=== PATIENT | male | born 1980 | race American Indian/Alaskan Native ===

== ENCOUNTER 2019-11-19 03:54 | Inpatient (IN) | payer OTHER ==
[2019-11-19 04:41] LABS: Basophils # (Auto) 0.1 K/mm3 (0.0-0.1); Basophils % (Auto) 0.9 % (0.0-1.8); Eosinophils # (Auto) 0.1 K/mm3 (0.0-0.4); Eosinophils % (Auto) 0.5 % (0.0-4.3); Hematocrit 42.3 % (35.5-45.6); Hemoglobin 13.6 gm/dl (11.8-15.2); Mean Corpuscular HGB Conc 32 % (32-34); Mean Corpuscular Volume 81 fl (84-94); Monocytes # (Auto) 0.2 K/mm3 (0.0-0.8); Monocytes % (Auto) 1.6 % (0.0-7.3); Platelet Count 399 K/mm3 (140-440); Red Cell Distribution Width 14.5 % (13.2-15.2)
[2019-11-19 04:41] LABS: ABG Base Excess -10.2 mmol/L (-2.0-3.0); ABG HCO3 18.5 mmol/L (20.0-26.0); ABG Methemoglobin 0.6 % (0.0-1.5); ABG Oxygen Saturation 76.7 % (95.0-99.0); ABG PCO2 52.1 mm Hg; ABG PO2 51.2 mm Hg (80.0-90.0)
[2019-11-19] MEDS ORDERED: MINERAL OIL/PETROLATUM, WHITE OPHTH OINT 3.5 GM OU PRN (04:42)
[2019-11-19] MEDS ORDERED: LIP THERAPY VASELINE TP PRN (04:42)
--- NOTE | 2019-11-19 04:51 | Emergency Department Report ---
HPI - General Chief Complaint: Overdose Time Seen by Provider: 11/19/19 04:39 - HPI HPI: Room 25 --> 1 The patient is a 39-year-old male presenting with chief complaint of overdose. Per EMS the patient was found inside [employer] slumped over on the floor leaning up against the refrigerated beverage containers unresponsive. The patient was administered Narcan 2 mg by EMS and they report the patient began breathing quicker. The patient was administered a second round of Narcan 2 mg and he began to awaken. Patient appears confused and states he does not know what happened. Patient admits to taking "pills" but does not know what they are. Patient denies any other coingestants. Patient complains of chest pain which he states he just noticed since reawakening. In the ED the patient was persistently hypoxic in the 70s even when placed on BiPAP with an FiO2 100%. Subsequently the decision to intubate using RSI was made Location: [See above] Duration: [See above] Quality: [See above] Severity: [See above] Timing: [See above] Context: [See above] Modifying factors: [See above] Associated signs and symptoms: [see above] ED Past Medical Hx - Past Medical History Previous Medical History?: Yes Additional medical history: drug abuse - Surgical History Past Surgical History?: Yes - Family History Family history: no significant - Social History Smoking Status: Current Every Day Smoker Substance Use Type: Alcohol, Cocaine ED Review of Systems ROS: Stated complaint: POSS OD Other details as noted in HPI Respiratory: shortness of breath Cardiovascular: chest pain Neurological: confusion Physical Exam - Physical Exam Vital Signs: Vital Signs 11/19/19 03:55 Pulse Rate 100 H Respiratory 41 H Rate Blood Pressure 128/82 O2 Sat by Pulse 75 L Oximetry Physical Exam: GENERAL: The patient is well-developed well-nourished male appearing lethargic lying on stretcher with 100% O2 nonrebreather in place. [] HEENT: Normocephalic. Atraumatic. Extraocular motions are intact. Patient has moist mucous membranes. NECK: Supple. Trachea midline CHEST/LUNGS: Tachypnea. No wheezing auscultated HEART/CARDIOVASCULAR: Regular. There is no tachycardia. There is no gallop rub or murmur. ABDOMEN: Abdomen is soft, nontender. Patient has normal bowel sounds. There is no abdominal distention. SKIN: There is no rash. There is no edema. There is no diaphoresis. NEURO: The patient is awake and oriented but appears lethargic. The patient is cooperative. The patient has no focal neurologic deficits. The patient has normal speech MUSCULOSKELETAL: There is no evidence of acute injury. ED Course Vital Signs 11/19/19 03:55 Pulse Rate 100 H Respiratory 41 H Rate Blood Pressure 128/82 O2 Sat by Pulse 75 L Oximetry - Consultations Consultation #1: 11/19/19 05:46 South Asian History Professor paged 11/19/19 05:[address] Navarro - Intubation Time Out Performed: Yes Sedative: Etomidate Mg Given: 12 Paralytic: Succinylcholine Mg Given: 100 Laryngoscope: David Size: 3 ET Tube Size: 8 Tube Secured Depth (cm): 24 Tube Secured Location: lips Tube Placement Confirmation: equal breath sounds bilat, no breath sounds over epi, confirmation by capnometr Patient Tolerated Procedure: well Intubation Complications: other (transient bradycardia ) ED Medical Decision Making - Lab Data Result diagrams: 11/19/19 04:21 11/19/19 04:21 Laboratory Tests 11/19/19 11/19/19 11/19/19 04:20 04:21 04:21 WBC 11.2 H RBC 5.20 H Hgb 13.6 Hct 42.3 MCV 81 L MCH 26 L MCHC 32 RDW 14.5 Plt Count 399 Lymph % (Auto) 18.0 [place] % (Auto) 1.6 Eos % (Auto) 0.5 Baso % (Auto) 0.9 Lymph # 2.0 [place] # 0.2 Eos # 0.1 Baso # 0.1 Seg Neutrophils % 79.0 H Seg Neutrophils # 8.9 H PT 15.7 H INR 1.23 H ABG pH 7.168 L* ABG pCO2 52.1 ABG pO2 51.2 L ABG HCO3 18.5 L ABG O2 Saturation 76.7 L ABG O2 Content 14.3 ABG Base Excess -10.2 L ABG Hemoglobin 13.5 L ABG Carboxyhemoglobin 1.6 ABG Methemoglobin 0.6 Oxyhemoglobin 75.0 L FiO2 100 Sodium Potassium Chloride Carbon Dioxide Anion Gap BUN Creatinine Estimated GFR BUN/Creatinine Ratio Glucose Calcium Total Bilirubin AST ALT Alkaline Phosphatase Total Creatine Kinase CK-MB (CK-2) CK-MB (CK-2) Rel Index Troponin T NT-Pro-B Natriuret Pep Total Protein Albumin Albumin/Globulin Ratio Salicylates Acetaminophen Plasma/Serum Alcohol 11/19/19 11/19/19 11/19/19 04:21 04:21 04:56 WBC RBC Hgb Hct MCV MCH MCHC RDW Plt Count Lymph % (Auto) [place] % (Auto) Eos % (Auto) Baso % (Auto) Lymph # [place] # Eos # Baso # Seg Neutrophils % Seg Neutrophils # PT INR ABG pH ABG pCO2 ABG pO2 ABG HCO3 ABG O2 Saturation ABG O2 Content ABG Base Excess ABG Hemoglobin ABG Carboxyhemoglobin ABG Methemoglobin Oxyhemoglobin FiO2 Sodium 136 L Potassium 5.5 H Chloride 96.6 L Carbon Dioxide 18 L Anion Gap 27 BUN 21 H Creatinine 2.2 H Estimated GFR 33 BUN/Creatinine Ratio 10 Glucose 393 H Calcium 9.3 Total Bilirubin < 0.20 AST 27 ALT 32 Alkaline Phosphatase 61 Total Creatine Kinase 392 H CK-MB (CK-2) 4.0 CK-MB (CK-2) Rel Index 1.0 Troponin T < 0.010 NT-Pro-B Natriuret Pep 55.89 Total Protein 7.2 Albumin 4.6 Albumin/Globulin Ratio 1.8 Salicylates < 0.3 L Acetaminophen Plasma/Serum Alcohol < 0.01 11/19/19 04:56 WBC RBC Hgb Hct MCV MCH MCHC RDW Plt Count Lymph % (Auto) [place] % (Auto) Eos % (Auto) Baso % (Auto) Lymph # [place] # Eos # Baso # Seg Neutrophils % Seg Neutrophils # PT INR ABG pH ABG pCO2 ABG pO2 ABG HCO3 ABG O2 Saturation ABG O2 Content ABG Base Excess ABG Hemoglobin ABG Carboxyhemoglobin ABG Methemoglobin Oxyhemoglobin FiO2 Sodium Potassium Chloride Carbon Dioxide Anion Gap BUN Creatinine Estimated GFR BUN/Creatinine Ratio Glucose Calcium Total Bilirubin AST ALT Alkaline Phosphatase Total Creatine Kinase CK-MB (CK-2) CK-MB (CK-2) Rel Index Troponin T NT-Pro-B Natriuret Pep Total Protein Albumin Albumin/Globulin Ratio Salicylates Acetaminophen < 5.0 L Plasma/Serum Alcohol - EKG Data -: EKG Interpreted by Me EKG shows normal: sinus rhythm Rate: normal - EKG Data When compared to previous EKG there are: previous EKG unavailable Interpretation: nonspecific ST-T wave janice (T-wave inversion in lead 3) - Radiology Data Radiology results: report reviewed (chest x-ray #1), image reviewed (chest x-ray #1, chest x-ray #2) interpreted by me: Chest x-ray #1- left lung haziness Chest x-ray #2-ET tube in appropriate position. Left long haziness [facility] [address] [place] [address] XRay Report Signed Patient: ALYSE HELTON MR#: [id number] : 1980 Acct:[id number] Age/Sex: 39 / M ADM Date: 11/19/19 Loc: ED Attending Dr: Ordering Physician: NIEVES DAWN MD Date of Service: 11/19/19 Procedure(s): XR chest 1V ap Accession Number(s): [id number] cc: NIEVES DAWN MD Fluoro Time In Minutes: CHEST 1 VIEW, 11/19/2019 4:14 AM CLINICAL INFORMATION/INDICATION: Shortness of breath COMPARISON: None FINDINGS: SUPPORT DEVICES: None. HEART: Cardiac silhouette is normal in size. LUNGS/PLEURA: There is faint airspace disease throughout the left lung. The right lung appears grossly clear. No large pleural effusion is visualized. ADDITIONAL FINDINGS: No additional acute findings. IMPRESSION: 1. Left lung airspace disease concerning for pneumonia. Signer Name: Edie Davis MD Signed: 11/19/2019 4:47 AM Workstation Name: [id number] Transcribed By: EB Dictated By: Edie Davis MD Electronically Authenticated By: Edie Davis MD Signed Date/Time: 11/19/19446 DD/ 5 TD/TT: [address] [address] XRay Report Signed Patient: ALYSE HELTON MR#: [id number] : 1980 Acct:[id number] Age/Sex: 39 / M ADM Date: 11/19/19 Loc: ED Attending Dr: Ordering Physician: NIEVES DAWN MD Date of Service: 11/19/19 Procedure(s): XR chest 1V ap Accession Number(s): [id number] cc: NIEVES DAWN MD Fluoro Time In Minutes: CHEST 1 VIEW, 11/19/2019 4:45 AM CLINICAL INFORMATION/INDICATION: Respiratory failure COMPARISON: Chest radiograph, 11/19/2019 at 4:14 AM FINDINGS: SUPPORT DEVICES: There has been interval placement of endotracheal tube with tip approximately 3 cm above the level of the kaity. An esophagogastric tube is also been placed with distal end below the level of the diaphragm. HEART: The heart is normal in size. LUNGS/PLEURA: Parenchymal disease is again noted throughout the left lung. Right perihilar interstitial disease is now noted. ADDITIONAL FINDINGS: No additional acute findings. IMPRESSION: 1. Placement of endotracheal tube and esophagogastric tube as above. 2. Asymmetric parenchymal disease. Considerations would include pneumonia or pulmonary edema. Signer Name: Edie Davis MD Signed: 11/19/2019 5:27 AM Workstation Name: [id number] Transcribed By: EB Dictated By: Edie Davis MD Electronically Authenticated By: Edie Davis MD Signed Date/Time: 11/19/19526 DD/ 4 TD/TT: - Differential Diagnosis overdose, aspiration pneumonia, pulmonary edema, respiratory failure Critical Care Time: Yes Critical care time in (mins) excluding proc time.: 45 Critical care attestation.: If time is entered above; I have spent that time in minutes in the direct care of this critically ill patient, excluding procedure time. ED Disposition Clinical Impression: Respiratory failure, Overdose, Pneumonia, Renal insufficiency, Hyperkalemia, Hyperglycemia Disposition: OP ADMIT IP TO THIS HOSP Is pt being admited?: Yes Condition: Serious Instructions: Bacterial Pneumonia (ED) Referrals: PRIMARY CARE, [Primary Care Provider] - 3-5 Days Time of Disposition: 05:30 (hospitalist paged (Dr Fermin))
[2019-11-19 04:52] LABS: ABG PH 7.168 pH Units (7.350-7.450)
[2019-11-19] MEDS ORDERED: LORazepam 2 MG/ML VIAL ONE (04:56)
[2019-11-19 04:59] LABS: INR 1.23 (0.87-1.13)
[2019-11-19 05:00] LABS: Alanine Aminotransferase 32 units/L (7-56); Albumin 4.6 g/dL (3.9-5); BUN/Creatinine Ratio 10; Blood Urea Nitrogen 21 mg/dL (9-20); Calcium 9.3 mg/dL (8.4-10.2); Hemolysis Index 39
[2019-11-19] MEDS ORDERED: MIDAZOLAM 5 MG/5 ML INJ MDV IV NR (05:00)
[2019-11-19] MEDS ORDERED: cefTRIAXone/NS 1 GM/50 ML 1 GM/50 ML BAG IV ONE (05:20)
[2019-11-19] MEDS ORDERED: AZITHROMYCIN 500 MG in SODIUM CHLORIDE 0.9% 250ML 250 ML IV ONE (05:20)
[2019-11-19] MEDS ORDERED: INSULIN REGULAR, HUMAN 100 UNITS/1 ML IV ONE ×2 (05:28→22:52)
--- NOTE | 2019-11-19 05:31 | XRay Report ---
CHEST 1 VIEW, 11/19/2019 4:45 AM CLINICAL INFORMATION/INDICATION: Respiratory failure COMPARISON: Chest radiograph, 11/19/2019 at 4:14 AM FINDINGS: SUPPORT DEVICES: There has been interval placement of endotracheal tube with tip approximately 3 cm a sally the level of the kaity. An esophagogastric tube is also been placed with distal end below the l evel of the diaphragm. HEART: The heart is normal in size. LUNGS/PLEURA: Parenchymal disease is again noted throughout the left lung. Right perihilar interstiti al disease is now noted. ADDITIONAL FINDINGS: No additional acute findings. IMPRESSION: 1. Placement of endotracheal tube and esophagogastric tube as above. 2. Asymmetric parenchymal disease. Considerations would include pneumonia or pulmonary edema. Signer Name: Edie Davis MD Signed: 11/19/2019 5:27 AM Workstation Name: [id number]
[2019-11-19] MEDS: MIDAZOLAM 2 MG/2 ML INJ IV PRN ×2 (05:45→06:00)
[2019-11-19 06:01] LABS: Amphetamine Screen,Urine PRESUMPTIVE NEGATIVE; Benzodiazepines Screen,Urine PRESUMPTIVE NEGATIVE; Cannabinoid Screen,Urine PRESUMPTIVE NEGATIVE; Cocaine Screen,Urine PRESUMPTIVE NEGATIVE; Methadone Screen,Urine PRESUMPTIVE NEGATIVE
[2019-11-19] MEDS ORDERED: LORazepam 2 MG/ML VIAL IV ONE (06:15)
[2019-11-19] MEDS ORDERED: ETOMIDATE 20 MG/10 ML INJ IV ONE (06:15)
[2019-11-19] MEDS ORDERED: SUCCINYLCHOLINE CHLORIDE 200 MG/10 ML INJ MDV IV ONE (06:15)
[2019-11-19 06:20] LABS: Opiate Screen,Urine PRESUMPTIVE POSITIVE
--- NOTE | 2019-11-19 06:55 | Event Note ---
Date: 11/19/19 Called by ED re patient who was unresponsive and is on MVS-unable to oxygenate with high ventilator settings. ABG ordered, follow up ABG reviewed. Discussed with RT, changed ventilator mode and settings- follow up ABG ordered. Full consult to follow.
[2019-11-19] MEDS: MIDAZOLAM 100 MG in SODIUM CHLORIDE 0.9% 80 ML IV SCH ×2 (07:15→21:39)
[2019-11-19] MEDS ORDERED: fentaNYL 100 MCG/2 ML INJ IV ONE (11:13)
[2019-11-19] MEDS ORDERED: fentaNYL 100 MCG/2 ML INJ ONE (11:22)
[2019-11-19] MEDS ORDERED: fentaNYL 100 MCG/2 ML INJ IV PRN (11:27)
[2019-11-19] MEDS ORDERED: D5W/0.9% NACL 1,000 ML IV ONE (11:32)
[2019-11-19] MEDS ORDERED: D5W/0.9% NACL 1,000 ML IV SCH (12:00)
--- NOTE | 2019-11-19 12:38 | History and Physical Report ---
History of Present Illness Date of examination: 11/19/19 Date of admission: 11/19/19 06:33 Chief complaint: OD History of present illness: The patient is a 39-year-old male presenting with chief complaint of overdose. Per EMS/ER record, the patient was found inside [employer] station slumped over on the floor leaning up against the refrigerated beverage containers unresponsive. The patient was administered Narcan 2 mg by EMS and they report the patient began breathing quicker. The patient was administered a second round of Narcan 2 mg and he began to awaken. On admission, patient appeared confused and stated to the ER physician he does not know what happened. Patient admitted to the ER physician of taking "pills" but does not know what they were. Patient denied any other coingestants. Patient complained of chest pain which he states he just noticed after arrival to the emergency department. In the ED, the patient was persistently hypoxic in the 70s even when placed on BiPAP with an FiO2 100%. Subsequently the decision to intubate using RSI was made by the ER physician. Upon my evaluation, patient was noted to be intubated and somnolent. Family was at the bedside confirming that patient has had a long history of substance abuse for 20 years. Past History Past Medical History: No medical history Past Surgical History: No surgical history Social history: other (Significant substance/drug abuse.) Family history: no significant family history Medications and Allergies Allergies Allergy/AdvReac Type Severity Reaction Status Date / Time No Known Allergies Allergy Verified 11/19/19 05:44 Active Meds: Active Medications Fentanyl (Sublimaze) 50 mcg IV Q10MIN PRN PRN Reason: ANALGESIA Hydrophilic Ointment (Vaseline Lip Therapy) 1 applic TP Q2HR PRN PRN Reason: Dry Lips Midazolam HCl 100 mg/ Sodium (Chloride) 100 mls @ 2 mls/hr IV TITR JAVED; Pro tocol Last Titration: 11/19/19 12:13 Dose: 5 mg/hr, 5 mls/hr Documented by: Dextrose/Sodium Chloride (D5ns) 1,000 mls @ 100 mls/hr IV DIRECT JAVED Last Admin: 11/19/19 11:43 Dose: 100 mls/hr Documented by: Fentanyl Citrate (Fentanyl Drip Premix) 2,000 mcg in 100 mls @ 5.625 mls/hr IV TITR JAVED; Protocol Midazolam HCl (Versed) 2 mg IV Q10MIN PRN PRN Reason: Sedation Last Admin: 11/19/19 06:00 Dose: 2 mg Documented by: Multi-Ingred Cream/Lotion/Oil/Oint (Artificial Tears Ophth Oint) 1 applic OU Q4HR PRN PRN Reason: Dry Eye(s) Review of Systems ROS unobtainable: due to endotracheal tube, due to mental status Exam - Constitutional Vitals: Temp Pulse Resp BP Pulse Ox 97.4 F L 102 H 19 119/77 100 11/19/19 04:00 11/19/19 12:00 11/19/19 12:00 11/19/19 12:00 11/19/19 12:00 General appearance: Present: mild distress (Patient is somnolent and lethargic), well-nourished, other (Patient is orally intubated on mechanical ventilation.) - EENT Eyes: Present: PERRL ENT: hearing intact, clear oral mucosa - Neck Neck: Present: supple, normal ROM - Respiratory Respiratory effort: normal Respiratory: bilateral: CTA - Cardiovascular Heart Sounds: Present: S1 & S2. Absent: rub, click - Extremities Extremities: pulses symmetrical, No edema Peripheral Pulses: within normal limits - Abdominal General gastrointestinal: Present: soft, non-tender, non-distended, normal bowel sounds Male genitourinary: Present: normal - Integumentary Integumentary: Present: clear, warm, dry - Musculoskeletal Musculoskeletal: gait normal, strength equal bilaterally - Psychiatric Psychiatric: appropriate mood/affect, intact judgment & insight - Neurologic Neurologic: CNII-XII intact, moves all extremities Results - Labs CBC & Chem 7: 11/19/19 04:21 11/19/19 04:21 Labs: Laboratory Last Values WBC 11.2 K/mm3 (4.5-11.0) H 11/19/19 04:21 RBC 5.20 M/mm3 (3.65-5.03) H 11/19/19 04:21 Hgb 13.6 gm/dl (11.8-15.2) 11/19/19 04:21 Hct 42.3 % (35.5-45.6) 11/19/19 04:21 MCV 81 fl (84-94) L 11/19/19 04:21 MCH 26 pg (28-32) L 11/19/19 04:21 MCHC 32 % (32-34) 11/19/19 04:21 RDW 14.5 % (13.2-15.2) 11/19/19 04:21 Plt Count 399 K/mm3 (140-440) 11/19/19 04:21 Lymph % (Auto) 18.0 % (13.4-35.0) 11/19/19 04:21 [place] % (Auto) 1.6 % (0.0-7.3) 11/19/19 04:21 Eos % (Auto) 0.5 % (0.0-4.3) 11/19/19 04:21 Baso % (Auto) 0.9 % (0.0-1.8) 11/19/19 04:21 Lymph # 2.0 K/mm3 (1.2-5.4) 11/19/19 04:21 [place] # 0.2 K/mm3 (0.0-0.8) 11/19/19 04:21 Eos # 0.1 K/mm3 (0.0-0.4) 11/19/19 04:21 Baso # 0.1 K/mm3 (0.0-0.1) 11/19/19 04:21 Seg Neutrophils % 79.0 % (40.0-70.0) H 11/19/19 04:21 Seg Neutrophils # 8.9 K/mm3 (1.8-7.7) H 11/19/19 04:21 PT 15.7 Sec. (12.2-14.9) H 11/19/19 04:21 INR 1.23 (0.87-1.13) H 11/19/19 04:21 POC ABG pH 7.186 (7.35-7.45) L 11/19/19 09:04 ABG pH 7.168 pH Units (7.350-7.450) L* 11/19/19 04:20 POC ABG pCO2 66.6 (35-45) H 11/19/19 09:04 ABG pCO2 52.1 mm Hg 11/19/19 04:20 POC ABG pO2 80 (80-105) 11/19/19 09:04 ABG pO2 51.2 mm Hg (80.0-90.0) L 11/19/19 04:20 POC ABG HCO3 25.2 (22-26 mml/L) 11/19/19 09:04 ABG HCO3 18.5 mmol/L (20.0-26.0) L 11/19/19 04:20 POC ABG Total CO2 27 (23-27mmol/L) 11/19/19 09:04 POC ABG O2 Sat 92 11/19/19 09:04 ABG O2 Saturation 76.7 % (95.0-99.0) L 11/19/19 04:20 ABG O2 Content 14.3 (0.0-44) 11/19/19 04:20 POC ABG Base Excess -3 ((-2) - (+3)mmol/L) 11/19/19 09:04 ABG Base Excess -10.2 mmol/L (-2.0-3.0) L 11/19/19 04:20 ABG Hemoglobin 13.5 gm/dl (14.0-18.0) L 11/19/19 04:20 ABG Carboxyhemoglobin 1.6 % (0.0-5.0) 11/19/19 04:20 ABG Methemoglobin 0.6 % (0.0-1.5) 11/19/19 04:20 Oxyhemoglobin 75.0 % (95.0-99.0) L 11/19/19 04:20 FiO2 100 % 11/19/19 09:04 Sodium 136 mmol/L (137-145) L 11/19/19 04:21 Potassium 5.5 mmol/L (3.6-5.0) H 11/19/19 04:21 Chloride 96.6 mmol/L (98-107) L 11/19/19 04:21 Carbon Dioxide 18 mmol/L (22-30) L 11/19/19 04:21 Anion Gap 27 mmol/L 11/19/19 04:21 BUN 21 mg/dL (9-20) H 11/19/19 04:21 Creatinine 2.2 mg/dL (0.8-1.5) H 11/19/19 04:21 Estimated GFR 33 ml/min 11/19/19 04:21 BUN/Creatinine Ratio 10 % 11/19/19 04:21 Glucose 393 mg/dL (75-100) H 11/19/19 04:21 Calcium 9.3 mg/dL (8.4-10.2) 11/19/19 04:21 Total Bilirubin < 0.20 mg/dL (0.1-1.2) 11/19/19 04:21 AST 27 units/L (5-40) 11/19/19 04:21 ALT 32 units/L (7-56) 11/19/19 04:21 Alkaline Phosphatase 61 units/L (35-129) 11/19/19 04:21 Total Creatine Kinase 392 units/L (55-170) H 11/19/19 04:21 CK-MB (CK-2) 4.0 ng/mL (0.0-4.0) 11/19/19 04:21 CK-MB (CK-2) Rel Index 1.0 (0-4) 11/19/19 04:21 Troponin T < 0.010 ng/mL (0.00-0.029) 11/19/19 04:21 NT-Pro-B Natriuret Pep 55.89 pg/mL (0-450) 11/19/19 04:21 Total Protein 7.2 g/dL (6.3-8.2) 11/19/19 04:21 Albumin 4.6 g/dL (3.9-5) 11/19/19 04:21 Albumin/Globulin Ratio 1.8 % 11/19/19 04:21 Salicylates < 0.3 mg/dL (2.8-20.0) L 11/19/19 04:56 Urine Opiates Screen Presumptive positive 11/19/19 Unknown Urine Methadone Screen Presumptive negative 11/19/19 Unknown Acetaminophen < 5.0 ug/mL (10.0-30.0) L 11/19/19 04:56 Ur Barbiturates Screen Presumptive negative 11/19/19 Unknown Ur Phencyclidine Scrn Presumptive negative 11/19/19 Unknown Ur Amphetamines Screen Presumptive negative 11/19/19 Unknown U Benzodiazepines Scrn Presumptive negative 11/19/19 Unknown Urine Cocaine Screen Presumptive negative 11/19/19 Unknown U Marijuana (THC) Screen Presumptive negative 11/19/19 Unknown Drugs of Abuse Note Disclamer 11/19/19 Unknown Plasma/Serum Alcohol < 0.01 % (0-0.07) 11/19/19 04:21 Assessment and Plan Assessment and plan: Acute hypoxemic hypercapnic respiratory failure. Continue on mechanical ventilation per pulmonary. Pulmonary consulted. Follow-up serial ABG. Opioid overdose. Patient urine drug screen positive for opiates. Patient has a long history of polysubstance abuse of various different types of illegal street drugs per family. We will continue to monitor. Psychiatric consultation when patient medically stable. Acute kidney injury. Etiology likely secondary to ATN from hypotension from drug overdose. We do not have a baseline creatinine to compare. Continue IV fluid hydration. Check renal ultrasound. Nephrology consultation. Aspiration pneumonia. Chest x-ray reveals opacities. Start Levaquin. Hyperkalemia. Etiology secondary to renal insufficiency. Hyperglycemia. Family reports no history of diabetes mellitus type 2. Check hemoglobin A1c.
--- NOTE | 2019-11-19 15:01 | Consultation ---
History of Present Illness - History of Present Illness Thank you for the consultation ! My assessment and plan are as follows: CHRIS, likely due to acute tubular necrosis given the clinical scenario of hypoxemia respiratory failure patient also appears to be somewhat intravascularly volume depleted, we'll do a follow-up labs in the evening and see how he does Respiratory failure, having issues with oxygenation patient has been noted to have lung infiltrate we'll give cautious fluid Acidosis: Continue to monitor noted to have severe respiratory failure Admitted with opiate toxicity, currently intubated he is arousable There is no prior history of this patient no family member available at the bedside there is no telephone number listed His renal prognosis appears to be very guarded is quite likely that if his renal function continues to worsen or if it of left severe electrolyte disturbances he may need to start renal replacement therapy Patient also needs to be seen by pulmonary critical care for respiratory failure intubation and having issues with oxygenation Care plan was discussed with patient's nurse in the ER, we will follow up on the labs in the evening We'll review the results of ultrasonogram when available We'll continue to follow and make recommendation from renal standpoint If you have any questions please feel free to contact me at [phone] Jeremie Nagy M.D. [facility] [address] [place] [address] History of presenting illness 39-year-old male who has been admitted here with respiratory failure, opiate overdose, is currently intubated and unable to provide me with any history there is no family member by the bedside, no telephone number to contact anyone, patient is easily arousable, he appears to be hemodynamically relatively stable has been noted to have respiratory failure with issues with oxygenation hypoxem ia acidosis, Also has mild hyperkalemia creatinine is currently in the 2 range, No further history could be obtained about his current health status, chart was reviewed Past medical history: Unable to obtain Family history, social history: Noted from the chart Current medication: Reviewed from the chart Review of system: Unable to obtain patient intubated with opiate overdose Physical examination: General: No acute distress, he is arousable intubated HEENT: Oral mucosa moist no icterus, no facial swelling Neck: Supple no thyromegaly no lymphadenopathy no JVD Chest: Diminished breath sounds at lung bases crackles and wheezes on the left side Heart: Regular rate and rhythm S1-S2 heard no S3-S4 Abdomen: Soft nontender no organomegaly no masses palpable no renal bruit no suprapubic masses no CVA tenderness Dermatology: No petechial skin rashes noted Extremity: Patient does not have edema in fact skin appears to be dry, dry skin Musculoskeletal: No joint effusion noted in knee and ankle area Psych: No evidence of agitation and aggression noted Neurological: Patient is arousable he does follow some commands is no evidence of any myoclonus or tremors Back: No CVA tenderness Past History Past Medical History: No medical history Past Surgical History: No surgical history Social history: other (Significant substance/drug abuse.) Family history: no significant family history Medications and Allergies Allergies Allergy/AdvReac Type Severity Reaction Status Date / Time No Known Allergies Allergy Verified 11/19/19 05:44 Home Medications Medication Instructions Recorded Confirmed Last Taken Type No Known Home Medications [No 11/19/19 11/19/19 Unknown History Reported Home Medications] Active Meds: Active Medications Enoxaparin Sodium (Enoxaparin) 30 mg SUB-Q QDAY JAVDE Fentanyl (Sublimaze) 50 mcg IV Q10MIN PRN PRN Reason: ANALGESIA Hydrophilic Ointment (Vaseline Lip Therapy) 1 applic TP Q2HR PRN PRN Reason: Dry Lips Midazolam HCl 100 mg/ Sodium (Chloride) 100 mls @ 2 mls/hr IV TITR JAVED; Protocol Last Titration: 11/19/19 12:13 Dose: 5 mg/hr, 5 mls/hr Documented by: Dextrose/Sodium Chloride (D5ns) 1,000 mls @ 100 mls/hr IV DIRECT JAVED Last Admin: 11/19/19 11:43 Dose: 100 mls/hr Documented by: Fentanyl Citrate (Fentanyl Drip Premix) 2,000 mcg in 100 mls @ 5.625 mls/hr IV TITR JAVED; Protocol Levofloxacin/Dextrose (Levaquin 750mg/150ml) 750 mg in 150 mls @ 100 mls/hr IV Q24HR JAVED; Protocol Midazolam HCl (Versed) 2 mg IV Q10MIN PRN PRN Reason: Sedation Last Admin: 11/19/19 06:00 Dose: 2 mg Documented by: Multi-Ingred Cream/Lotion/Oil/Oint (Artificial Tears Ophth Oint) 1 applic OU Q4HR PRN PRN Reason: Dry Eye(s) Sodium Chloride (Sodium Chloride Flush Syringe 10 Ml) 10 ml IV BID JAVED Sodium Chloride (Sodium Chloride Flush Syringe 10 Ml) 10 ml IV PRN PRN PRN Reason: LINE FLUSH Exam - Vital Signs Vital signs: Vital Signs Pulse Resp BP Pulse Ox 100 H 41 H 128/82 75 L 11/19/19 03:55 11/19/19 03:55 11/19/19 03:55 11/19/19 03:55 Results - Lab Results 11/20/19 05:57 11/20/19 05:57 Most recent lab results ABG pH 7.168 pH Units (7.350-7.450) L* 11/19/19 04:20 ABG pCO2 52.1 mm Hg 11/19/19 04:20 ABG pO2 51.2 mm Hg (80.0-90.0) L 11/19/19 04:20 ABG HCO3 18.5 mmol/L (20.0-26.0) L 11/19/19 04:20 ABG O2 Saturation 76.7 % (95.0-99.0) L 11/19/19 04:20 Calcium 9.3 mg/dL (8.4-10.2) 11/19/19 04:21
[2019-11-19] MEDS: fentaNYL DRIP Premix 2,000 MCG/100 ML BAG IV SCH ×2 (15:29→21:12)
--- NOTE | 2019-11-19 18:13 | XRay Report ---
ABDOMEN 1 VIEW(S) INDICATION / CLINICAL INFORMATION: OG PLACEMENT. COMPARISON: None available. FINDINGS: TUBES / LINES: The tip of the esophagogastric tube projects over the body of the stomach. BOWEL GAS PATTERN/EXTRALUMINAL GAS: No significant abnormality. No pneumatosis or secondary signs of free air. ADDITIONAL FINDINGS: No significant additional findings. IMPRESSION: 1. Esophagogastric tube tip projects over the body the stomach. Signer Name: Erickson Christine MD Signed: 11/19/2019 6:09 PM Workstation Name: [id number]
--- NOTE | 2019-11-19 20:41 | Ultrasound Report ---
ULTRASOUND RENAL INDICATION: ARF. COMPARISON: No relevant prior imaging study available. FINDINGS: RIGHT KIDNEY: Size: 11.7 cm. Echogenicity: Normal. Cortical thickness: Normal. Stones: None. Hydronephrosis: None. Cyst or mass: None. LEFT KIDNEY: Size: 12.7 cm. Echogenicity: Normal. Cortical thickness: Normal. Stones: None. Hydronephrosis: None. Cyst or mass: None. Urinary Bladder: Collapsed around a Smith catheter, not visualized. Free Fluid: None. Additional Findings: None. IMPRESSION 1. No acute sonographic abnormality of the kidneys. Signer Name: George Wade MD Signed: 11/19/2019 8:37 PM Workstation Name: [id number]
[2019-11-19] MEDS ORDERED: fentaNYL DRIP Premix 2,000 MCG/100 ML BAG IV ONE (21:08)
[2019-11-19] MEDS: D5W IV SCH (21:41)
[2019-11-19] MEDS: NACL IV SCH (21:41)
[2019-11-19] MEDS: SODIUM BICARBONATE IV SCH (21:41)
[2019-11-19 22:32] LABS: Uric Acid 10.2 mg/dL (3.5-7.6)
[2019-11-19] MEDS ORDERED: CALCIUM GLUCONATE 1,000 MG in SODIUM CHLORIDE 0.9% 100 ML IV ONE (22:52)
[2019-11-19] MEDS ORDERED: DEXTROSE 50% IN WATER (25GM) 50 ML SYRINGE IV ONE ×2 (22:53→23:07)
--- NOTE | 2019-11-19 22:55 | Event Note ---
Discussed with patients nurse Repeat potassium is being drawn stat < EKG is being done to see fo changes of hyperkalemia Advised to give one hour of calcium gluconate, one catie D 50 5 unit insulin for now stat If k is still high he will need stat HD I have advised her to call my covering MD supervisor electronics processing to get HD orders, he will need a vas cath placement as well stat
[2019-11-19] MEDS ORDERED: INSULIN REGULAR, HUMAN 100 UNITS/1 ML ONE (23:07)
[2019-11-20] MEDS ORDERED: SODIUM CHLORIDE 0.9% 100 ML IV PRN ×3 (00:02→03:48)
--- NOTE | 2019-11-20 00:07 | Event Note ---
Date: 11/20/19 Repeat K still 8.6 despite medical therapy . Discussed with hospitalist and Dr. Estevez . Patient needs vascath TOMAS . STAT dialysis ordered after vascath. Spoke with patient's nurse as well
[2019-11-20] MEDS ORDERED: SUCCINYLCHOLINE CHLORIDE 200 MG/10 ML INJ MDV ONE (00:24)
[2019-11-20] MEDS ORDERED: MIDAZOLAM 5 MG/5 ML INJ MDV IV ONE (00:24)
[2019-11-20] MEDS ORDERED: ETOMIDATE 20 MG/10 ML INJ IV ONE (00:24)
--- NOTE | 2019-11-20 01:04 | Consultation ---
History of Present Illness - Reason for Consult Consult date: 11/20/19 - History of Present Illness HPI: 39yo male found down and unresponsive who since hospitalization has developed worsening renal failure and elevated K+ despite medication. Patient intubated and unable to provide history. No family available. We have been consulted for vascath insertion for emergent dialysis. ROS: unable to obtain PE: intubated RRR groins soft, palopable femoral pulses Plan: emergent vascath insertion for dialysis Past History Past Medical History: No medical history Past Surgical History: No surgical history Social history: other (Significant substance/drug abuse.) Family history: no significant family history Medications and Allergies Allergies Allergy/AdvReac Type Severity Reaction Status Date / Time No Known Allergies Allergy Verified 11/19/19 05:44 Home Medications Medication Instructions Recorded Confirmed Last Taken Type No Known Home Medications [No 11/19/19 11/19/19 Unknown History Reported Home Medications] Active Meds: Active Medications Enoxaparin Sodium (Enoxaparin) 30 mg SUB-Q QDAY JAVED Fentanyl (Sublimaze) 50 mcg IV Q10MIN PRN PRN Reason: ANALGESIA Hydrophilic Ointment (Vaseline Lip Therapy) 1 applic TP Q2HR PRN PRN Reason: Dry Lips Midazolam HCl 100 mg/ Sodium (Chloride) 100 mls @ 2 mls/hr IV TITR JAVED; Protocol Last Admin: 11/19/19 21:39 Dose: 5 mg/hr, 5 mls/hr Documented by: Fentanyl Citrate (Fentanyl Drip Premix) 2,000 mcg in 100 mls @ 5.625 mls/hr IV TITR JAVED; Protocol Last Admin: 11/19/19 21:12 Dose: 2 mcg/kg/hr, 11.249 mls/hr Documented by: Levofloxacin/Dextrose (Levaquin 750mg/150ml) 750 mg in 150 mls @ 100 mls/hr IV Q24HR JAVED; Protocol Sodium Bicarbonate 75 meq/ (Dextrose/Sodium Chloride) 1,075 mls @ 100 mls/hr IV DIRECT JAVED Last Admin: 11/19/19 21:41 Dose: 100 mls/hr Documented by: Sodium Chloride (Nacl 0.9%) 100 mls @ 999 mls/hr IV EDGAR PRN PRN Reason: Hypotension Midazolam HCl (Versed) 2 mg IV Q10MIN PRN PRN Reason: Sedation Last Admin: 11/19/19 06:00 Dose: 2 mg Documented by: Multi-Ingred Cream/Lotion/Oil/Oint (Artificial Tears Ophth Oint) 1 applic OU Q4HR PRN PRN Reason: Dry Eye(s) Sodium Chloride (Sodium Chloride Flush Syringe 10 Ml) 10 ml IV BID JAVED Last Admin: 11/19/19 22:01 Dose: 10 ml Documented by: Sodium Chloride (Sodium Chloride Flush Syringe 10 Ml) 10 ml IV PRN PRN PRN Reason: LINE FLUSH Exam - Constitutional Vitals: Temp Pulse Resp BP Pulse Ox 97.4 F L 106 H 14 106/60 100 11/19/19 04:00 11/20/19 00:15 11/20/19 00:15 11/20/19 00:15 11/20/19 00:15 Results - Labs CBC & Chem 7: 11/19/19 04:21 11/19/19 22:49 Labs: Abnormal lab results 11/19/19 11/19/19 11/19/19 Range/Units 04:20 04:21 04:21 WBC 11.2 H (4.5-11.0) K/mm3 RBC 5.20 H (3.65-5.03) M/mm3 MCV 81 L (84-94) fl MCH 26 L (28-32) pg Seg Neutrophils % 79.0 H (40.0-70.0) % Seg Neutrophils # 8.9 H (1.8-7.7) K/mm3 PT 15.7 H (12.2-14.9) Sec. INR 1.23 H (0.87-1.13) POC ABG pH (7.35-7.45) ABG pH 7.168 L* (7.350-7.450) pH Units POC ABG pCO2 (35-45) POC ABG pO2 (80-105) ABG pO2 51.2 L (80.0-90.0) mm Hg ABG HCO3 18.5 L (20.0-26.0) mmol/L ABG O2 Saturation 76.7 L (95.0-99.0) % ABG Base Excess -10.2 L (-2.0-3.0) mmol/L ABG Hemoglobin 13.5 L (14.0-18.0) gm/dl Oxyhemoglobin 75.0 L (95.0-99.0) % Sodium (137-145) mmol/L Potassium (3.6-5.0) mmol/L Chloride (98-107) mmol/L Carbon Dioxide (22-30) mmol/L BUN (9-20) mg/dL Creatinine (0.8-1.5) mg/dL Glucose (75-100) mg/dL Uric Acid (3.5-7.6) mg/dL Calcium (8.4-10.2) mg/dL Total Creatine Kinase (55-170) units/L Salicylates (2.8-20.0) mg/dL Acetaminophen (10.0-30.0) ug/mL 11/19/19 11/19/19 11/19/19 Range/Units 04:21 04:56 04:56 WBC (4.5-11.0) K/mm3 RBC (3.65-5.03) M/mm3 MCV (84-94) fl MCH (28-32) pg Seg Neutrophils % (40.0-70.0) % Seg Neutrophils # (1.8-7.7) K/mm3 PT (12.2-14.9) Sec. INR (0.87-1.13) POC ABG pH (7.35-7.45) ABG pH (7.350-7.450) pH Units POC ABG pCO2 (35-45) POC ABG pO2 (80-105) ABG pO2 (80.0-90.0) mm Hg ABG HCO3 (20.0-26.0) mmol/L ABG O2 Saturation (95.0-99.0) % ABG Base Excess (-2.0-3.0) mmol/L ABG Hemoglobin (14.0-18.0) gm/dl Oxyhemoglobin (95.0-99.0) % Sodium 136 L (137-145) mmol/L Potassium 5.5 H (3.6-5.0) mmol/L Chloride 96.6 L (98-107) mmol/L Carbon Dioxide 18 L (22-30) mmol/L BUN 21 H (9-20) mg/dL Creatinine 2.2 H (0.8-1.5) mg/dL Glucose 393 H (75-100) mg/dL Uric Acid (3.5-7.6) mg/dL Calcium (8.4-10.2) mg/dL Total Creatine Kinase 392 H (55-170) units/L Salicylates < 0.3 L (2.8-20.0) mg/dL Acetaminophen < 5.0 L (10.0-30.0) ug/mL 11/19/19 11/19/19 11/19/19 Range/Units 06:29 09:04 12:42 WBC (4.5-11.0) K/mm3 RBC (3.65-5.03) M/mm3 MCV (84-94) fl MCH (28-32) pg Seg Neutrophils % (40.0-70.0) % Seg Neutrophils # (1.8-7.7) K/mm3 PT (12.2-14.9) Sec. INR (0.87-1.13) POC ABG pH 7.208 L 7.186 L 7.205 L (7.35-7.45) ABG pH (7.350-7.450) pH Units POC ABG pCO2 57.1 H 66.6 H 62.8 H (35-45) POC ABG pO2 59 L 58 L (80-105) ABG pO2 (80.0-90.0) mm Hg ABG HCO3 (20.0-26.0) mmol/L ABG O2 Saturation (95.0-99.0) % ABG Base Excess (-2.0-3.0) mmol/L ABG Hemoglobin (14.0-18.0) gm/dl Oxyhemoglobin (95.0-99.0) % Sodium (137-145) mmol/L Potassium (3.6-5.0) mmol/L Chloride (98-107) mmol/L Carbon Dioxide (22-30) mmol/L BUN (9-20) mg/dL Creatinine (0.8-1.5) mg/dL Glucose (75-100) mg/dL Uric Acid (3.5-7.6) mg/dL Calcium (8.4-10.2) mg/dL Total Creatine Kinase (55-170) units/L Salicylates (2.8-20.0) mg/dL Acetaminophen (10.0-30.0) ug/mL 11/19/19 11/19/19 11/19/19 Range/Units 12:57 17:59 22:00 WBC (4.5-11.0) K/mm3 RBC (3.65-5.03) M/mm3 MCV (84-94) fl MCH (28-32) pg Seg Neutrophils % (40.0-70.0) % Seg Neutrophils # (1.8-7.7) K/mm3 PT (12.2-14.9) Sec. INR (0.87-1.13) POC ABG pH 7.204 L 7.180 L (7.35-7.45) ABG pH (7.350-7.450) pH Units POC ABG pCO2 66.2 H 68.5 H (35-45) POC ABG pO2 68 L (80-105) ABG pO2 (80.0-90.0) mm Hg ABG HCO3 (20.0-26.0) mmol/L ABG O2 Saturation (95.0-99.0) % ABG Base Excess (-2.0-3.0) mmol/L ABG Hemoglobin (14.0-18.0) gm/dl Oxyhemoglobin (95.0-99.0) % Sodium 135 L (137-145) mmol/L Potassium 8.5 H* D (3.6-5.0) mmol/L Chloride (98-107) mmol/L Carbon Dioxide 18 L (22-30) mmol/L BUN 40 H (9-20) mg/dL Creatinine 3.5 H D (0.8-1.5) mg/dL Glucose 127 H (75-100) mg/dL Uric Acid 10.2 H (3.5-7.6) mg/dL Calcium 8.0 L (8.4-10.2) mg/dL Total Creatine Kinase (55-170) units/L Salicylates (2.8-20.0) mg/dL Acetaminophen (10.0-30.0) ug/mL 11/19/19 11/19/19 Range/Units 22:49 Unknown WBC (4.5-11.0) K/mm3 RBC (3.65-5.03) M/mm3 MCV (84-94) fl MCH (28-32) pg Seg Neutrophils % (40.0-70.0) % Seg Neutrophils # (1.8-7.7) K/mm3 PT (12.2-14.9) Sec. INR (0.87-1.13) POC ABG pH (7.35-7.45) ABG pH (7.350-7.450) pH Units POC ABG pCO2 (35-45) POC ABG pO2 (80-105) ABG pO2 (80.0-90.0) mm Hg ABG HCO3 (20.0-26.0) mmol/L ABG O2 Saturation (95.0-99.0) % ABG Base Excess (-2.0-3.0) mmol/L ABG Hemoglobin (14.0-18.0) gm/dl Oxyhemoglobin (95.0-99.0) % Sodium (137-145) mmol/L Potassium 8.6 H* (3.6-5.0) mmol/L Chloride (98-107) mmol/L Carbon Dioxide (22-30) mmol/L BUN (9-20) mg/dL Creatinine (0.8-1.5) mg/dL Glucose (75-100) mg/dL Uric Acid (3.5-7.6) mg/dL Calcium (8.4-10.2) mg/dL Total Creatine Kinase 396 H (55-170) units/L Salicylates (2.8-20.0) mg/dL Acetaminophen (10.0-30.0) ug/mL
--- NOTE | 2019-11-20 01:05 | Post Operative Note ---
Pre-op diagnosis: Acute Renal Failure Post-op diagnosis: same Procedure: Right Femoral Vascath Insertion Surgeon: BARBARA RUIZ Estimated blood loss: none Pathology: none Condition: critical Disposition: no change
[2019-11-20] MEDS ORDERED: ALBUMIN HUMAN 25% (25 GM/100 ML) INJ IV PRN (03:48)
--- NOTE | 2019-11-20 04:07 | XRay Report ---
CHEST 1 VIEW, 11/20/2019 2:27 AM CLINICAL INFORMATION/INDICATION: Respiratory failure COMPARISON: Chest radiograph, 11/19/2019 at 4:45 AM FINDINGS: SUPPORT DEVICES: Endotracheal tube and esophagogastric tube again noted. HEART: The cardiac silhouette is normal in size. LUNGS/PLEURA: There is diffuse airspace disease throughout the left lung. The right lung appears eve sly clear. No significant pleural effusion or pneumothorax is demonstrated. ADDITIONAL FINDINGS: No additional acute findings. IMPRESSION: 1. Diffuse left lung airspace disease most compatible with pneumonia. Signer Name: Edie Davis MD Signed: 11/20/2019 4:03 AM Workstation Name: [email or web address]
[2019-11-20 04:21] LABS: Hepatitis B Surface Antigen Non-Reactive (Negative); Hepatitis C Virus Antibody Non-Reactive (NonReactive)
[2019-11-20 06:06] LABS: Basophils % (Auto) 0.3 % (0.0-1.8); Hematocrit 35.1 % (35.5-45.6); Hemoglobin 11.5 gm/dl (11.8-15.2); Lymphocytes # (Auto) 0.8 K/mm3 (1.2-5.4); Mean Corpuscular HGB Conc 33 % (32-34); Mean Corpuscular Volume 80 fl (84-94); Monocytes # (Auto) 1.4 K/mm3 (0.0-0.8); Platelet Count 293 K/mm3 (140-440); Red Blood Count 4.41 M/mm3 (3.65-5.03); Red Cell Distribution Width 14.9 % (13.2-15.2)
[2019-11-20] MEDS ORDERED: fentaNYL DRIP Premix 2,000 MCG/100 ML BAG IV ONE (07:54)
[2019-11-20] MEDS: fentaNYL DRIP Premix 2,000 MCG/100 ML BAG IV SCH ×2 (08:30→14:34)
--- NOTE | 2019-11-20 08:33 | Progress Note ---
Subjective Interval history: Patient was seen today for follow-up on multiple renal related issues Events of this hospitalization were noted required hemodialysis yesterday for severe hyperkalemia and worsening renal failure Interdisciplinary notes were also reviewed Vitals intake output medications were reviewed Past medical history: Reviewed Family, social history: Reviewed Allergies: Reviewed Physical examination General: No acute distress Vitals: Reviewed HEENT: Oral mucosa moist no icterus Neck: Supple no thyromegaly nodular mass or JVD Chest: Clear to auscultation anteriorly Heart: Regular rate and rhythm S1-S2 heard no S3-S4 Abdomen: Soft nontender no suprapubic masses no organomegaly Extremity: Dry skin less than 1+ edema Psych: No evidence of any agitation and aggression noted Derm: No petechial rash Assessment and plan: Acute kidney injury requiring replacement therapy in the ICU setting now Severe hyperkalemia follow potassium was still elevated patient required hemodialysis will need to observe for now His osmolar gap normal Monitor for any meaningful recovery of renal function at this time patient will continue with hemodialysis likely 3-4 times per week depending on his metabolic control Opiate overdose, currently intubated respiratory failure, having issues with oxygenation, ? Lung disease? Interstitial edema ? Inflammatory, we'll need input from pulmonary medicine in the meantime he will need to continue with antibiotic therapy His renal prognosis appears to be very guarded at this time we'll continue to monitor Renal ultrasonogram obtained shows normal-appearing kidney Time spent in critical care setting 33 minutes of the bedside in a patient who is critically ill high mortality risk We'll continue to follow and make recommendation from renal standpoint Objective - Vital Signs Vital signs: Vital Signs - 12hr 11/19/19 11/19/19 11/19/19 20:45 21:00 21:15 Temperature Pulse Rate 99 H 99 H 98 H Respiratory 12 9 L 12 Rate Blood Pressure 107/65 104/60 105/62 O2 Sat by Pulse 100 100 100 Oximetry O2 Sat by Pulse Oximetry [ Anterior Bilateral Throughout] 11/19/19 11/19/19 11/19/19 21:30 21:45 22:00 Temperature Pulse Rate 99 H 96 H 97 H Respiratory 12 12 8 L Rate Blood Pressure 94/68 102/64 103/61 O2 Sat by Pulse 100 100 100 Oximetry O2 Sat by Pulse Oximetry [ Anterior Bilateral Throughout] 11/19/19 11/19/19 11/19/19 22:15 22:30 22:45 Temperature Pulse Rate 100 H 98 H 97 H Respiratory 14 14 14 Rate Blood Pressure 107/61 106/60 96/66 O2 Sat by Pulse 100 100 100 Oximetry O2 Sat by Pulse Oximetry [ Anterior Bilateral Throughout] 11/19/19 11/19/19 11/19/19 23:00 23:15 23:30 Temperature Pulse Rate 98 H 98 H 101 H Respiratory 9 L 14 9 L Rate Blood Pressure 95/62 93/66 107/64 O2 Sat by Pulse 100 100 100 Oximetry O2 Sat by Pulse Oximetry [ Anterior Bilateral Throughout] 11/19/19 11/20/19 11/20/19 23:45 00:00 00:15 Temperature Pulse Rate 107 H 106 H 106 H Respiratory 10 L 14 14 Rate Blood Pressure 105/62 91/65 106/60 O2 Sat by Pulse 100 100 100 Oximetry O2 Sat by Pulse Oximetry [ Anterior Bilateral Throughout] 11/20/19 11/20/19 11/20/19 00:21 00:30 00:45 Temperature Pulse Rate 106 H 106 H 106 H Respiratory 14 14 10 L Rate Blood Pressure 102/47 103/53 99/66 O2 Sat by Pulse 100 100 100 Oximetry O2 Sat by Pulse Oximetry [ Anterior Bilateral Throughout] 11/20/19 11/20/19 11/20/19 01:00 01:15 01:30 Temperature Pulse Rate 108 H 107 H 106 H Respiratory 14 9 L 14 Rate Blood Pressure 115/60 91/64 102/60 O2 Sat by Pulse 100 100 100 Oximetry O2 Sat by Pulse Oximetry [ Anterior Bilateral Throughout] 11/20/19 11/20/19 11/20/19 01:45 02:00 02:10 Temperature 98.7 F Pulse Rate 106 H 105 H 109 H Respiratory 14 14 14 Rate Blood Pressure 106/58 97/64 92/64 O2 Sat by Pulse 100 100 Oximetry O2 Sat by Pulse 100 Oximetry [ Anterior Bilateral Throughout] 11/20/19 11/20/19 11/20/19 02:15 02:30 02:31 Temperature Pulse Rate 109 H 113 H 114 H Respiratory 14 14 Rate Blood Pressure 102/64 93/64 93/64 O2 Sat by Pulse 100 100 Oximetry O2 Sat by Pulse Oximetry [ Anterior Bilateral Throughout] 11/20/19 11/20/19 11/20/19 02:45 03:00 03:15 Temperature Pulse Rate 114 H 113 H 116 H Respiratory 14 14 14 Rate Blood Pressure 83/56 95/45 93/58 O2 Sat by Pulse 100 100 100 Oximetry O2 Sat by Pulse Oximetry [ Anterior Bilateral Throughout] 11/20/19 11/20/19 11/20/19 03:30 03:45 04:00 Temperature Pulse Rate 113 H 113 H 113 H Respiratory 14 14 14 Rate Blood Pressure 86/54 87/53 86/44 O2 Sat by Pulse 100 100 100 Oximetry O2 Sat by Pulse Oximetry [ Anterior Bilateral Throughout] 11/20/19 11/20/19 11/20/19 04:15 04:30 04:40 Temperature Pulse Rate 109 H 110 H 107 H Respiratory 14 14 Rate Blood Pressure 84/53 87/57 95/66 O2 Sat by Pulse 100 100 Oximetry O2 Sat by Pulse Oximetry [ Anterior Bilateral Throughout] 11/20/19 11/20/19 11/20/19 04:45 05:00 05:15 Temperature Pulse Rate 106 H 107 H 103 H Respiratory 14 13 14 Rate Blood Pressure 89/46 93/58 102/58 O2 Sat by Pulse 100 100 100 Oximetry O2 Sat by Pulse Oximetry [ Anterior Bilateral Throughout] 11/20/19 11/20/19 11/20/19 05:20 05:30 05:45 Temperature 98.2 F Pulse Rate 105 H 103 H 106 H Respiratory 14 14 12 Rate Blood Pressure 101/56 89/60 101/59 O2 Sat by Pulse 100 100 Oximetry O2 Sat by Pulse 100 Oximetry [ Anterior Bilateral Throughout] - Lab 11/20/19 05:57 11/20/19 05:57 Most recent lab results ABG pH 7.168 pH Units (7.350-7.450) L* 11/19/19 04:20 ABG pCO2 52.1 mm Hg 11/19/19 04:20 ABG pO2 51.2 mm Hg (80.0-90.0) L 11/19/19 04:20 ABG HCO3 18.5 mmol/L (20.0-26.0) L 11/19/19 04:20 ABG O2 Saturation 76.7 % (95.0-99.0) L 11/19/19 04:20 Calcium 8.0 mg/dL (8.4-10.2) L 11/20/19 05:57 Medications & Allergies - Medications Allergies/Adverse Reactions: Allergies No Known Allergies Allergy (Verified 11/19/19 05:44) Home Medications: Home Medications Medication Instructions Recorded Confirmed Last Taken Type No Known Home Medications [No 11/19/19 11/19/19 Unknown History Reported Home Medications] Active Medications: Generic Name Dose Route Start Last Admin Trade Name Freq PRN Reason Stop Dose Admin Albumin Human 25 gm 11/20/19 03:48 11/20/19 04:23 Alburx 25% (Albumin) IV 25 gm EDGAR PRN Administration Hypotension Enoxaparin Sodium 30 mg 11/20/19 10:00 Enoxaparin SUB-Q QDAY JAVED Fentanyl 50 mcg 11/19/19 11:27 Sublimaze IV Q10MIN PRN ANALGESIA Hydrophilic Ointment 1 applic 11/19/19 04:42 Vaseline Lip Therapy TP Q2HR PRN Dry Lips Midazolam HCl 100 mg/ Sodium 100 mls @ 2 mls/hr 11/19/19 05:00 11/20/19 08:25 Chloride IV 5 mg/hr TITR JAVED 5 mls/hr Titration Protocol 2 MG/HR Fentanyl Citrate 2,000 mcg in 100 mls @ 5.625 mls/hr 11/19/19 12:00 11/20/19 08:22 Fentanyl Drip Premix IV Infused TITR JAVED Titration Protocol 1 MCG/KG/HR Levofloxacin/Dextrose 750 mg in 150 mls @ 100 mls/hr 11/20/19 10:00 Levaquin 750mg/150ml IV Q24HR JAVED Protocol Sodium Bicarbonate 75 meq/ 1,075 mls @ 100 mls/hr 11/19/19 21:00 11/19/19 21:41 Dextrose/Sodium Chloride IV 100 mls/hr DIRECT JAVED Administration Sodium Chloride 100 mls @ 999 mls/hr 11/20/19 03:48 Nacl 0.9% IV EDGAR PRN Hypotension Midazolam HCl 2 mg 11/19/19 04:42 11/19/19 06:00 Versed IV 2 mg Q10MIN PRN Administration Sedation Multi-Ingred Cream/Lotion/Oil/Oint 1 applic 11/19/19 04:42 Artificial Tears Ophth Oint OU Q4HR PRN Dry Eye(s) Sodium Chloride 10 ml 11/19/19 22:00 11/19/19 22:01 Sodium Chloride Flush Syringe 10 Ml IV 10 ml BID JAVED Administration Sodium Chloride 10 ml 11/19/19 12:43 Sodium Chloride Flush Syringe 10 Ml IV PRN PRN LINE FLUSH
--- NOTE | 2019-11-20 08:36 | Procedure Note ---
STAFF SURGEON: Dr. Luis Estevez. PREOPERATIVE DIAGNOSIS: Acute renal failure. POSTOPERATIVE DIAGNOSIS: Acute renal failure. PROCEDURE PERFORMED: Right femoral Vas-Cath insertion. COMPLICATIONS: None. ESTIMATED BLOOD LOSS: None. INDICATIONS FOR PROCEDURE: This is a 39-year-old gentleman who is currently hospitalized after being found down and unresponsive, who has developed worsening acute renal failure associated with hyperkalemia over 8. Therefore, Vascular consultation was obtained for dialysis catheter insertion for emergent dialysis. DESCRIPTION OF PROCEDURE: The right groin was prepped and draped in the usual sterile fashion with ChloraPrep, then proceeded to obtain a percutaneous access of the right common femoral vein using a micropuncture technique under ultrasound guidance, was to obtain access, needle was exchanged for a micropuncture sheath using Seldinger technique. We then proceeded to place a stiff J wire into the inferior vena cava. The micropuncture sheath was removed. The access site was then thoroughly dilated appropriately and then a 30 cm Vas-Cath was then placed over the wire into the IVC. The wire was removed. All 3 lumens ashia blood appropriately, were then flushed with heparinized saline. Appropriate amount of heparin was placed in each port. We then proceeded to suture the catheter in place with a 3-0 nylon and appropriate dressing was placed. The patient tolerated the procedure well and remained in critical condition. JOB# [id number] EARLENE/MIGDALIA
[2019-11-20] MEDS ORDERED: ENOXAPARIN 30 MG/0.3 ML INJ SUB-Q SCH ×2 (10:00)
[2019-11-20] MEDS ORDERED: ENOXAPARIN 40 MG/0.4 ML INJ SUB-Q SCH (10:00)
[2019-11-20] MEDS: D5W IV SCH ×2 (11:03→22:15)
[2019-11-20] MEDS: NACL IV SCH ×2 (11:03→22:15)
[2019-11-20] MEDS: SODIUM BICARBONATE IV SCH ×2 (11:03→22:15)
--- NOTE | 2019-11-20 12:10 | Consultation ---
History of Present Illness Consult date: 11/20/19 Requesting physician: BERE WILLIAMSON History of present illness: The patient is a 39-year-old male presenting with chief complaint of overdose. Per EMS/ER record, the patient was found inside [place] station slumped over on the floor leaning up against the refrigerated beverage containers unresponsive. The patient was administered Narcan 2 mg by EMS and they report the patient began breathing quicker. The patient was administered a second round of Narcan 2 mg and he began to awaken. On admission, patient appeared confused and stated to the ER physician he does not know what happened. Patient admitted to the ER physician of taking "pills" but does not know what they were. Patient denied any other co-ingestants. Patient complained of chest pain which he states he just noticed after arrival to the emergency department. In the ED, the patient was persistently hypoxic in the 70s even when placed on BiPAP with an FiO2 100%. Subsequently the decision to intubate using RSI was made by the ER physician. Upon my evaluation, patient was noted to be intubated and somnolent. Brother and sister in law were at the bedside confirming that patient has had a long history of substance abuse for 20 years. I have been consulted fro critical management. Patient was seen and examined. Vitals, labs, medications, chart and imaging were reviewed. Past History Past Medical History: No medical history Past Surgical History: No surgical history Social history: other (Significant substance/drug abuse.) Family history: no significant family history Medications and Allergies Allergies Allergy/AdvReac Type Severity Reaction Status Date / Time No Known Allergies Allergy Verified 11/19/19 05:44 Home Medications Medication Instructions Recorded Confirmed Last Taken Type No Known Home Medications [No 11/19/19 11/19/19 Unknown History Reported Home Medications] Active Meds: Active Medications Albumin Human (Alburx 25% (Albumin)) 25 gm IV EDGAR PRN PRN Reason: Hypotension Last Admin: 11/20/19 04:23 Dose: 25 gm Documented by: Enoxaparin Sodium (Enoxaparin) 30 mg SUB-Q QDAY JAVED Fentanyl (Sublimaze) 50 mcg IV Q10MIN PRN PRN Reason: ANALGESIA Hydrophilic Ointment (Vaseline Lip Therapy) 1 applic TP Q2HR PRN PRN Reason: Dry Lips Midazolam HCl 100 mg/ Sodium (Chloride) 100 mls @ 2 mls/hr IV TITR JAVED; Protocol Last Titration: 11/20/19 10:15 Dose: 3 mg/hr, 3 mls/hr Documented by: Fentanyl Citrate (Fentanyl Drip Premix) 2,000 mcg in 100 mls @ 5.625 mls/hr IV TITR JAVED; Protocol Last Admin: 11/20/19 08:30 Dose: 3 mcg/kg/hr, 16.874 mls/hr Documented by: Sodium Bicarbonate 75 meq/ (Dextrose/Sodium Chloride) 1,075 mls @ 100 mls/hr IV DIRECT JAVED Last Admin: 11/20/19 11:03 Dose: 100 mls/hr Documented by: Sodium Chloride (Nacl 0.9%) 100 mls @ 999 mls/hr IV EDGAR PRN PRN Reason: Hypotension Levofloxacin/Dextrose (Levaquin 500mg/100ml) 500 mg in 100 mls @ 100 mls/hr IV Q48H JAVED Midazolam HCl (Versed) 2 mg IV Q10MIN PRN PRN Reason: Sedation Last Admin: 11/19/19 06:00 Dose: 2 mg Documented by: Multi-Ingred Cream/Lotion/Oil/Oint (Artificial Tears Ophth Oint) 1 applic OU Q4HR PRN PRN Reason: Dry Eye(s) Sodium Chloride (Sodium Chloride Flush Syringe 10 Ml) 10 ml IV BID JAVED Last Admin: 11/19/19 22:01 Dose: 10 ml Documented by: Sodium Chloride (Sodium Chloride Flush Syringe 10 Ml) 10 ml IV PRN PRN PRN Reason: LINE FLUSH Review of Systems ROS unobtainable: due to mental status Physical Examination Vital signs: Vital Signs Pulse Resp BP Pulse Ox 100 H 41 H 128/82 75 L 11/19/19 03:55 11/19/19 03:55 11/19/19 03:55 11/19/19 03:55 Reviewed General appearance: Present: mild distress (Patient is somnolent and lethargic), well-nourished, other (Patient is orally intubated on mechanical ventilation.) ETT at 24 cm, no patient ventilator-dyssynchrony - EENT Eyes: Present: PERRL ENT: hearing intact, clear oral mucosa - Neck Neck: Present: supple, normal ROM - Respiratory Respiratory effort: normal Respiratory: bilateral: CTA - Cardiovascular Heart Sounds: Present: S1 & S2. Absent: rub, click - Extremities Extremities: pulses symmetrical, No edema Peripheral Pulses: within normal limits - Abdominal General gastrointestinal: Present: soft, non-tender, non-distended, normal bowel sounds Male genitourinary: Present: normal - Integumentary Integumentary: Present: clear, warm, dry. right femoral vascath - Musculoskeletal Musculoskeletal: Unable to assess - Psychiatric Psychiatric: unable to assess, sedated - Neurologic Neurologic: Unable to assess- withdraws all extremities to pain, moves all extremities Results - Laboratory Findings CBC and BMP: 11/20/19 05:57 11/21/19 14:36 ABG POC ABG pH 7.312 (7.35-7.45) L 11/20/19 06:05 ABG pH 7.168 pH Units (7.350-7.450) L* 11/19/19 04:20 POC ABG pCO2 57.9 (35-45) H 11/20/19 06:05 ABG pCO2 52.1 mm Hg 11/19/19 04:20 POC ABG pO2 95 (80-105) 11/20/19 06:05 ABG pO2 51.2 mm Hg (80.0-90.0) L 11/19/19 04:20 POC ABG HCO3 29.3 (22-26 mml/L) 11/20/19 06:05 POC ABG Total CO2 31 (23-27mmol/L) 11/20/19 06:05 POC ABG O2 Sat 96 11/20/19 06:05 ABG O2 Saturation 76.7 % (95.0-99.0) L 11/19/19 04:20 PT/INR, D-dimer PT 15.7 Sec. (12.2-14.9) H 11/19/19 04:21 INR 1.23 (0.87-1.13) H 11/19/19 04:21 Abnormal lab findings: Abnormal Labs 11/19/19 11/19/19 11/19/19 04:20 04:21 04:21 WBC 11.2 H RBC 5.20 H Hgb Hct MCV 81 L MCH 26 L Lymph % (Auto) [place] % (Auto) Lymph # Randall # Seg Neutrophils % 79.0 H Seg Neutrophils # 8.9 H PT 15.7 H INR 1.23 H POC ABG pH ABG pH 7.168 L* POC ABG pCO2 POC ABG pO2 ABG pO2 51.2 L ABG HCO3 18.5 L ABG O2 Saturation 76.7 L ABG Base Excess -10.2 L ABG Hemoglobin 13.5 L Oxyhemoglobin 75.0 L Sodium Potassium Chloride Carbon Dioxide BUN Creatinine Glucose Uric Acid Calcium Total Creatine Kinase Salicylates Acetaminophen 11/19/19 11/19/19 11/19/19 04:21 04:56 04:56 WBC RBC Hgb Hct MCV MCH Lymph % (Auto) [place] % (Auto) Lymph # Randall # Seg Neutrophils % Seg Neutrophils # PT INR POC ABG pH ABG pH POC ABG pCO2 POC ABG pO2 ABG pO2 ABG HCO3 ABG O2 Saturation ABG Base Excess ABG Hemoglobin Oxyhemoglobin Sodium 136 L Potassium 5.5 H Chloride 96.6 L Carbon Dioxide 18 L BUN 21 H Creatinine 2.2 H Glucose 393 H Uric Acid Calcium Total Creatine Kinase 392 H Salicylates < 0.3 L Acetaminophen < 5.0 L 11/19/19 11/19/19 11/19/19 06:29 09:04 12:42 WBC RBC Hgb Hct MCV MCH Lymph % (Auto) [place] % (Auto) Lymph # Randall # Seg Neutrophils % Seg Neutrophils # PT INR POC ABG pH 7.208 L 7.186 L 7.205 L ABG pH POC ABG pCO2 57.1 H 66.6 H 62.8 H POC ABG pO2 59 L 58 L ABG pO2 ABG HCO3 ABG O2 Saturation ABG Base Excess ABG Hemoglobin Oxyhemoglobin Sodium Potassium Chloride Carbon Dioxide BUN Creatinine Glucose Uric Acid Calcium Total Creatine Kinase Salicylates Acetaminophen 11/19/19 11/19/19 11/19/19 12:57 17:59 22:00 WBC RBC Hgb Hct MCV MCH Lymph % (Auto) [place] % (Auto) Lymph # Randall # Seg Neutrophils % Seg Neutrophils # PT INR POC ABG pH 7.204 L 7.180 L ABG pH POC ABG pCO2 66.2 H 68.5 H POC ABG pO2 68 L ABG pO2 ABG HCO3 ABG O2 Saturation ABG Base Excess ABG Hemoglobin Oxyhemoglobin Sodium 135 L Potassium 8.5 H* D Chloride Carbon Dioxide 18 L BUN 40 H Creatinine 3.5 H D Glucose 127 H Uric Acid 10.2 H Calcium 8.0 L Total Creatine Kinase Salicylates Acetaminophen 11/19/19 11/19/19 11/20/19 22:49 Unknown 05:57 WBC 15.1 H RBC Hgb 11.5 L Hct 35.1 L D MCV 80 L MCH 26 L Lymph % (Auto) 5.0 L Randall % (Auto) 9.0 H Lymph # 0.8 L Randall # 1.4 H Seg Neutrophils % 85.7 H Seg Neutrophils # 13.0 H PT INR POC ABG pH ABG pH POC ABG pCO2 POC ABG pO2 ABG pO2 ABG HCO3 ABG O2 Saturation ABG Base Excess ABG Hemoglobin Oxyhemoglobin Sodium Potassium 8.6 H* Chloride Carbon Dioxide BUN Creatinine Glucose Uric Acid Calcium Total Creatine Kinase 396 H Salicylates Acetaminophen 11/20/19 11/20/19 05:57 06:05 WBC RBC Hgb Hct MCV MCH Lymph % (Auto) [place] % (Auto) Lymph # Randall # Seg Neutrophils % Seg Neutrophils # PT INR POC ABG pH 7.312 L ABG pH POC ABG pCO2 57.9 H POC ABG pO2 ABG pO2 ABG HCO3 ABG O2 Saturation ABG Base Excess ABG Hemoglobin Oxyhemoglobin Sodium Potassium Chloride Carbon Dioxide BUN 25 H Creatinine 2.6 H Glucose 120 H Uric Acid Calcium 8.0 L Total Creatine Kinase Salicylates Acetaminophen - Diagnostic Findings Chest x-ray: image reviewed (Bilatral alveolar infiltrates) Assessment and Plan Acute Hypoxemic-Hypercapnic Respiratory Failure on MVS Acute Toxic/Metabolic Encephalopathy-Opiod overdose Drug Overdose Obesity CHRIS-Hyperkalemia s/p HD Leukocytosis Anemia -Emergent HD fro CHRIS and hyperkalemia - continue to wean supplemental oxygen for target O2 sat's > 90% Once FIO2 is down to 50% start weaning PEEP -Adjust minute ventilation for better gas exchange - Daily SAT and SBT assessment for readiness for weaning per protocol - VAP bundle addressed - Lung protective strategies - Bronchodilators with pulmonary hygiene per RT - Accuchecks with glycemic control per SSI (While critically ill target blood glucose of 140-180 mg/dL; avoid hypoglycemia) - Sedation for target RASS 0 to -1 - Avoid benzodiazepines to reduce the possibility of delirium - Empiric antibiotics for CAP/aspiration pneumonia -ABG, CXR in the morning - prn analgesia per CPOT score - Maintenance of sleep-wake cycle, avoid delirium - Enteral nutritional support -Follow up tracheal cultures -Aspiration precautions, HOB >40 -RD consult - G.I. & VTE prophylaxis - PT/OT/ROM exercises - Mobility protocol and off loading for pressure ulcer prevention -Renally dose all medications, avoid nephrotoxins -Substance abuse counselling once he is extubated CONDITION: CRITICAL PROGNOSIS: GUARDED CODE STATUS: FULL CODE Patient is a full code, disease education conducted in the emergency department, patient's brother acknowledges understanding and agreement with care plan, poor prognosis discussed, will admit patient to ICU and treated with aggressive ther apy, The high probability of a clinically significant, sudden or life-threatening deterioration of the respiratory, renal system(s) required my full and direct attention, intervention and personal management. The aggregate critical care time was [45] minutes without overlap. Time includes spent on; [x] Data Review and interpretation [x] Patient assessment and monitoring of vital signs [x] Documentation [x] Medication orders and management
[2019-11-20 15:33] LABS: Bacteria,Urine 1+ /HPF (Negative); Bilirubin,Urine NEG (Negative); Blood,Urine LG (Negative); Color,Urine Yellow (Yellow); Hyaline Casts,Urine 4 /LPF; Mucus,Urine FEW /HPF; Urobilinogen,Urine < 2.0 mg/dL (<2.0)
[2019-11-20 16:00] LABS: Creatinine,Urine 170.7 mg/dL (0.1-20.0)
[2019-11-20 19:10] LABS: Calcium 8.4 mg/dL (8.4-10.2)
--- NOTE | 2019-11-20 21:36 | Progress Note ---
Assessment and Plan - Patient Problems (1) Hyperglycemia Current Visit: Yes Status: Acute Plan to address problem: Hyperglycemia has resolved no evidence of diabetes at this time. (2) Hyperkalemia Current Visit: Yes Status: Acute Plan to address problem: Hyperkalemia corrected after hemodialysis x1. (3) Overdose Current Visit: Yes Status: Acute Plan to address problem: Patient overdose remains intubated. (4) Pneumonia Current Visit: Yes Status: Acute Plan to address problem: Continue antibiotic coverage patient afebrile. Blood cultures no growth so far. (5) Renal insufficiency Current Visit: Yes Status: Acute Plan to address problem: Patient status post hemodialysis follow up in a.m. Renal recommendations. (6) Respiratory failure Current Visit: Yes Status: Acute Plan to address problem: Acute respiratory failure wean as tolerated. Remains intubated this time. Weaning potential affected by pneumonia. History Interval history: Patient 38 years old with long history of substance abuse. Presents with opiate overdose. Patient now intubated and sedated. Patient had episode of attempting to pull tube out and became agitated. Received benzodiazepine patient is comfortable now. Resting comfortably. Mother at bedside all questions and concerns answered to her satisfaction. Explained patient renal function i mproving. Hospitalist Physical - Constitutional Vitals: Temp Pulse Resp BP Pulse Ox 98.6 F 101 H 12 155/83 94 11/20/19 19:27 11/20/19 20:30 11/20/19 19:25 11/20/19 20:30 11/20/19 20:30 General appearance: Present: mild distress (Patient is somnolent and lethargic), well-nourished, other (Patient is orally intubated on mechanical ventilation.) - EENT Eyes: Present: PERRL - Neck Neck: Present: supple, normal ROM - Respiratory Respiratory effort: normal Respiratory: bilateral: CTA, rales (Few rails.) - Cardiovascular Rhythm: regular - Extremities Extremities: no ischemia, pulses intact, pulses symmetrical, No edema, normal temperature, normal color Peripheral Pulses: within normal limits - Abdominal General gastrointestinal: soft, non-tender, tender, normal bowel sounds - Integumentary Integumentary: Present: clear, warm, dry Results - Labs CBC & Chem 7: 11/20/19 05:57 11/21/19 14:36 Labs: Laboratory Last Values WBC 15.1 K/mm3 (4.5-11.0) H 11/20/19 05:57 RBC 4.41 M/mm3 (3.65-5.03) 11/20/19 05:57 Hgb 11.5 gm/dl (11.8-15.2) L 11/20/19 05:57 Hct 35.1 % (35.5-45.6) L D 11/20/19 05:57 MCV 80 fl (84-94) L 11/20/19 05:57 MCH 26 pg (28-32) L 11/20/19 05:57 MCHC 33 % (32-34) 11/20/19 05:57 RDW 14.9 % (13.2-15.2) 11/20/19 05:57 Plt Count 293 K/mm3 (140-440) 11/20/19 05:57 Lymph % (Auto) 5.0 % (13.4-35.0) L 11/20/19 05:57 [place] % (Auto) 9.0 % (0.0-7.3) H 11/20/19 05:57 Eos % (Auto) 0.0 % (0.0-4.3) 11/20/19 05:57 Baso % (Auto) 0.3 % (0.0-1.8) 11/20/19 05:57 Lymph # 0.8 K/mm3 (1.2-5.4) L 11/20/19 05:57 [place] # 1.4 K/mm3 (0.0-0.8) H 11/20/19 05:57 Eos # 0.0 K/mm3 (0.0-0.4) 11/20/19 05:57 Baso # 0.0 K/mm3 (0.0-0.1) 11/20/19 05:57 Seg Neutrophils % 85.7 % (40.0-70.0) H 11/20/19 05:57 Seg Neutrophils # 13.0 K/mm3 (1.8-7.7) H 11/20/19 05:57 PT 15.7 Sec. (12.2-14.9) H 11/19/19 04:21 INR 1.23 (0.87-1.13) H 11/19/19 04:21 POC ABG pH 7.312 (7.35-7.45) L 11/20/19 06:05 ABG pH 7.168 pH Units (7.350-7.450) L* 11/19/19 04:20 POC ABG pCO2 57.9 (35-45) H 11/20/19 06:05 ABG pCO2 52.1 mm Hg 11/19/19 04:20 POC ABG pO2 95 (80-105) 11/20/19 06:05 ABG pO2 51.2 mm Hg (80.0-90.0) L 11/19/19 04:20 POC ABG HCO3 29.3 (22-26 mml/L) 11/20/19 06:05 ABG HCO3 18.5 mmol/L (20.0-26.0) L 11/19/19 04:20 POC ABG Total CO2 31 (23-27mmol/L) 11/20/19 06:05 POC ABG O2 Sat 96 11/20/19 06:05 ABG O2 Saturation 76.7 % (95.0-99.0) L 11/19/19 04:20 ABG O2 Content 14.3 (0.0-44) 11/19/19 04:20 POC ABG Base Excess 3 ((-2) - (+3)mmol/L) 11/20/19 06:05 ABG Base Excess -10.2 mmol/L (-2.0-3.0) L 11/19/19 04:20 ABG Hemoglobin 13.5 gm/dl (14.0-18.0) L 11/19/19 04:20 ABG Carboxyhemoglobin 1.6 % (0.0-5.0) 11/19/19 04:20 ABG Methemoglobin 0.6 % (0.0-1.5) 11/19/19 04:20 Oxyhemoglobin 75.0 % (95.0-99.0) L 11/19/19 04:20 FiO2 60 % 11/20/19 06:05 Sodium 140 mmol/L (137-145) 11/20/19 18:38 Potassium 4.9 mmol/L (3.6-5.0) 11/20/19 18:38 Chloride 102.9 mmol/L (98-107) 01/09/20 18:38 Carbon Dioxide 24 mmol/L (22-30) 11/20/19 18:38 Anion Gap 18 mmol/L 11/20/19 18:38 BUN 24 mg/dL (9-20) H 11/20/19 18:38 Creatinine 1.7 mg/dL (0.8-1.5) H 11/20/19 18:38 Estimated GFR 55 ml/min 11/20/19 18:38 BUN/Creatinine Ratio 14 % 11/20/19 18:38 Glucose 95 mg/dL (75-100) 11/20/19 18:38 Osmolality 300 Mosm/kg 11/19/19 22:00 Uric Acid 10.2 mg/dL (3.5-7.6) H 11/19/19 22:00 Calcium 8.4 mg/dL (8.4-10.2) 11/20/19 18:38 Total Bilirubin < 0.20 mg/dL (0.1-1.2) 11/19/19 04:21 AST 27 units/L (5-40) 11/19/19 04:21 ALT 32 units/L (7-56) 11/19/19 04:21 Alkaline Phosphatase 61 units/L (35-129) 11/19/19 04:21 Total Creatine Kinase 396 units/L (55-170) H 11/19/19 Unknown CK-MB (CK-2) 4.0 ng/mL (0.0-4.0) 11/19/19 04:21 CK-MB (CK-2) Rel Index 1.0 (0-4) 11/19/19 04:21 Troponin T < 0.010 ng/mL (0.00-0.029) 11/19/19 04:21 NT-Pro-B Natriuret Pep 55.89 pg/mL (0-450) 11/19/19 04:21 Total Protein 7.2 g/dL (6.3-8.2) 11/19/19 04:21 Albumin 4.6 g/dL (3.9-5) 11/19/19 04:21 Albumin/Globulin Ratio 1.8 % 11/19/19 04:21 Urine Color Yellow (Yellow) 11/20/19 08:07 Urine Turbidity Slightly-cloudy (Clear) 11/20/19 08:07 Urine pH 5.0 (5.0-7.0) 11/20/19 08:07 Ur Specific [place] 1.013 (1.003-1.030) 11/20/19 08:07 Urine Protein 30 mg/dl mg/dL (Negative) 11/20/19 08:07 Urine Glucose (UA) Neg mg/dL (Negative) 11/20/19 08:07 Urine Ketones Neg mg/dL (Negative) 11/20/19 08:07 Urine Blood Lg (Negative) 11/20/19 08:07 Urine Nitrite Neg (Negative) 11/20/19 08:07 Urine Bilirubin Neg (Negative) 11/20/19 08:07 Urine Urobilinogen < 2.0 mg/dL (<2.0) 11/20/19 08:07 Ur Leukocyte Esterase Neg (Negative) 11/20/19 08:07 Urine WBC (Auto) 9.0 /HPF (0.0-6.0) H 11/20/19 08:07 Urine RBC (Auto) 24.0 /HPF (0.0-6.0) 11/20/19 08:07 U Epithel Cells (Auto) 1.0 /HPF (0-13.0) 11/20/19 08:07 Urine Bacteria (Auto) 1+ /HPF (Negative) 11/20/19 08:07 Hyaline Casts 4 /LPF 11/20/19 08:07 Urine Mucus Few /HPF 11/20/19 08:07 Urine Creatinine 170.7 mg/dL (0.1-20.0) H 11/20/19 08:07 Urine Sodium 17 mmol/L 11/20/19 08:07 Salicylates < 0.3 mg/dL (2.8-20.0) L 11/19/19 04:56 Urine Opiates Screen Presumptive positive 11/19/19 Unknown Urine Methadone Screen Presumptive negative 11/19/19 Unknown Acetaminophen < 5.0 ug/mL (10.0-30.0) L 11/19/19 04:56 Ur Barbiturates Screen Presumptive negative 11/19/19 Unknown Ur Phencyclidine Scrn Presumptive negative 11/19/19 Unknown Ur Amphetamines Screen Presumptive negative 11/19/19 Unknown U Benzodiazepines Scrn Presumptive negative 11/19/19 Unknown Urine Cocaine Screen Presumptive negative 11/19/19 Unknown U Marijuana (THC) Screen Presumptive negative 11/19/19 Unknown Drugs of Abuse Note Disclamer 11/19/19 Unknown Plasma/Serum Alcohol < 0.01 % (0-0.07) 11/19/19 04:21 Hepatitis A IgM Ab Non-reactive (NonReactive) 11/20/19 02:20 Hep Bs Antigen Non-reactive (Negative) 11/20/19 02:20 Hep B Core IgM Ab Non-reactive (NonReactive) 11/20/19 02:20 Hepatitis C Antibody Non-reactive (NonReactive) 11/20/19 02:20 - Imaging and Cardiology Chest x-ray: report reviewed, image reviewed US - abdomen: report reviewed, image reviewed Active Medications - Current Medications Current Medications: Generic Name Dose Route Start Last Admin Trade Name Freq PRN Reason Stop Dose Admin Albumin Human 25 gm 11/20/19 03:48 11/20/19 04:23 Alburx 25% (Albumin) IV 25 gm EDGAR PRN Administration Hypotension Enoxaparin Sodium 30 mg 11/20/19 10:00 11/20/19 12:43 Enoxaparin SUB-Q 30 mg QDAY JAVED Administration Fentanyl 50 mcg 11/19/19 11:27 Sublimaze IV Q10MIN PRN ANALGESIA Hydrophilic Ointment 1 applic 11/19/19 04:42 Vaseline Lip Therapy TP Q2HR PRN Dry Lips Midazolam HCl 100 mg/ Sodium 100 mls @ 2 mls/hr 11/19/19 05:00 11/20/19 17:30 Chloride IV 3 mg/hr TITR JAVED 3 mls/hr Titration Protocol 2 MG/HR Fentanyl Citrate 2,000 mcg in 100 mls @ 5.625 mls/hr 11/19/19 12:00 11/20/19 14:34 Fentanyl Drip Premix IV 2 mcg/kg/hr TITR JAVED 11.249 mls/hr Administration Protocol 1 MCG/KG/HR Sodium Bicarbonate 75 meq/ 1,075 mls @ 100 mls/hr 11/19/19 21:00 11/20/19 11:03 Dextrose/Sodium Chloride IV 100 mls/hr DIRECT JAVED Administration Sodium Chloride 100 mls @ 999 mls/hr 11/20/19 03:48 Nacl 0.9% IV EDGAR PRN Hypotension Levofloxacin/Dextrose 500 mg in 100 mls @ 100 mls/hr 11/22/19 10:00 Levaquin 500mg/100ml IV Q48H JAVED Midazolam HCl 2 mg 11/19/19 04:42 11/19/19 06:00 Versed IV 2 mg Q10MIN PRN Administration Sedation Multi-Ingred Cream/Lotion/Oil/Oint 1 applic 11/19/19 04:42 Artificial Tears Ophth Oint OU Q4HR PRN Dry Eye(s) Sodium Chloride 10 ml 11/19/19 22:00 11/20/19 12:43 Sodium Chloride Flush Syringe 10 Ml IV 10 ml BID JAVED Administration Sodium Chloride 10 ml 11/19/19 12:43 Sodium Chloride Flush Syringe 10 Ml IV PRN PRN LINE FLUSH Nutrition/Malnutrition Assess - Dietary Evaluation Nutrition/Malnutrition Findings: Nutrition Notes Start: 11/19/19 12:57 Freq: Status: Active Protocol: Document 11/20/19 11:53 KS (Rec: 11/20/19 12:14 KS [id number]) Co-Sign 11/20/19 11:53 LM Nutrition Notes Need for Assessment generated from: MD Order Initial or Follow up Assessment Other Pertinent Diagnosis Opiod overdose Current Diet NPO Labs/Tests BUN 25 CR 2.6 BG 120 Pertinent Medications Dextrose w/ NaCl at 100mL/hr Height 6 ft Weight 112.491 kg [place] Body Weight (kg) 80.90 BMI 33.6 Weight Status Obese Subjective/Other Information MD consult to evaluate nutritional intakes. Unable to obtain pt Hx. Pt on vent. Burn Absent Trauma Absent Current % PO Negligible Minimum of two criteria No physical signs of malnutrition #1 Nutrition Diagnosis Inadequate oral intake Etiology pt on vent As Evidenced by Signs and Symptoms NPO status Is patient on ventilator? Yes Is Patient Ambulatory and/or Out of Bed No REE-([facility]-confined to bed) 2495.892 Kcal/Kg value to use for calculation 18 Approximate Energy Requirements Using 2024 kcal/Kg Calculation Used for Recommendations Kcal/kg Additional Notes PRO: >162g (>2g IBW 80.9kg) Fluid: 1mL/kcal Nutrition Intervention Change Diet Order: Recommend TF Nutrition Support: Recommend Vital AF 1.2 at 70mL /hr Free water flush 100mL q4h Kcal 2,016 Protein (gm) 126 Fluid (mL) 1,362 Goal #1 TF start when medically feasible Anticipated Discharge Needs: Unable to determine at this time Follow-Up By: 11/24/19 Additional Comments Follow for possible TF
[2019-11-21] MEDS: fentaNYL DRIP Premix 2,000 MCG/100 ML BAG IV SCH ×2 (01:32→11:09)
[2019-11-21] MEDS: MIDAZOLAM 100 MG in SODIUM CHLORIDE 0.9% 80 ML IV SCH (01:32)
--- NOTE | 2019-11-21 03:53 | XRay Report ---
CHEST 1 VIEW, 11/21/2019 2:00 AM CLINICAL INFORMATION/INDICATION: Respiratory failure COMPARISON: Chest radiograph, 11/20/2019 at 2:29 AM FINDINGS: SUPPORT DEVICES: Endotracheal tube and esophagogastric tube project in similar position. HEART: The cardiac silhouette is normal in size. LUNGS/PLEURA: Parenchymal disease throughout the left lung has not significantly changed. The right l chary remains grossly clear. No pneumothorax is visualized. ADDITIONAL FINDINGS: No additional acute findings. IMPRESSION: 1. Stable appearance of left lung parenchymal disease. Signer Name: Edie Davis MD Signed: 11/21/2019 3:49 AM Workstation Name: [id number]
--- NOTE | 2019-11-21 08:51 | Progress Note ---
Assessment and Plan Acute Hypoxemic Respiratory Failure on MVS Acute Toxic/Metabolic Encephalopathy Hypercapnic Respiratory Failure Drug Overdose Obesity CHRIS Leucocytosis Anemia - discontinued Versed - begin low dose Seroquel for reported agitation during SAT's - reduced set rate to 20/min - continue Daily SAT and SBT assessment as tolerated - repeat ABG at 9pm tonight to assess ventilation / hypercapnia - continue to wean supplemental oxygen for target O2 sat's > 90% acutely - VAP bundle addressed - continue lung protective strategies - continue bronchodilators with pulmonary hygiene per RT - wean per pulmonary driven protocols otherwise - sedation prn for target RASS 0 to -1 - continue accuchecks resumed with glycemic control per SSI (While critically ill target blood glucose of 140-180 mg/dL; avoid hypoglycemia) - complete empiric AB's course (On Levaquin) - prn analgesia per CPOT score - Maintenance of sleep-wake cycle, avoid delirium - continue enteral nutritional support at goal rate as tolerated - G.I. & VTE prophylaxis - PT/OT/ROM exercises - continue mobility protocols for pressure ulcer prophylaxis - Monitor hemodynamics closely - continue other care per attending / other toy consultant's - discharge planning ongoing concurrently .... re-evaluate in am & prn CONDITION: CRITICAL PROGNOSIS: GUARDED CODE STATUS: FULL CODE The high probability of a clinically significant, sudden or life-threatening deterioration of the [respiratory, cardiovascular & neurologic] system(s) required my full and direct attention, intervention and personal management. The aggregate critical care time was [35] minutes without overlap. Time includes spent on; [x] Data Review and interpretation [x] Patient assessment and monitoring of vital signs [x] Documentation [x] Medication orders and management Subjective Date of service: 11/21/19 Principal diagnosis: Acute Respiratory Failure on MVS; Acute Toxic/Metabolic Encephalopathy Interval history: Patient is seen today for: Acute Respiratory Failure on MVS; Drug OD; Acute Toxic/Metabolic Encephalopathy; CHRIS Seen and examined at bedside; 24hour events reviewed; nursing and respiratory care staff consulted; no adverse overnight events reported to me; laying in bed; sedated; ABG with worsening hypercapnia; still delirious during SAT; no emesis or overt aspiration; No seizures Objective Vital Signs - 12hr 11/20/19 11/20/19 11/20/19 21:00 21:15 21:30 Temperature Pulse Rate 100 H 99 H 99 H Respiratory 11 L 13 17 Rate Blood Pressure 146/87 143/87 152/86 O2 Sat by Pulse 95 94 94 Oximetry 11/20/19 11/20/19 11/20/19 21:45 22:00 22:15 Temperature Pulse Rate 98 H 99 H 101 H Respiratory 28 H 13 12 Rate Blood Pressure 144/80 149/83 152/84 O2 Sat by Pulse 95 94 95 Oximetry 11/20/19 11/20/19 11/20/19 22:30 22:45 23:00 Temperature Pulse Rate 100 H 97 H 97 H Respiratory 12 11 L 12 Rate Blood Pressure 137/79 141/81 136/81 O2 Sat by Pulse 95 96 95 Oximetry 11/20/19 11/20/19 11/20/19 23:15 23:30 23:35 Temperature Pulse Rate 99 H 102 H 102 H Respiratory 12 12 12 Rate Blood Pressure 140/84 152/83 O2 Sat by Pulse 96 95 93 Oximetry 11/20/19 11/20/19 11/21/19 23:45 23:48 00:00 Temperature Pulse Rate 101 H 102 H 99 H Respiratory 13 12 11 L Rate Blood Pressure 137/78 152/83 139/82 O2 Sat by Pulse 95 95 94 Oximetry 11/21/19 11/21/19 11/21/19 00:05 00:15 00:27 Temperature 100.0 F H Pulse Rate 96 H 96 H Respiratory 12 Rate Blood Pressure 149/74 149/74 O2 Sat by Pulse 97 97 Oximetry 11/21/19 11/21/19 11/21/19 00:30 00:45 01:00 Temperature Pulse Rate 96 H 97 H 97 H Respiratory 29 H 17 16 Rate Blood Pressure 140/75 142/81 131/77 O2 Sat by Pulse 97 97 97 Oximetry 11/21/19 11/21/19 11/21/19 01:15 01:30 01:45 Temperature Pulse Rate 97 H 95 H 96 H Respiratory 17 10 L 12 Rate Blood Pressure 135/77 134/75 136/77 O2 Sat by Pulse 97 97 97 Oximetry 11/21/19 11/21/19 11/21/19 02:00 02:15 02:31 Temperature Pulse Rate 93 H 96 H Respiratory 15 13 Rate Blood Pressure 146/78 134/73 146/78 O2 Sat by Pulse 96 95 95 Oximetry 11/21/19 11/21/19 11/21/19 02:45 02:50 03:00 Temperature Pulse Rate 101 H 101 H 92 H Respiratory 14 12 12 Rate Blood Pressure 146/78 136/75 O2 Sat by Pulse 95 93 96 Oximetry 11/21/19 11/21/19 11/21/19 03:15 03:30 03:45 Temperature Pulse Rate 95 H 90 89 Respiratory 12 12 12 Rate Blood Pressure 137/77 136/73 143/77 O2 Sat by Pulse 97 97 96 Oximetry 11/21/19 11/21/19 11/21/19 03:47 04:00 04:10 Temperature 100.7 F H Pulse Rate 91 H 89 Respiratory 12 Rate Blood Pressure 134/78 136/73 O2 Sat by Pulse 96 89 Oximetry 11/21/19 11/21/19 11/21/19 04:15 04:30 04:45 Temperature Pulse Rate 90 90 89 Respiratory 12 12 12 Rate Blood Pressure 136/73 130/75 135/74 O2 Sat by Pulse 95 95 96 Oximetry 11/21/19 11/21/19 11/21/19 04:50 05:00 05:15 Temperature 99.4 F Pulse Rate 91 H 88 Respiratory 12 18 Rate Blood Pressure 135/74 124/73 O2 Sat by Pulse 96 97 Oximetry 11/21/19 11/21/19 11/21/19 05:30 05:40 05:45 Temperature Pulse Rate 81 81 79 Respiratory 18 18 Rate Blood Pressure 141/79 129/71 O2 Sat by Pulse 98 98 Oximetry 11/21/19 11/21/19 11/21/19 06:00 06:15 06:30 Temperature Pulse Rate 79 81 77 Respiratory 18 18 18 Rate Blood Pressure 133/74 136/79 143/80 O2 Sat by Pulse 99 99 100 Oximetry 11/21/19 11/21/19 11/21/19 06:45 07:00 07:15 Temperature Pulse Rate 76 76 75 Respiratory 18 18 18 Rate Blood Pressure 136/83 141/83 136/82 O2 Sat by Pulse 100 100 100 Oximetry 11/21/19 11/21/19 11/21/19 07:30 07:44 07:45 Temperature 103.0 F H Pulse Rate 74 74 Respiratory 18 18 Rate Blood Pressure 137/82 142/82 O2 Sat by Pulse 100 100 Oximetry 11/21/19 11/21/19 08:00 08:28 Temperature Pulse Rate 75 83 Respiratory 18 Rate Blood Pressure 141/83 141/81 O2 Sat by Pulse 100 95 Oximetry Constitutional: lethargic, other (young obese AAM, normocephalic riding the set rate on MVS at rest) Eyes: non-icteric ENT: oropharynx moist, other (ETT 24 cm Alejandra) Neck: supple, no lymphadenopathy, no JVD, other (large neck circumference) Effort: normal Ascultation: Bilateral: diminished breath sounds, rhonchi Percussion: Bilateral: not dull Cardiovascular: regular rate and rhythm Gastrointestinal: normoactive bowel sounds, soft, non-tender, non-distended Integumentary: normal Extremities: no cyanosis, no edema, pulses normal, no ischemia or petechiae Neurologic: non-focal exam (grossly), pupils equal and round, motor strength normal and Psychiatric: other (unable to assess re: AMS) CBC and BMP: 11/20/19 05:57 11/21/19 14:36 ABG, PT/INR, D-dimer: ABG POC ABG pH 7.312 (7.35-7.45) L 11/20/19 06:05 ABG pH 7.168 pH Units (7.350-7.450) L* 11/19/19 04:20 POC ABG pCO2 57.9 (35-45) H 11/20/19 06:05 ABG pCO2 52.1 mm Hg 11/19/19 04:20 POC ABG pO2 95 (80-105) 11/20/19 06:05 ABG pO2 51.2 mm Hg (80.0-90.0) L 11/19/19 04:20 POC ABG HCO3 29.3 (22-26 mml/L) 11/20/19 06:05 POC ABG Total CO2 31 (23-27mmol/L) 11/20/19 06:05 POC ABG O2 Sat 96 11/20/19 06:05 ABG O2 Saturation 76.7 % (95.0-99.0) L 11/19/19 04:20 PT/INR, D-dimer PT 15.7 Sec. (12.2-14.9) H 11/19/19 04:21 INR 1.23 (0.87-1.13) H 11/19/19 04:21 Abnormal lab findings: Abnormal Labs 11/19/19 11/19/19 11/19/19 04:20 04:21 04:21 WBC 11.2 H RBC 5.20 H Hgb Hct MCV 81 L MCH 26 L Lymph % (Auto) Barber % (Auto) Lymph # Barber # Seg Neutrophils % 79.0 H Seg Neutrophils # 8.9 H PT 15.7 H INR 1.23 H POC ABG pH ABG pH 7.168 L* POC ABG pCO2 POC ABG pO2 ABG pO2 51.2 L ABG HCO3 18.5 L ABG O2 Saturation 76.7 L ABG Base Excess -10.2 L ABG Hemoglobin 13.5 L Oxyhemoglobin 75.0 L Sodium Potassium Chloride Carbon Dioxide BUN Creatinine Glucose Uric Acid Calcium Total Creatine Kinase Urine WBC (Auto) Urine Creatinine Salicylates Acetaminophen 11/19/19 11/19/19 11/19/19 04:21 04:56 04:56 WBC RBC Hgb Hct MCV MCH Lymph % (Auto) Barber % (Auto) Lymph # Barber # Seg Neutrophils % Seg Neutrophils # PT INR POC ABG pH ABG pH POC ABG pCO2 POC ABG pO2 ABG pO2 ABG HCO3 ABG O2 Saturation ABG Base Excess ABG Hemoglobin Oxyhemoglobin Sodium 136 L Potassium 5.5 H Chloride 96.6 L Carbon Dioxide 18 L BUN 21 H Creatinine 2.2 H Glucose 393 H Uric Acid Calcium Total Creatine Kinase 392 H Urine WBC (Auto) Urine Creatinine Salicylates < 0.3 L Acetaminophen < 5.0 L 11/19/19 11/19/19 11/19/19 06:29 09:04 12:42 WBC RBC Hgb Hct MCV MCH Lymph % (Auto) Barber % (Auto) Lymph # Barber # Seg Neutrophils % Seg Neutrophils # PT INR POC ABG pH 7.208 L 7.186 L 7.205 L ABG pH POC ABG pCO2 57.1 H 66.6 H 62.8 H POC ABG pO2 59 L 58 L ABG pO2 ABG HCO3 ABG O2 Saturation ABG Base Excess ABG Hemoglobin Oxyhemoglobin Sodium Potassium Chloride Carbon Dioxide BUN Creatinine Glucose Uric Acid Calcium Total Creatine Kinase Urine WBC (Auto) Urine Creatinine Salicylates Acetaminophen 11/19/19 11/19/19 11/19/19 12:57 17:59 22:00 WBC RBC Hgb Hct MCV MCH Lymph % (Auto) Barber % (Auto) Lymph # Barber # Seg Neutrophils % Seg Neutrophils # PT INR POC ABG pH 7.204 L 7.180 L ABG pH POC ABG pCO2 66.2 H 68.5 H POC ABG pO2 68 L ABG pO2 ABG HCO3 ABG O2 Saturation ABG Base Excess ABG Hemoglobin Oxyhemoglobin Sodium 135 L Potassium 8.5 H* D Chloride Carbon Dioxide 18 L BUN 40 H Creatinine 3.5 H D Glucose 127 H Uric Acid 10.2 H Calcium 8.0 L Total Creatine Kinase Urine WBC (Auto) Urine Creatinine Salicylates Acetaminophen 11/19/19 11/19/19 11/20/19 22:49 Unknown 05:57 WBC 15.1 H RBC Hgb 11.5 L Hct 35.1 L D MCV 80 L MCH 26 L Lymph % (Auto) 5.0 L Barber % (Auto) 9.0 H Lymph # 0.8 L Barber # 1.4 H Seg Neutrophils % 85.7 H Seg Neutrophils # 13.0 H PT INR POC ABG pH ABG pH POC ABG pCO2 POC ABG pO2 ABG pO2 ABG HCO3 ABG O2 Saturation ABG Base Excess ABG Hemoglobin Oxyhemoglobin Sodium Potassium 8.6 H* Chloride Carbon Dioxide BUN Creatinine Glucose Uric Acid Calcium Total Creatine Kinase 396 H Urine WBC (Auto) Urine Creatinine Salicylates Acetaminophen 11/20/19 11/20/19 11/20/19 05:57 06:05 08:07 WBC RBC Hgb Hct MCV MCH Lymph % (Auto) Barber % (Auto) Lymph # Barber # Seg Neutrophils % Seg Neutrophils # PT INR POC ABG pH 7.312 L ABG pH POC ABG pCO2 57.9 H POC ABG pO2 ABG pO2 ABG HCO3 ABG O2 Saturation ABG Base Excess ABG Hemoglobin Oxyhemoglobin Sodium Potassium Chloride Carbon Dioxide BUN 25 H Creatinine 2.6 H Glucose 120 H Uric Acid Calcium 8.0 L Total Creatine Kinase Urine WBC (Auto) 9.0 H Urine Creatinine Salicylates Acetaminophen 11/20/19 11/20/19 08:07 18:38 WBC RBC Hgb Hct MCV MCH Lymph % (Auto) Barber % (Auto) Lymph # Barber # Seg Neutrophils % Seg Neutrophils # PT INR POC ABG pH ABG pH POC ABG pCO2 POC ABG pO2 ABG pO2 ABG HCO3 ABG O2 Saturation ABG Base Excess ABG Hemoglobin Oxyhemoglobin Sodium Potassium Chloride Carbon Dioxide BUN 24 H Creatinine 1.7 H Glucose Uric Acid Calcium Total Creatine Kinase Urine WBC (Auto) Urine Creatinine 170.7 H Salicylates Acetaminophen Chest x-ray: image reviewed (left lung pneumonia) Allied health notes reviewed: nursing
[2019-11-21] MEDS ORDERED: QUEtiapine 100 MG TAB PO SCH (10:00)
[2019-11-21] MEDS: FAMOTIDINE 20 MG/2 ML INJ IV SCH ×2 (10:04→23:23)
[2019-11-21] MEDS: D5W IV SCH ×2 (10:04→22:17)
[2019-11-21] MEDS: NACL IV SCH ×2 (10:04→22:17)
[2019-11-21] MEDS: ENOXAPARIN 40 MG/0.4 ML INJ SUB-Q SCH (10:04)
[2019-11-21] MEDS: SODIUM BICARBONATE IV SCH ×2 (10:04→22:17)
[2019-11-21] MEDS ORDERED: SIMPLE SYRUP 15 ML FEEDTUBE PRN ×2 (11:31)
[2019-11-21] MEDS ORDERED: LIPASE 10,500/PROTEASE 25,000/AMYLASE 43,750 (UNITS) DR CAP FEEDTUBE PRN (11:31)
[2019-11-21] MEDS ORDERED: SODIUM BICARBONATE 325 MG TAB FEEDTUBE PRN (11:31)
--- NOTE | 2019-11-21 12:08 | Progress Note ---
Subjective Interval history: Patient was seen today for follow-up on multiple renal related issues required one dialysis treatment creatinine stable yesterday at 1.7 patient nonoliguric Interdisciplinary notes were also reviewed Vitals intake output medications were reviewed Past medical history: Reviewed Family, social history: Reviewed Allergies: Reviewed Physical examination General: No acute distress Vitals: Reviewed HEENT: Oral mucosa moist no icterus Neck: Supple no thyromegaly nodular mass or JVD Chest: Clear to auscultation anteriorly Heart: Regular rate and rhythm S1-S2 heard no S3-S4 Abdomen: Soft nontender no suprapubic masses no organomegaly Extremity: Dry skin less than 1+ edema Psych: No evidence of any agitation and aggression noted Derm: No petechial rash Assessment and plan: Acute kidney injury requiring replacement therapy in the ICU setting now Acute renal failure: Patient required one dialysis treatment due to severe hyperkalemia, his urine output has markedly improved his electrolytes have been stable now I do not believe that he needs any further dialysis creatinine was 1.7 as of yesterday Will need a follow-up labs Depending on the lab results his Vas-Cath can be removed, he can also be taken off bicarbonate infusion Will order for follow-up labs, Likely he has had no acute ischemic tubular necrosis moderately severe requiring dialysis at least 1 time but patient is young and has been recovering from renal standpoint He has had difficulty oxygenating which also worsened his renal function Decision for removing dialysis catheter as well as bicarbonate infusion will depend on patient's today's lab will order BMP stat today smolar gap was normal Monitor for any meaningful recovery of renal function at this time patient will continue with hemodialysis likely 3-4 times per week depending on his metabolic control Opiate overdose, currently intubated respiratory failure, having issues with oxygenation, ? Lung disease? Interstitial edema ? Inflammatory, we'll need input from pulmonary medicine in the meantime he will need to continue with antibiotic therapy renal prognosis remains guarded We'll continue to follow and make recommendation from renal standpoint Objective - Vital Signs Vital signs: Vital Signs - 12hr 11/21/19 11/21/19 11/21/19 00:15 00:27 00:30 Temperature 100.0 F H Pulse Rate 96 H 96 H Respiratory 12 29 H Rate Blood Pressure 149/74 140/75 O2 Sat by Pulse 97 97 Oximetry 11/21/19 11/21/19 11/21/19 00:45 01:00 01:15 Temperature Pulse Rate 97 H 97 H 97 H Respiratory 17 16 17 Rate Blood Pressure 142/81 131/77 135/77 O2 Sat by Pulse 97 97 97 Oximetry 11/21/19 11/21/19 11/21/19 01:30 01:45 02:00 Temperature Pulse Rate 95 H 96 H 93 H Respiratory 10 L 12 15 Rate Blood Pressure 134/75 136/77 146/78 O2 Sat by Pulse 97 97 96 Oximetry 11/21/19 11/21/19 11/21/19 02:15 02:31 02:45 Temperature Pulse Rate 96 H 101 H Respiratory 13 14 Rate Blood Pressure 134/73 146/78 146/78 O2 Sat by Pulse 95 95 95 Oximetry 11/21/19 11/21/19 11/21/19 02:50 03:00 03:15 Temperature Pulse Rate 101 H 92 H 95 H Respiratory 12 12 12 Rate Blood Pressure 136/75 137/77 O2 Sat by Pulse 93 96 97 Oximetry 11/21/19 11/21/19 11/21/19 03:30 03:45 03:47 Temperature 100.7 F H Pulse Rate 90 89 Respiratory 12 12 Rate Blood Pressure 136/73 143/77 O2 Sat by Pulse 97 96 Oximetry 11/21/19 11/21/19 11/21/19 04:00 04:10 04:15 Temperature Pulse Rate 91 H 89 90 Respiratory 12 12 Rate Blood Pressure 134/78 136/73 136/73 O2 Sat by Pulse 96 89 95 Oximetry 11/21/19 11/21/19 11/21/19 04:30 04:45 04:50 Temperature 99.4 F Pulse Rate 90 89 Respiratory 12 12 Rate Blood Pressure 130/75 135/74 O2 Sat by Pulse 95 96 Oximetry 11/21/19 11/21/19 11/21/19 05:00 05:15 05:30 Temperature Pulse Rate 91 H 88 81 Respiratory 12 18 18 Rate Blood Pressure 135/74 124/73 141/79 O2 Sat by Pulse 96 97 98 Oximetry 11/21/19 11/21/19 11/21/19 05:40 05:45 06:00 Temperature Pulse Rate 81 79 79 Respiratory 18 18 Rate Blood Pressure 129/71 133/74 O2 Sat by Pulse 98 99 Oximetry 11/21/19 11/21/19 11/21/19 06:15 06:30 06:45 Temperature Pulse Rate 81 77 76 Respiratory 18 18 18 Rate Blood Pressure 136/79 143/80 136/83 O2 Sat by Pulse 99 100 100 Oximetry 11/21/19 11/21/19 11/21/19 07:00 07:15 07:30 Temperature Pulse Rate 76 75 74 Respiratory 18 18 18 Rate Blood Pressure 141/83 136/82 137/82 O2 Sat by Pulse 100 100 100 Oximetry 11/21/19 11/21/19 11/21/19 07:44 07:45 08:00 Temperature 100.3 F H Pulse Rate 74 75 Respiratory 18 18 Rate Blood Pressure 142/82 141/83 O2 Sat by Pulse 100 100 Oximetry 11/21/19 08:28 Temperature Pulse Rate 83 Respiratory Rate Blood Pressure 141/81 O2 Sat by Pulse 95 Oximetry - Lab 11/20/19 05:57 11/20/19 18:38 Most recent lab results ABG pH 7.168 pH Units (7.350-7.450) L* 11/19/19 04:20 ABG pCO2 52.1 mm Hg 11/19/19 04:20 ABG pO2 51.2 mm Hg (80.0-90.0) L 11/19/19 04:20 ABG HCO3 18.5 mmol/L (20.0-26.0) L 11/19/19 04:20 ABG O2 Saturation 76.7 % (95.0-99.0) L 11/19/19 04:20 Calcium 8.4 mg/dL (8.4-10.2) 11/20/19 18:38 Urine Creatinine 170.7 mg/dL (0.1-20.0) H 11/20/19 08:07 Urine Sodium 17 mmol/L 11/20/19 08:07 Medications & Allergies - Medications Allergies/Adverse Reactions: Allergies No Known Allergies Allergy (Verified 11/19/19 05:44) Home Medications: Home Medications Medication Instructions Recorded Confirmed Last Taken Type No Known Home Medications [No 11/19/19 11/19/19 Unknown History Reported Home Medications] Active Medications: Generic Name Dose Route Start Last Admin Trade Name Freq PRN Reason Stop Dose Admin Albumin Human 25 gm 11/20/19 03:48 11/20/19 04:23 Alburx 25% (Albumin) IV 25 gm EDGAR PRN Administration Hypotension Lipase/Protease/Amylase 1 each 11/21/19 11:[address] 10,500 Unit FEEDTUBE PRN PRN For Clogged Feeding Tube Enoxaparin Sodium 40 mg 11/21/19 10:00 11/21/19 10:04 Enoxaparin SUB-Q 40 mg QDAY@1000 JAVED Administration Famotidine 20 mg 11/21/19 10:00 11/21/19 10:04 Pepcid IV 20 mg BID JAVED Administration Fentanyl 50 mcg 11/19/19 11:27 Sublimaze IV Q10MIN PRN ANALGESIA Hydrophilic Ointment 1 applic 11/19/19 04:42 Vaseline Lip Therapy TP Q2HR PRN Dry Lips Fentanyl Citrate 2,000 mcg in 100 mls @ 5.625 mls/hr 11/19/19 12:00 11/21/19 11:09 Fentanyl Drip Premix IV 2 mcg/kg/hr TITR JAVED 11.249 mls/hr Administration Protocol 1 MCG/KG/HR Sodium Bicarbonate 75 meq/ 1,075 mls @ 100 mls/hr 11/19/19 21:00 11/21/19 10:04 Dextrose/Sodium Chloride IV 100 mls/hr DIRECT JAVED Administration Sodium Chloride 100 mls @ 999 mls/hr 11/20/19 03:48 Nacl 0.9% IV EDGAR PRN Hypotension Levofloxacin/Dextrose 500 mg in 100 mls @ 100 mls/hr 11/22/19 10:00 Levaquin 500mg/100ml IV 11/25/19 10:59 Q24HR JAVED Multi-Ingred Cream/Lotion/Oil/Oint 1 applic 11/19/19 04:42 Artificial Tears Ophth Oint OU Q4HR PRN Dry Eye(s) Quetiapine Fumarate 100 mg 11/21/19 10:00 11/21/19 10:17 Seroquel PO 100 mg BID JAVED Administration Simple Syrup 15 ml 11/21/19 11:31 Simple Syrup FEEDTUBE PRN PRN Hypoglycemia Simple Syrup 30 ml 11/21/19 11:31 Simple Syrup FEEDTUBE PRN PRN Hypoglycemia Sodium Bicarbonate 325 mg 11/21/19 11:31 Sodium Bicarbonate FEEDTUBE PRN PRN For Clogged Feeding Tube Sodium Chloride 10 ml 11/19/19 22:00 11/21/19 10:18 Sodium Chloride Flush Syringe 10 Ml IV 10 ml BID JAVED Administration Sodium Chloride 10 ml 11/19/19 12:43 Sodium Chloride Flush Syringe 10 Ml IV PRN PRN LINE FLUSH
[2019-11-21 15:47] LABS: BUN/Creatinine Ratio 14; Blood Urea Nitrogen 18 mg/dL (9-20); Calcium 8.9 mg/dL (8.4-10.2); Hemolysis Index 0
[2019-11-21] MEDS ORDERED: NEOMY 3.5 MG/BACIT 400 UNITS/POLY B 5000 UNITS/GM OINT PACKET TP ONE (17:03)
[2019-11-21] MEDS ORDERED: PROPOFOL 0 MG/0 ML BOTTLE IV ONE (20:27)
[2019-11-21] MEDS ORDERED: HALOPERIDOL LACTATE 5 MG/1 ML INJ ONE (20:30)
[2019-11-21] MEDS ORDERED: HALOPERIDOL LACTATE 5 MG/1 ML INJ IM PRN (20:30)
[2019-11-21] MEDS ORDERED: HALOPERIDOL LACTATE 5 MG/1 ML INJ IV PRN (21:18)
[2019-11-21] MEDS ORDERED: HALOPERIDOL LACTATE 5 MG/1 ML INJ IM ONE (22:00)
--- NOTE | 2019-11-21 22:04 | Progress Note ---
Assessment and Plan - Patient Problems (1) Hyperglycemia Current Visit: Yes Status: Acute Plan to address problem: Patient has optimal control of blood glucose. No new changes in management no medicines required at this time. (2) Hyperkalemia Current Visit: Yes Status: Acute Plan to address problem: Patient status post hemodialysis x1. Follow-up labs much improved. Potassium now 4.8. (3) Overdose Current Visit: Yes Status: Acute Plan to address problem: Patient overdose remains intubated. (4) Pneumonia Current Visit: Yes Status: Acute Plan to address problem: Patient with left lower lobe pneumonia. Responded to Levaquin well. Patient fever curve is coming down. White count is downtrending. Should assist in getting off the ventilator. (5) Renal insufficiency Current Visit: Yes Status: Acute Plan to address problem: Improved after 1 dialysis. Patient increased urine output potassium is better. Creatinine is improved. Will most likely not require further dialysis. (6) Respiratory failure Current Visit: Yes Status: Acute Plan to address problem: Continue to wean via pulmonology recommendations. Made more difficult by pneumonia and unresponsiveness. History Interval history: Patient remains intubated this a.m. Spoke to mother at bedside. All concerns and questions answered to satisfaction. Hospitalist Physical - Constitutional Vitals: Temp Pulse Resp BP Pulse Ox 99.1 F 93 H 21 209/133 94 11/21/19 20:00 11/21/19 21:30 11/21/19 21:30 11/21/19 21:30 11/21/19 21:30 General appearance: Present: mild distress (Patient is somnolent and lethargic), well-nourished, other (Patient is orally intubated on mechanical ventilation.) - EENT ENT: other (Has been responsive. No bleeding from the nose or mouth.) - Respiratory Respiratory: bilateral: CTA, diminished - Cardiovascular Rhythm: regular Heart Sounds: Present: S1 & S2 - Extremities Extremities: no ischemia, pulses intact, pulses symmetrical, No edema, normal temperature Peripheral Pulses: within normal limits - Abdominal General gastrointestinal: soft, non-tender, non-distended, normal bowel sounds - Integumentary Integumentary: Present: clear, warm, dry Results - Labs CBC & Chem 7: 11/20/19 05:57 11/21/19 14:36 Labs: Laboratory Last Values WBC 15.1 K/mm3 (4.5-11.0) H 11/20/19 05:57 RBC 4.41 M/mm3 (3.65-5.03) 11/20/19 05:57 Hgb 11.5 gm/dl (11.8-15.2) L 11/20/19 05:57 Hct 35.1 % (35.5-45.6) L D 11/20/19 05:57 MCV 80 fl (84-94) L 11/20/19 05:57 MCH 26 pg (28-32) L 11/20/19 05:57 MCHC 33 % (32-34) 11/20/19 05:57 RDW 14.9 % (13.2-15.2) 11/20/19 05:57 Plt Count 293 K/mm3 (140-440) 11/20/19 05:57 Lymph % (Auto) 5.0 % (13.4-35.0) L 11/20/19 05:57 [place] % (Auto) 9.0 % (0.0-7.3) H 11/20/19 05:57 Eos % (Auto) 0.0 % (0.0-4.3) 11/20/19 05:57 Baso % (Auto) 0.3 % (0.0-1.8) 11/20/19 05:57 Lymph # 0.8 K/mm3 (1.2-5.4) L 11/20/19 05:57 [place] # 1.4 K/mm3 (0.0-0.8) H 11/20/19 05:57 Eos # 0.0 K/mm3 (0.0-0.4) 11/20/19 05:57 Baso # 0.0 K/mm3 (0.0-0.1) 11/20/19 05:57 Seg Neutrophils % 85.7 % (40.0-70.0) H 11/20/19 05:57 Seg Neutrophils # 13.0 K/mm3 (1.8-7.7) H 11/20/19 05:57 PT 15.7 Sec. (12.2-14.9) H 11/19/19 04:21 INR 1.23 (0.87-1.13) H 11/19/19 04:21 POC ABG pH 7.321 (7.35-7.45) L 11/21/19 20:45 ABG pH 7.168 pH Units (7.350-7.450) L* 11/19/19 04:20 POC ABG pCO2 60.5 (35-45) H 11/21/19 20:45 ABG pCO2 52.1 mm Hg 11/19/19 04:20 POC ABG pO2 74 (80-105) L 11/21/19 20:45 ABG pO2 51.2 mm Hg (80.0-90.0) L 11/19/19 04:20 POC ABG HCO3 31.2 (22-26 mml/L) 11/21/19 20:45 ABG HCO3 18.5 mmol/L (20.0-26.0) L 11/19/19 04:20 POC ABG Total CO2 33 (23-27mmol/L) 11/21/19 20:45 POC ABG O2 Sat 93 11/21/19 20:45 ABG O2 Saturation 76.7 % (95.0-99.0) L 11/19/19 04:20 ABG O2 Content 14.3 (0.0-44) 11/19/19 04:20 POC ABG Base Excess 5 ((-2) - (+3)mmol/L) 11/21/19 20:45 ABG Base Excess -10.2 mmol/L (-2.0-3.0) L 11/19/19 04:20 ABG Hemoglobin 13.5 gm/dl (14.0-18.0) L 11/19/19 04:20 ABG Carboxyhemoglobin 1.6 % (0.0-5.0) 11/19/19 04:20 ABG Methemoglobin 0.6 % (0.0-1.5) 11/19/19 04:20 Oxyhemoglobin 75.0 % (95.0-99.0) L 11/19/19 04:20 FiO2 100 % 11/21/19 20:45 Sodium 146 mmol/L (137-145) H 11/21/19 14:36 Potassium 4.3 mmol/L (3.6-5.0) 11/21/19 14:36 Chloride 107.3 mmol/L (98-107) H 11/21/19 14:36 Carbon Dioxide 29 mmol/L (22-30) 11/21/19 14:36 Anion Gap 14 mmol/L 11/21/19 14:36 BUN 18 mg/dL (9-20) 11/21/19 14:36 Creatinine 1.3 mg/dL (0.8-1.5) 11/21/19 14:36 Estimated GFR > 60 ml/min 11/21/19 14:36 BUN/Creatinine Ratio 14 % 11/21/19 14:36 Glucose 88 mg/dL (75-100) 11/21/19 14:36 Osmolality 300 Mosm/kg 11/19/19 22:00 Uric Acid 10.2 mg/dL (3.5-7.6) H 11/19/19 22:00 Calcium 8.9 mg/dL (8.4-10.2) 11/21/19 14:36 Total Bilirubin < 0.20 mg/dL (0.1-1.2) 11/19/19 04:21 AST 27 units/L (5-40) 11/19/19 04:21 ALT 32 units/L (7-56) 11/19/19 04:21 Alkaline Phosphatase 61 units/L (35-129) 11/19/19 04:21 Total Creatine Kinase 396 units/L (55-170) H 11/19/19 Unknown CK-MB (CK-2) 4.0 ng/mL (0.0-4.0) 11/19/19 04:21 CK-MB (CK-2) Rel Index 1.0 (0-4) 11/19/19 04:21 Troponin T < 0.010 ng/mL (0.00-0.029) 11/19/19 04:21 NT-Pro-B Natriuret Pep 55.89 pg/mL (0-450) 11/19/19 04:21 Total Protein 7.2 g/dL (6.3-8.2) 11/19/19 04:21 Albumin 4.6 g/dL (3.9-5) 11/19/19 04:21 Albumin/Globulin Ratio 1.8 % 11/19/19 04:21 Urine Color Yellow (Yellow) 11/20/19 08:07 Urine Turbidity Slightly-cloudy (Clear) 11/20/19 08:07 Urine pH 5.0 (5.0-7.0) 11/20/19 08:07 Ur Specific [place] 1.013 (1.003-1.030) 11/20/19 08:07 Urine Protein 30 mg/dl mg/dL (Negative) 11/20/19 08:07 Urine Glucose (UA) Neg mg/dL (Negative) 11/20/19 08:07 Urine Ketones Neg mg/dL (Negative) 11/20/19 08:07 Urine Blood Lg (Negative) 11/20/19 08:07 Urine Nitrite Neg (Negative) 11/20/19 08:07 Urine Bilirubin Neg (Negative) 11/20/19 08:07 Urine Urobilinogen < 2.0 mg/dL (<2.0) 11/20/19 08:07 Ur Leukocyte Esterase Neg (Negative) 11/20/19 08:07 Urine WBC (Auto) 9.0 /HPF (0.0-6.0) H 11/20/19 08:07 Urine RBC (Auto) 24.0 /HPF (0.0-6.0) 11/20/19 08:07 U Epithel Cells (Auto) 1.0 /HPF (0-13.0) 11/20/19 08:07 Urine Bacteria (Auto) 1+ /HPF (Negative) 11/20/19 08:07 Hyaline Casts 4 /LPF 11/20/19 08:07 Urine Mucus Few /HPF 11/20/19 08:07 Urine Creatinine 170.7 mg/dL (0.1-20.0) H 11/20/19 08:07 Urine Sodium 17 mmol/L 11/20/19 08:07 Salicylates < 0.3 mg/dL (2.8-20.0) L 11/19/19 04:56 Urine Opiates Screen Presumptive positive 11/19/19 Unknown Urine Methadone Screen Presumptive negative 11/19/19 Unknown Acetaminophen < 5.0 ug/mL (10.0-30.0) L 11/19/19 04:56 Ur Barbiturates Screen Presumptive negative 11/19/19 Unknown Ur Phencyclidine Scrn Presumptive negative 11/19/19 Unknown Ur Amphetamines Screen Presumptive negative 11/19/19 Unknown U Benzodiazepines Scrn Presumptive negative 11/19/19 Unknown Urine Cocaine Screen Presumptive negative 11/19/19 Unknown U Marijuana (THC) Screen Presumptive negative 11/19/19 Unknown Drugs of Abuse Note Disclamer 11/19/19 Unknown Plasma/Serum Alcohol < 0.01 % (0-0.07) 11/19/19 04:21 Hepatitis A IgM Ab Non-reactive (NonReactive) 11/20/19 02:20 Hep Bs Antigen Non-reactive (Negative) 11/20/19 02:20 Hep B Core IgM Ab Non-reactive (NonReactive) 11/20/19 02:20 Hepatitis C Antibody Non-reactive (NonReactive) 11/20/19 02:20 - Imaging and Cardiology Chest x-ray: report reviewed, image reviewed Active Medications - Current Medications Current Medications: Generic Name Dose Route Start Last Admin Trade Name Freq PRN Reason Stop Dose Admin Albumin Human 25 gm 11/20/19 03:48 11/20/19 04:23 Alburx 25% (Albumin) IV 25 gm EDGAR PRN Administration Hypotension Lipase/Protease/Amylase 1 each 11/21/19 11:[address] 10,500 Unit FEEDTUBE PRN PRN For Clogged Feeding Tube Enoxaparin Sodium 40 mg 11/21/19 10:00 11/21/19 10:04 Enoxaparin SUB-Q 40 mg QDAY@1000 JAVED Administration Famotidine 20 mg 11/21/19 10:00 11/21/19 10:04 Pepcid IV 20 mg BID JAVED Administration Fentanyl 50 mcg 11/19/19 11:27 Sublimaze IV Q10MIN PRN ANALGESIA Haloperidol Lactate 5 mg 11/21/19 21:18 Haldol IV 11/23/19 21:17 Q6H PRN Agitation Haloperidol Lactate 5 mg 11/21/19 20:30 Haldol IM 11/23/19 20:29 Q6H PRN Agitation Haloperidol Lactate 5 mg 11/21/19 22:00 Haldol IM 11/21/19 22:01 ONCE ONE Hydrophilic Ointment 1 applic 11/19/19 04:42 Vaseline Lip Therapy TP Q2HR PRN Dry Lips Fentanyl Citrate 2,000 mcg in 100 mls @ 5.625 mls/hr 11/19/19 12:00 11/21/19 17:30 Fentanyl Drip Premix IV 1 mcg/kg/hr TITR JAVED 5.625 mls/hr Titration Protocol 1 MCG/KG/HR Sodium Bicarbonate 75 meq/ 1,075 mls @ 100 mls/hr 11/19/19 21:00 11/21/19 10:04 Dextrose/Sodium Chloride IV 100 mls/hr DIRECT JAVED Administration Sodium Chloride 100 mls @ 999 mls/hr 11/20/19 03:48 Nacl 0.9% IV EDGAR PRN Hypotension Levofloxacin/Dextrose 500 mg in 100 mls @ 100 mls/hr 11/22/19 10:00 Levaquin 500mg/100ml IV 11/25/19 10:59 Q24HR JAVED Multi-Ingred Cream/Lotion/Oil/Oint 1 applic 11/19/19 04:42 Artificial Tears Ophth Oint OU Q4HR PRN Dry Eye(s) Quetiapine Fumarate 200 mg 11/21/19 22:00 Seroquel PO BID JAVED Simple Syrup 15 ml 11/21/19 11:31 Simple Syrup FEEDTUBE PRN PRN Hypoglycemia Simple Syrup 30 ml 11/21/19 11:31 Simple Syrup FEEDTUBE PRN PRN Hypoglycemia Sodium Bicarbonate 325 mg 11/21/19 11:31 Sodium Bicarbonate FEEDTUBE PRN PRN For Clogged Feeding Tube Sodium Chloride 10 ml 11/19/19 22:00 11/21/19 10:18 Sodium Chloride Flush Syringe 10 Ml IV 10 ml BID JAVED Administration Sodium Chloride 10 ml 11/19/19 12:43 Sodium Chloride Flush Syringe 10 Ml IV PRN PRN LINE FLUSH Nutrition/Malnutrition Assess - Dietary Evaluation Nutrition/Malnutrition Findings: Nutrition Notes Start: 11/19/19 12:57 Freq: Status: Active Protocol: Document 11/21/19 11:20 [place] (Rec: 11/21/19 11:31 CT [id number]) Co-Sign 11/21/19 11:20 LP Nutrition Notes Initial or Follow up Reassessment Other Pertinent Diagnosis Opiod overdose, hyperkalemia, renal insufficiency Current Diet NPO Labs/Tests BUN 24 Cr 1.7 Pertinent Medications Reviewed Height 6 ft Weight 112.491 kg [place] Body Weight (kg) 80.90 BMI 33.6 Weight Status Obese Subjective/Other Information MD consult to write/manage TF. Burn Absent Trauma Absent Current % PO Negligible Minimum of two criteria No physical signs of malnutrition #1 Nutrition Diagnosis Inadequate oral intake Diagnosis Progress(for reassessment Continues documentation) Is patient on ventilator? Yes Is Patient Ambulatory and/or Out of Bed No REE-([place]-[facility] Je[facility]-confined to bed) 2495.892 Kcal/Kg value to use for calculation 18 Approximate Energy Requirements Using 2024 kcal/Kg Calculation Used for Recommendations Kcal/kg Additional Notes PRO: >162g (>2g IBW 80.9kg) Fluid: 1mL/kcal or per MD Nutrition Intervention Change Diet Order: TF start Nutrition Support: Nepro 1.8 at 50mL/hr Free water flush 200mL q4h. Kcal 2,106 Protein (gm) 97 Fluid (mL) 872 Goal #1 TF start Goal #2 TF tolerance Anticipated Discharge Needs: Unable to determine at this time Follow-Up By: 11/24/19 Additional Comments Follow for TF start/tolerance
--- NOTE | 2019-11-21 22:37 | XRay Report ---
ABDOMEN, SINGLE VIEW INDICATION / CLINICAL INFORMATION: dobhoff placement. COMPARISON: None available. FINDINGS: Dobbhoff feeding tube has been placed. The tip is in the proximal to midportion of the stomach and ap pears to be in satisfactory position. Signer Name: Lakia Stevenson MD Signed: 11/21/2019 10:33 PM Workstation Name: [id number]
[2019-11-22] MEDS: QUEtiapine 100 MG TAB PO SCH ×3 (01:06→21:22)
--- NOTE | 2019-11-22 03:32 | XRay Report ---
CHEST 1 VIEW 2:13 AM INDICATION / CLINICAL INFORMATION: Follow-up respiratory failure. COMPARISON: Yesterday. FINDINGS: SUPPORT DEVICES: The endotracheal tube has been removed. The nasogastric tube has been removed with a new feeding tube present in the stomach. HEART / MEDIASTINUM: Unchanged. LUNGS / PLEURA: There is parenchymal disease in both lower lung zones medially, left greater than rig ht. Disease in the left mid to lower lung laterally has cleared. No pneumothorax. ADDITIONAL FINDINGS: Bilateral subcutaneous emphysema in the neck has shown slight improvement. IMPRESSION: Bibasilar atelectasis or consolidation, greater on the left. Patchy disease in the left m id to lower lung laterally has cleared. Signer Name: Jordy Mcrae MD Signed: 11/22/2019 3:28 AM Workstation Name: [email or web address]
[2019-11-22] MEDS: ENOXAPARIN 40 MG/0.4 ML INJ SUB-Q SCH (09:45)
[2019-11-22] MEDS: FAMOTIDINE 20 MG/2 ML INJ IV SCH ×2 (09:45→21:22)
--- NOTE | 2019-11-22 11:04 | Progress Note ---
Assessment and Plan Acute Hypoxemic Respiratory Failure s/p MVS Acute Toxic/Metabolic Encephalopathy Hypercapnic Respiratory Failure Drug Overdose Obesity CHRIS-Hyperkalemia s/p HD Leucocytosis Anemia Hypernatremia - continue to wean supplemental oxygen for target O2 sat's > 90% -NIPPV qhs and prn - Aspiration precautions -ABG and CXR in am -Bedside swallow evaluation -Free water flushes, hypotonic solutions -Trend electrolytes, and treat accordingly - continue accuchecks resumed with glycemic control per SSI (While critically ill target blood glucose of 140-180 mg/dL; avoid hypoglycemia) - complete empiric AB's course (On Levaquin) - Maintenance of sleep-wake cycle, avoid delirium - continue enteral nutritional support at goal rate as tolerated if he fails swallow evaluation - G.I. 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 The aggregate critical care time was [35] minutes without overlap. Time includes spent on; [x] Data Review and interpretation [x] Patient assessment and monitoring of vital signs [x] Documentation [x] Medication orders and management Subjective Date of service: 11/22/19 Interval history: Patient is seen today for: Acute Respiratory Failure s/p MVS; Drug OD; Acute Toxic/Metabolic Encephalopathy; CHRIS Seen and examined at bedside; 24hour events reviewed; nursing and respiratory care staff consulted; no adverse overnight events reported to me; laying in bed; no emesis or overt aspiration; No seizures, remains extubated Objective - Exam Narrative Exam: General appearance: Present: mild distress (Patient is somnolent and lethargic), well-nourished, - EENT Eyes: Present: PERRL, EOM intact ENT: hearing intact, clear oral mucosa, dentition normal - Neck Neck: Present: supple, normal ROM - Respiratory Respiratory effort: normal Respiratory: bilateral: CTA - Cardiovascular Rhythm: regular Heart Sounds: Present: S1 & S2. Absent: gallop, rub - Extremities Extremities: no ischemia, No edema, Full ROM - Abdominal General gastrointestinal: soft, non-tender, non-distended, normal bowel sounds - Integumentary Integumentary: Present: clear, warm, dry - Neurologic Neurologic: CNII-XII intact, moves all extremities Vital Signs - 12hr 11/21/19 11/21/19 11/21/19 23:15 23:25 23:26 Temperature Pulse Rate 94 H 64 77 Pulse Rate [ Apical] Pulse Rate [ From Monitor] Respiratory 20 20 Rate Blood Pressure 148/83 148/83 O2 Sat by Pulse 97 98 97 Oximetry 11/21/19 11/21/19 11/22/19 23:30 23:45 00:00 Temperature 99.5 F Pulse Rate 75 72 73 Pulse Rate [ Apical] Pulse Rate [ From Monitor] Respiratory 20 19 21 Rate Blood Pressure 140/76 148/74 154/89 O2 Sat by Pulse 98 98 98 Oximetry 11/22/19 11/22/19 11/22/19 00:15 00:30 00:45 Temperature Pulse Rate 76 77 Pulse Rate [ Apical] Pulse Rate [ From Monitor] Respiratory 20 19 Rate Blood Pressure 145/87 154/92 153/96 O2 Sat by Pulse 97 90 97 Oximetry 11/22/19 11/22/19 11/22/19 01:00 01:05 01:15 Temperature Pulse Rate 64 64 Pulse Rate [ Apical] Pulse Rate [ From Monitor] Respiratory 17 20 Rate Blood Pressure 161/95 141/74 O2 Sat by Pulse 93 98 97 Oximetry 11/22/19 11/22/19 11/22/19 01:30 01:45 02:00 Temperature Pulse Rate 64 64 60 Pulse Rate [ Apical] Pulse Rate [ From Monitor] Respiratory 16 23 27 H Rate Blood Pressure 132/74 125/68 133/69 O2 Sat by Pulse 98 98 100 Oximetry 11/22/19 11/22/19 11/22/19 02:15 02:30 02:45 Temperature Pulse Rate 64 62 71 Pulse Rate [ Apical] Pulse Rate [ From Monitor] Respiratory 36 H 28 H 22 Rate Blood Pressure 127/71 144/70 147/96 O2 Sat by Pulse 98 98 98 Oximetry 11/22/19 11/22/19 11/22/19 03:00 03:05 03:11 Temperature Pulse Rate 60 64 Pulse Rate [ Apical] Pulse Rate [ From Monitor] Respiratory 19 20 Rate Blood Pressure 128/72 147/96 O2 Sat by Pulse 98 98 98 Oximetry 11/22/19 11/22/19 11/22/19 03:15 03:31 03:45 Temperature Pulse Rate 69 60 62 Pulse Rate [ Apical] Pulse Rate [ From Monitor] Respiratory 20 20 20 Rate Blood Pressure 147/96 170/80 159/72 O2 Sat by Pulse 98 98 98 Oximetry 11/22/19 11/22/19 11/22/19 04:00 04:01 04:05 Temperature 97.9 F Pulse Rate 67 67 Pulse Rate [ Apical] Pulse Rate [ From Monitor] Respiratory 20 Rate Blood Pressure 143/84 O2 Sat by Pulse 96 98 Oximetry 11/22/19 11/22/19 11/22/19 04:15 04:31 04:45 Temperature Pulse Rate 63 59 L 74 Pulse Rate [ Apical] Pulse Rate [ From Monitor] Respiratory 19 18 23 Rate Blood Pressure 143/84 143/84 143/84 O2 Sat by Pulse 97 97 96 Oximetry 11/22/19 11/22/19 11/22/19 05:00 05:15 05:31 Temperature Pulse Rate 62 63 61 Pulse Rate [ Apical] Pulse Rate [ From Monitor] Respiratory 15 20 19 Rate Blood Pressure 152/82 152/82 152/82 O2 Sat by Pulse 98 98 99 Oximetry 11/22/19 11/22/19 11/22/19 05:45 06:01 06:15 Temperature Pulse Rate 63 60 64 Pulse Rate [ Apical] Pulse Rate [ From Monitor] Respiratory 20 20 20 Rate Blood Pressure 152/82 144/69 144/69 O2 Sat by Pulse 99 99 98 Oximetry 11/22/19 11/22/19 11/22/19 06:30 06:31 06:45 Temperature Pulse Rate 64 56 L 66 Pulse Rate [ Apical] Pulse Rate [ From Monitor] Respiratory 19 20 Rate Blood Pressure 144/69 144/69 O2 Sat by Pulse 98 98 97 Oximetry 11/22/19 11/22/19 11/22/19 07:00 07:15 07:22 Temperature Pulse Rate 62 70 68 Pulse Rate [ Apical] Pulse Rate [ From Monitor] Respiratory 16 20 20 Rate Blood Pressure 146/71 146/71 146/71 O2 Sat by Pulse 98 98 97 Oximetry 11/22/19 11/22/19 11/22/19 07:31 07:45 08:00 Temperature 98.5 F Pulse Rate 59 L 84 71 Pulse Rate [ 71 Apical] Pulse Rate [ 71 From Monitor] Respiratory 17 20 21 Rate Blood Pressure 146/71 146/71 148/90 O2 Sat by Pulse 98 95 98 Oximetry 11/22/19 11/22/19 11/22/19 08:15 08:31 08:45 Temperature Pulse Rate 67 113 H 69 Pulse Rate [ Apical] Pulse Rate [ From Monitor] Respiratory 20 21 21 Rate Blood Pressure 148/90 148/90 148/90 O2 Sat by Pulse 92 94 95 Oximetry 11/22/19 11/22/19 11/22/19 09:01 09:15 09:31 Temperature Pulse Rate 60 73 61 Pulse Rate [ Apical] Pulse Rate [ From Monitor] Respiratory 20 22 20 Rate Blood Pressure 162/75 162/75 162/75 O2 Sat by Pulse 96 97 96 Oximetry 11/22/19 11/22/19 11/22/19 09:45 10:00 10:01 Temperature Pulse Rate 62 62 60 Pulse Rate [ 62 Apical] Pulse Rate [ 62 From Monitor] Respiratory 20 21 20 Rate Blood Pressure 162/75 161/77 O2 Sat by Pulse 98 98 97 Oximetry 11/22/19 11/22/19 10:15 10:31 Temperature Pulse Rate 87 64 Pulse Rate [ Apical] Pulse Rate [ From Monitor] Respiratory 12 20 Rate Blood Pressure 161/77 161/77 O2 Sat by Pulse 94 94 Oximetry CBC and BMP: 11/20/19 05:57 11/21/19 14:36 ABG, PT/INR, D-dimer: ABG POC ABG pH 7.321 (7.35-7.45) L 11/21/19 20:45 ABG pH 7.168 pH Units (7.350-7.450) L* 11/19/19 04:20 POC ABG pCO2 60.5 (35-45) H 11/21/19 20:45 ABG pCO2 52.1 mm Hg 11/19/19 04:20 POC ABG pO2 74 (80-105) L 11/21/19 20:45 ABG pO2 51.2 mm Hg (80.0-90.0) L 11/19/19 04:20 POC ABG HCO3 31.2 (22-26 mml/L) 11/21/19 20:45 POC ABG Total CO2 33 (23-27mmol/L) 11/21/19 20:45 POC ABG O2 Sat 93 11/21/19 20:45 ABG O2 Saturation 76.7 % (95.0-99.0) L 11/19/19 04:20 PT/INR, D-dimer PT 15.7 Sec. (12.2-14.9) H 11/19/19 04:21 INR 1.23 (0.87-1.13) H 11/19/19 04:21 Abnormal lab findings: Abnormal Labs 11/19/19 11/19/19 11/19/19 04:20 04:21 04:21 WBC 11.2 H RBC 5.20 H Hgb Hct MCV 81 L MCH 26 L Lymph % (Auto) [place] % (Auto) Lymph # [place] # Seg Neutrophils % 79.0 H Seg Neutrophils # 8.9 H PT 15.7 H INR 1.23 H POC ABG pH ABG pH 7.168 L* POC ABG pCO2 POC ABG pO2 ABG pO2 51.2 L ABG HCO3 18.5 L ABG O2 Saturation 76.7 L ABG Base Excess -10.2 L ABG Hemoglobin 13.5 L Oxyhemoglobin 75.0 L Sodium Potassium Chloride Carbon Dioxide BUN Creatinine Glucose Uric Acid Calcium Total Creatine Kinase Urine WBC (Auto) Urine Creatinine Salicylates Acetaminophen 11/19/19 11/19/19 11/19/19 04:21 04:56 04:56 WBC RBC Hgb Hct MCV MCH Lymph % (Auto) [place] % (Auto) Lymph # [place] # Seg Neutrophils % Seg Neutrophils # PT INR POC ABG pH ABG pH POC ABG pCO2 POC ABG pO2 ABG pO2 ABG HCO3 ABG O2 Saturation ABG Base Excess ABG Hemoglobin Oxyhemoglobin Sodium 136 L Potassium 5.5 H Chloride 96.6 L Carbon Dioxide 18 L BUN 21 H Creatinine 2.2 H Glucose 393 H Uric Acid Calcium Total Creatine Kinase 392 H Urine WBC (Auto) Urine Creatinine Salicylates < 0.3 L Acetaminophen < 5.0 L 11/19/19 11/19/19 11/19/19 06:29 09:04 12:42 WBC RBC Hgb Hct MCV MCH Lymph % (Auto) [place] % (Auto) Lymph # [place] # Seg Neutrophils % Seg Neutrophils # PT INR POC ABG pH 7.208 L 7.186 L 7.205 L ABG pH POC ABG pCO2 57.1 H 66.6 H 62.8 H POC ABG pO2 59 L 58 L ABG pO2 ABG HCO3 ABG O2 Saturation ABG Base Excess ABG Hemoglobin Oxyhemoglobin Sodium Potassium Chloride Carbon Dioxide BUN Creatinine Glucose Uric Acid Calcium Total Creatine Kinase Urine WBC (Auto) Urine Creatinine Salicylates Acetaminophen 11/19/19 11/19/19 11/19/19 12:57 17:59 22:00 WBC RBC Hgb Hct MCV MCH Lymph % (Auto) [place] % (Auto) Lymph # [place] # Seg Neutrophils % Seg Neutrophils # PT INR POC ABG pH 7.204 L 7.180 L ABG pH POC ABG pCO2 66.2 H 68.5 H POC ABG pO2 68 L ABG pO2 ABG HCO3 ABG O2 Saturation ABG Base Excess ABG Hemoglobin Oxyhemoglobin Sodium 135 L Potassium 8.5 H* D Chloride Carbon Dioxide 18 L BUN 40 H Creatinine 3.5 H D Glucose 127 H Uric Acid 10.2 H Calcium 8.0 L Total Creatine Kinase Urine WBC (Auto) Urine Creatinine Salicylates Acetaminophen 11/19/19 11/19/19 11/20/19 22:49 Unknown 05:57 WBC 15.1 H RBC Hgb 11.5 L Hct 35.1 L D MCV 80 L MCH 26 L Lymph % (Auto) 5.0 L [place] % (Auto) 9.0 H Lymph # 0.8 L [place] # 1.4 H Seg Neutrophils % 85.7 H Seg Neutrophils # 13.0 H PT INR POC ABG pH ABG pH POC ABG pCO2 POC ABG pO2 ABG pO2 ABG HCO3 ABG O2 Saturation ABG Base Excess ABG Hemoglobin Oxyhemoglobin Sodium Potassium 8.6 H* Chloride Carbon Dioxide BUN Creatinine Glucose Uric Acid Calcium Total Creatine Kinase 396 H Urine WBC (Auto) Urine Creatinine Salicylates Acetaminophen 11/20/19 11/20/19 11/20/19 05:57 06:05 08:07 WBC RBC Hgb Hct MCV MCH Lymph % (Auto) [place] % (Auto) Lymph # [place] # Seg Neutrophils % Seg Neutrophils # PT INR POC ABG pH 7.312 L ABG pH POC ABG pCO2 57.9 H POC ABG pO2 ABG pO2 ABG HCO3 ABG O2 Saturation ABG Base Excess ABG Hemoglobin Oxyhemoglobin Sodium Potassium Chloride Carbon Dioxide BUN 25 H Creatinine 2.6 H Glucose 120 H Uric Acid Calcium 8.0 L Total Creatine Kinase Urine WBC (Auto) 9.0 H Urine Creatinine Salicylates Acetaminophen 11/20/19 11/20/19 11/21/19 08:07 18:38 04:44 WBC RBC Hgb Hct MCV MCH Lymph % (Auto) [place] % (Auto) Lymph # [place] # Seg Neutrophils % Seg Neutrophils # PT INR POC ABG pH 7.291 L ABG pH POC ABG pCO2 65.9 H POC ABG pO2 77 L ABG pO2 ABG HCO3 ABG O2 Saturation ABG Base Excess ABG Hemoglobin Oxyhemoglobin Sodium Potassium Chloride Carbon Dioxide BUN 24 H Creatinine 1.7 H Glucose Uric Acid Calcium Total Creatine Kinase Urine WBC (Auto) Urine Creatinine 170.7 H Salicylates Acetaminophen 11/21/19 11/21/19 11/21/19 09:54 14:36 20:45 WBC RBC Hgb Hct MCV MCH Lymph % (Auto) Blair % (Auto) Lymph # Blair # Seg Neutrophils % Seg Neutrophils # PT INR POC ABG pH 7.485 H 7.321 L ABG pH POC ABG pCO2 60.5 H POC ABG pO2 74 L ABG pO2 ABG HCO3 ABG O2 Saturation ABG Base Excess ABG Hemoglobin Oxyhemoglobin Sodium 146 H Potassium Chloride 107.3 H Carbon Dioxide BUN Creatinine Glucose Uric Acid Calcium Total Creatine Kinase Urine WBC (Auto) Urine Creatinine Salicylates Acetaminophen Chest x-ray: image reviewed
--- NOTE | 2019-11-22 11:23 | Progress Note ---
Subjective Interval history: Patient was seen today for follow-up on multiple renal related issues has had one dialysis treatment dialysis catheter has been removed Vitals intake output medications were reviewed Past medical history: Reviewed Family, social history: Reviewed Allergies: Reviewed Physical examination General: No acute distress Vitals: Reviewed HEENT: Oral mucosa moist no icterus Neck: Supple no thyromegaly nodular mass or JVD Chest: Clear to auscultation anteriorly Heart: Regular rate and rhythm S1-S2 heard no S3-S4 Abdomen: Soft nontender no suprapubic masses no organomegaly Extremity: Dry skin less than 1+ edema Psych: No evidence of any agitation and aggression noted Derm: No petechial rash Assessment and plan: Acute kidney injury requiring replacement therapy in the ICU setting now Patient is doing well from renal standpoint Renal function has markedly improved He does not need anymore dialysis We'll sign off the case please make an appointment to follow up with us in the office upon discharge Care plan has been discussed with patient's caregiver yesterday at the bedside at length Likely he has had no acute ischemic tubular necrosis moderately severe requiring dialysis at least 1 time but patient is young and has been recovering from renal standpoint He has had difficulty oxygenating which also worsened his renal function Opiate overdose, currently intubated respiratory failure, having issues with o xygenation, ? Lung disease? Interstitial edema ? Inflammatory, we'll need input from pulmonary medicine in the meantime he will need to continue with antibiotic therapy renal prognosis remains guarded We'll continue to follow and make recommendation from renal standpoint Objective - Vital Signs Vital signs: Vital Signs - 12hr 11/21/19 11/21/19 11/21/19 23:25 23:26 23:30 Temperature Pulse Rate 64 77 75 Pulse Rate [ Apical] Pulse Rate [ From Monitor] Respiratory 20 20 Rate Blood Pressure 148/83 140/76 O2 Sat by Pulse 98 97 98 Oximetry 11/21/19 11/22/19 11/22/19 23:45 00:00 00:15 Temperature 99.5 F Pulse Rate 72 73 Pulse Rate [ Apical] Pulse Rate [ From Monitor] Respiratory 19 21 Rate Blood Pressure 148/74 154/89 145/87 O2 Sat by Pulse 98 98 97 Oximetry 11/22/19 11/22/19 11/22/19 00:30 00:45 01:00 Temperature Pulse Rate 76 77 Pulse Rate [ Apical] Pulse Rate [ From Monitor] Respiratory 20 19 17 Rate Blood Pressure 154/92 153/96 161/95 O2 Sat by Pulse 90 97 93 Oximetry 11/22/19 11/22/19 11/22/19 01:05 01:15 01:30 Temperature Pulse Rate 64 64 64 Pulse Rate [ Apical] Pulse Rate [ From Monitor] Respiratory 20 16 Rate Blood Pressure 141/74 132/74 O2 Sat by Pulse 98 97 98 Oximetry 11/22/19 11/22/19 11/22/19 01:45 02:00 02:15 Temperature Pulse Rate 64 60 64 Pulse Rate [ Apical] Pulse Rate [ From Monitor] Respiratory 23 27 H 36 H Rate Blood Pressure 125/68 133/69 127/71 O2 Sat by Pulse 98 100 98 Oximetry 11/22/19 11/22/19 11/22/19 02:30 02:45 03:00 Temperature Pulse Rate 62 71 60 Pulse Rate [ Apical] Pulse Rate [ From Monitor] Respiratory 28 H 22 19 Rate Blood Pressure 144/70 147/96 128/72 O2 Sat by Pulse 98 98 98 Oximetry 11/22/19 11/22/19 11/22/19 03:05 03:11 03:15 Temperature Pulse Rate 64 69 Pulse Rate [ Apical] Pulse Rate [ From Monitor] Respiratory 20 20 Rate Blood Pressure 147/96 147/96 O2 Sat by Pulse 98 98 98 Oximetry 11/22/19 11/22/19 11/22/19 03:31 03:45 04:00 Temperature 97.9 F Pulse Rate 60 62 Pulse Rate [ Apical] Pulse Rate [ From Monitor] Respiratory 20 20 Rate Blood Pressure 170/80 159/72 O2 Sat by Pulse 98 98 Oximetry 11/22/19 11/22/19 11/22/19 04:01 04:05 04:15 Temperature Pulse Rate 67 67 63 Pulse Rate [ Apical] Pulse Rate [ From Monitor] Respiratory 20 19 Rate Blood Pressure 143/84 143/84 O2 Sat by Pulse 96 98 97 Oximetry 11/22/19 11/22/19 11/22/19 04:31 04:45 05:00 Temperature Pulse Rate 59 L 74 62 Pulse Rate [ Apical] Pulse Rate [ From Monitor] Respiratory 18 23 15 Rate Blood Pressure 143/84 143/84 152/82 O2 Sat by Pulse 97 96 98 Oximetry 11/22/19 11/22/19 11/22/19 05:15 05:31 05:45 Temperature Pulse Rate 63 61 63 Pulse Rate [ Apical] Pulse Rate [ From Monitor] Respiratory 20 19 20 Rate Blood Pressure 152/82 152/82 152/82 O2 Sat by Pulse 98 99 99 Oximetry 11/22/19 11/22/19 11/22/19 06:01 06:15 06:30 Temperature Pulse Rate 60 64 64 Pulse Rate [ Apical] Pulse Rate [ From Monitor] Respiratory 20 20 Rate Blood Pressure 144/69 144/69 O2 Sat by Pulse 99 98 98 Oximetry 11/22/19 11/22/19 11/22/19 06:31 06:45 07:00 Temperature Pulse Rate 56 L 66 62 Pulse Rate [ Apical] Pulse Rate [ From Monitor] Respiratory 19 20 16 Rate Blood Pressure 144/69 144/69 146/71 O2 Sat by Pulse 98 97 98 Oximetry 11/22/19 11/22/19 11/22/19 07:15 07:22 07:31 Temperature Pulse Rate 70 68 59 L Pulse Rate [ Apical] Pulse Rate [ From Monitor] Respiratory 20 20 17 Rate Blood Pressure 146/71 146/71 146/71 O2 Sat by Pulse 98 97 98 Oximetry 11/22/19 11/22/19 11/22/19 07:45 08:00 08:15 Temperature 98.5 F Pulse Rate 84 71 67 Pulse Rate [ 71 Apical] Pulse Rate [ 71 From Monitor] Respiratory 20 21 20 Rate Blood Pressure 146/71 148/90 148/90 O2 Sat by Pulse 95 98 92 Oximetry 11/22/19 11/22/19 11/22/19 08:31 08:45 09:01 Temperature Pulse Rate 113 H 69 60 Pulse Rate [ Apical] Pulse Rate [ From Monitor] Respiratory 21 21 20 Rate Blood Pressure 148/90 148/90 162/75 O2 Sat by Pulse 94 95 96 Oximetry 11/22/19 11/22/19 11/22/19 09:15 09:31 09:45 Temperature Pulse Rate 73 61 62 Pulse Rate [ Apical] Pulse Rate [ From Monitor] Respiratory 22 20 20 Rate Blood Pressure 162/75 162/75 162/75 O2 Sat by Pulse 97 96 98 Oximetry 11/22/19 11/22/19 11/22/19 10:00 10:01 10:15 Temperature Pulse Rate 62 60 87 Pulse Rate [ 62 Apical] Pulse Rate [ 62 From Monitor] Respiratory 21 20 12 Rate Blood Pressure 161/77 161/77 O2 Sat by Pulse 98 97 94 Oximetry 11/22/19 11/22/19 11/22/19 10:31 10:45 11:01 Temperature Pulse Rate 64 61 60 Pulse Rate [ Apical] Pulse Rate [ From Monitor] Respiratory 20 20 20 Rate Blood Pressure 161/77 161/77 155/74 O2 Sat by Pulse 94 96 95 Oximetry - Lab 11/20/19 05:57 11/21/19 14:36 Most recent lab results ABG pH 7.168 pH Units (7.350-7.450) L* 11/19/19 04:20 ABG pCO2 52.1 mm Hg 11/19/19 04:20 ABG pO2 51.2 mm Hg (80.0-90.0) L 11/19/19 04:20 ABG HCO3 18.5 mmol/L (20.0-26.0) L 11/19/19 04:20 ABG O2 Saturation 76.7 % (95.0-99.0) L 11/19/19 04:20 Calcium 8.9 mg/dL (8.4-10.2) 11/21/19 14:36 Urine Creatinine 170.7 mg/dL (0.1-20.0) H 11/20/19 08:07 Urine Sodium 17 mmol/L 11/20/19 08:07 Medications & Allergies - Medications Allergies/Adverse Reactions: Allergies No Known Allergies Allergy (Verified 11/19/19 05:44) Home Medications: Home Medications Medication Instructions Recorded Confirmed Last Taken Type No Known Home Medications [No 11/19/19 11/19/19 Unknown History Reported Home Medications] Active Medications: Generic Name Dose Route Start Last Admin Trade Name Deejayq PRN Reason Stop Dose Admin Albumin Human 25 gm 11/20/19 03:48 11/20/19 04:23 Alburx 25% (Albumin) IV 25 gm EDGAR PRN Administration Hypotension Lipase/Protease/Amylase 1 each 11/21/19 11:31 Pancremicky Raymond 10,500 Unit FEEDTUBE PRN PRN For Clogged Feeding Tube Enoxaparin Sodium 40 mg 11/21/19 10:00 11/22/19 09:45 Enoxaparin SUB-Q 40 mg QDAY@1000 JAVED Administration Famotidine 20 mg 11/21/19 10:00 11/22/19 09:45 Pepcid IV 20 mg BID JAVED Administration Haloperidol Lactate 5 mg 11/21/19 21:18 11/21/19 22:16 Haldol IV 11/23/19 21:17 5 mg Q6H PRN Administration Agitation Haloperidol Lactate 5 mg 11/21/19 20:30 Haldol IM 11/23/19 20:29 Q6H PRN Agitation Hydrophilic Ointment 1 applic 11/19/19 04:42 Vaseline Lip Therapy TP Q2HR PRN Dry Lips Sodium Bicarbonate 75 meq/ 1,075 mls @ 100 mls/hr 11/19/19 21:00 11/21/19 22:17 Dextrose/Sodium Chloride IV 100 mls/hr DIRECT JAVED Administration Sodium Chloride 100 mls @ 999 mls/hr 11/20/19 03:48 Nacl 0.9% IV EDGAR PRN Hypotension Levofloxacin/Dextrose 500 mg in 100 mls @ 100 mls/hr 11/22/19 10:00 11/22/19 09:46 Levaquin 500mg/100ml IV 11/25/19 10:59 100 mls/hr Q24HR JAVED Administration Multi-Ingred Cream/Lotion/Oil/Oint 1 applic 11/19/19 04:42 Artificial Tears Ophth Oint OU Q4HR PRN Dry Eye(s) Quetiapine Fumarate 200 mg 11/21/19 22:00 11/22/19 09:45 Seroquel PO 200 mg BID JAVED Administration Simple Syrup 15 ml 11/21/19 11:31 Simple Syrup FEEDTUBE PRN PRN Hypoglycemia Simple Syrup 30 ml 11/21/19 11:31 Simple Syrup FEEDTUBE PRN PRN Hypoglycemia Sodium Bicarbonate 325 mg 11/21/19 11:31 Sodium Bicarbonate FEEDTUBE PRN PRN For Clogged Feeding Tube Sodium Chloride 10 ml 11/19/19 22:00 11/22/19 09:45 Sodium Chloride Flush Syringe 10 Ml IV 10 ml BID JAVED Administration Sodium Chloride 10 ml 11/19/19 12:43 Sodium Chloride Flush Syringe 10 Ml IV PRN PRN LINE FLUSH
--- NOTE | 2019-11-22 14:14 | Progress Note ---
Assessment and Plan Assessment and plan: Acute hypoxemic hypercapnic respiratory failure. Patient is extubated. Continue BiPAP as clinically indicated. Pulmonary following. Opioid overdose. Patient urine drug screen positive for opiates. Patient has a long history of polysubstance abuse of various different types of illegal street drugs per family. We will continue to monitor. Psychiatric consultation when patient medically stable. Acute kidney injury. Etiology likely secondary to ATN from hypotension from drug overdose. Patient required one dialysis treatment due to severe hyperkalemia, his urine output has markedly improved his electrolytes have been stable now. Nephrology does not believe that he needs any further dialysis Aspiration pneumonia. Continue antibiotics. Follow-up chest x-ray. Hyperkalemia. Etiology secondary to renal insufficiency. Hyperglycemia. Resolved. The high probability of a clinically significant, sudden or life threatening deterioration of the [respiratory] system(s) required my full and direct attention, intervention and personal management. The aggregate critical care time was [32] minutes. This time is in addition to time spent performing reported procedures but includes the following: [x] Data Review and interpretation [x] Patient assessment and monitoring of vital signs [x] Documentation [x] Medication orders and management History Interval history: Patient extubated on BiPAP. Hospitalist Physical - Constitutional Vitals: Temp Pulse Resp BP Pulse Ox 98.8 F 82 21 160/94 95 11/22/19 12:00 11/22/19 12:11/22/19 12:01 11/22/19 12:11/22/19 12:01 General appearance: Present: mild distress (Patient is somnolent and lethargic), well-nourished, other (Patient is orally intubated on mechanical ventilation.) - EENT Eyes: Present: PERRL, EOM intact ENT: hearing intact, clear oral mucosa, dentition normal - Neck Neck: Present: supple, normal ROM - Respiratory Respiratory effort: normal Respiratory: bilateral: CTA - Cardiovascular Rhythm: regular Heart Sounds: Present: S1 & S2. Absent: gallop, rub - Extremities Extremities: no ischemia, No edema, Full ROM - Abdominal General gastrointestinal: soft, non-tender, non-distended, normal bowel sounds - Integumentary Integumentary: Present: clear, warm, dry - Neurologic Neurologic: CNII-XII intact, moves all extremities Results - Labs CBC & Chem 7: 11/20/19 05:57 11/21/19 14:36 Labs: Laboratory Last Values WBC 15.1 K/mm3 (4.5-11.0) H 11/20/19 05:57 RBC 4.41 M/mm3 (3.65-5.03) 11/20/19 05:57 Hgb 11.5 gm/dl (11.8-15.2) L 11/20/19 05:57 Hct 35.1 % (35.5-45.6) L D 11/20/19 05:57 MCV 80 fl (84-94) L 11/20/19 05:57 MCH 26 pg (28-32) L 11/20/19 05:57 MCHC 33 % (32-34) 11/20/19 05:57 RDW 14.9 % (13.2-15.2) 11/20/19 05:57 Plt Count 293 K/mm3 (140-440) 11/20/19 05:57 Lymph % (Auto) 5.0 % (13.4-35.0) L 11/20/19 05:57 [place] % (Auto) 9.0 % (0.0-7.3) H 11/20/19 05:57 Eos % (Auto) 0.0 % (0.0-4.3) 11/20/19 05:57 Baso % (Auto) 0.3 % (0.0-1.8) 11/20/19 05:57 Lymph # 0.8 K/mm3 (1.2-5.4) L 11/20/19 05:57 [place] # 1.4 K/mm3 (0.0-0.8) H 11/20/19 05:57 Eos # 0.0 K/mm3 (0.0-0.4) 11/20/19 05:57 Baso # 0.0 K/mm3 (0.0-0.1) 11/20/19 05:57 Seg Neutrophils % 85.7 % (40.0-70.0) H 11/20/19 05:57 Seg Neutrophils # 13.0 K/mm3 (1.8-7.7) H 11/20/19 05:57 PT 15.7 Sec. (12.2-14.9) H 11/19/19 04:21 INR 1.23 (0.87-1.13) H 11/19/19 04:21 POC ABG pH 7.321 (7.35-7.45) L 11/21/19 20:45 ABG pH 7.168 pH Units (7.350-7.450) L* 11/19/19 04:20 POC ABG pCO2 60.5 (35-45) H 11/21/19 20:45 ABG pCO2 52.1 mm Hg 11/19/19 04:20 POC ABG pO2 74 (80-105) L 11/21/19 20:45 ABG pO2 51.2 mm Hg (80.0-90.0) L 11/19/19 04:20 POC ABG HCO3 31.2 (22-26 mml/L) 11/21/19 20:45 ABG HCO3 18.5 mmol/L (20.0-26.0) L 11/19/19 04:20 POC ABG Total CO2 33 (23-27mmol/L) 11/21/19 20:45 POC ABG O2 Sat 93 11/21/19 20:45 ABG O2 Saturation 76.7 % (95.0-99.0) L 11/19/19 04:20 ABG O2 Content 14.3 (0.0-44) 11/19/19 04:20 POC ABG Base Excess 5 ((-2) - (+3)mmol/L) 11/21/19 20:45 ABG Base Excess -10.2 mmol/L (-2.0-3.0) L 11/19/19 04:20 ABG Hemoglobin 13.5 gm/dl (14.0-18.0) L 11/19/19 04:20 ABG Carboxyhemoglobin 1.6 % (0.0-5.0) 11/19/19 04:20 ABG Methemoglobin 0.6 % (0.0-1.5) 11/19/19 04:20 Oxyhemoglobin 75.0 % (95.0-99.0) L 11/19/19 04:20 FiO2 100 % 11/21/19 20:45 Sodium 146 mmol/L (137-145) H 11/21/19 14:36 Potassium 4.3 mmol/L (3.6-5.0) 11/21/19 14:36 Chloride 107.3 mmol/L (98-107) H 11/21/19 14:36 Carbon Dioxide 29 mmol/L (22-30) 11/21/19 14:36 Anion Gap 14 mmol/L 11/21/19 14:36 BUN 18 mg/dL (9-20) 11/21/19 14:36 Creatinine 1.3 mg/dL (0.8-1.5) 11/21/19 14:36 Estimated GFR > 60 ml/min 11/21/19 14:36 BUN/Creatinine Ratio 14 % 11/21/19 14:36 Glucose 88 mg/dL (75-100) 11/21/19 14:36 Osmolality 300 Mosm/kg 11/19/19 22:00 Uric Acid 10.2 mg/dL (3.5-7.6) H 11/19/19 22:00 Calcium 8.9 mg/dL (8.4-10.2) 11/21/19 14:36 Total Bilirubin < 0.20 mg/dL (0.1-1.2) 11/19/19 04:21 AST 27 units/L (5-40) 11/19/19 04:21 ALT 32 units/L (7-56) 11/19/19 04:21 Alkaline Phosphatase 61 units/L (35-129) 11/19/19 04:21 Total Creatine Kinase 396 units/L (55-170) H 11/19/19 Unknown CK-MB (CK-2) 4.0 ng/mL (0.0-4.0) 11/19/19 04:21 CK-MB (CK-2) Rel Index 1.0 (0-4) 11/19/19 04:21 Troponin T < 0.010 ng/mL (0.00-0.029) 11/19/19 04:21 NT-Pro-B Natriuret Pep 55.89 pg/mL (0-450) 11/19/19 04:21 Total Protein 7.2 g/dL (6.3-8.2) 11/19/19 04:21 Albumin 4.6 g/dL (3.9-5) 11/19/19 04:21 Albumin/Globulin Ratio 1.8 % 11/19/19 04:21 Urine Color Yellow (Yellow) 11/20/19 08:07 Urine Turbidity Slightly-cloudy (Clear) 11/20/19 08:07 Urine pH 5.0 (5.0-7.0) 11/20/19 08:07 Ur Specific [place] 1.013 (1.003-1.030) 11/20/19 08:07 Urine Protein 30 mg/dl mg/dL (Negative) 11/20/19 08:07 Urine Glucose (UA) Neg mg/dL (Negative) 11/20/19 08:07 Urine Ketones Neg mg/dL (Negative) 11/20/19 08:07 Urine Blood Lg (Negative) 11/20/19 08:07 Urine Nitrite Neg (Negative) 11/20/19 08:07 Urine Bilirubin Neg (Negative) 11/20/19 08:07 Urine Urobilinogen < 2.0 mg/dL (<2.0) 11/20/19 08:07 Ur Leukocyte Esterase Neg (Negative) 11/20/19 08:07 Urine WBC (Auto) 9.0 /HPF (0.0-6.0) H 11/20/19 08:07 Urine RBC (Auto) 24.0 /HPF (0.0-6.0) 11/20/19 08:07 U Epithel Cells (Auto) 1.0 /HPF (0-13.0) 11/20/19 08:07 Urine Bacteria (Auto) 1+ /HPF (Negative) 11/20/19 08:07 Hyaline Casts 4 /LPF 11/20/19 08:07 Urine Mucus Few /HPF 11/20/19 08:07 Urine Creatinine 170.7 mg/dL (0.1-20.0) H 11/20/19 08:07 Urine Sodium 17 mmol/L 11/20/19 08:07 Salicylates < 0.3 mg/dL (2.8-20.0) L 11/19/19 04:56 Urine Opiates Screen Presumptive positive 11/19/19 Unknown Urine Methadone Screen Presumptive negative 11/19/19 Unknown Acetaminophen < 5.0 ug/mL (10.0-30.0) L 11/19/19 04:56 Ur Barbiturates Screen Presumptive negative 11/19/19 Unknown Ur Phencyclidine Scrn Presumptive negative 11/19/19 Unknown Ur Amphetamines Screen Presumptive negative 11/19/19 Unknown U Benzodiazepines Scrn Presumptive negative 11/19/19 Unknown Urine Cocaine Screen Presumptive negative 11/19/19 Unknown U Marijuana (THC) Screen Presumptive negative 11/19/19 Unknown Drugs of Abuse Note Disclamer 11/19/19 Unknown Plasma/Serum Alcohol < 0.01 % (0-0.07) 11/19/19 04:21 Hepatitis A IgM Ab Non-reactive (NonReactive) 11/20/19 02:20 Hep Bs Antigen Non-reactive (Negative) 11/20/19 02:20 Hep B Core IgM Ab Non-reactive (NonReactive) 11/20/19 02:20 Hepatitis C Antibody Non-reactive (NonReactive) 11/20/19 02:20 Active Medications - Current Medications Current Medications: Generic Name Dose Route Start Last Admin Trade Name Freq PRN Reason Stop Dose Admin Albumin Human 25 gm 11/20/19 03:48 11/20/19 04:23 Alburx 25% (Albumin) IV 25 gm EDGAR PRN Administration Hypotension Lipase/Protease/Amylase 1 each 11/21/19 11:31 Pancreaze 10,500 Unit FEEDTUBE PRN PRN For Clogged Feeding Tube Enoxaparin Sodium 40 mg 11/21/19 10:00 11/22/19 09:45 Enoxaparin SUB-Q 40 mg QDAY@1000 JAVED Administration Famotidine 20 mg 11/21/19 10:00 11/22/19 09:45 Pepcid IV 20 mg BID JAVED Administration Haloperidol Lactate 5 mg 11/21/19 21:18 11/21/19 22:16 Haldol IV 11/23/19 21:17 5 mg Q6H PRN Administration Agitation Haloperidol Lactate 5 mg 11/21/19 20:30 Haldol IM 11/23/19 20:29 Q6H PRN Agitation Hydrophilic Ointment 1 applic 11/19/19 04:42 Vaseline Lip Therapy TP Q2HR PRN Dry Lips Sodium Bicarbonate 75 meq/ 1,075 mls @ 100 mls/hr 11/19/19 21:00 11/21/19 22:17 Dextrose/Sodium Chloride IV 100 mls/hr DIRECT JAVED Administration Sodium Chloride 100 mls @ 999 mls/hr 11/20/19 03:48 Nacl 0.9% IV EDGAR PRN Hypotension Levofloxacin/Dextrose 500 mg in 100 mls @ 100 mls/hr 11/22/19 10:00 11/22/19 09:46 Levaquin 500mg/100ml IV 11/25/19 10:59 100 mls/hr Q24HR JAVED Administration Multi-Ingred Cream/Lotion/Oil/Oint 1 applic 11/19/19 04:42 Artificial Tears Ophth Oint OU Q4HR PRN Dry Eye(s) Quetiapine Fumarate 200 mg 11/21/19 22:00 11/22/19 09:45 Seroquel PO 200 mg BID JAVED Administration Simple Syrup 15 ml 11/21/19 11:31 Simple Syrup FEEDTUBE PRN PRN Hypoglycemia Simple Syrup 30 ml 11/21/19 11:31 Simple Syrup FEEDTUBE PRN PRN Hypoglycemia Sodium Bicarbonate 325 mg 11/21/19 11:31 Sodium Bicarbonate FEEDTUBE PRN PRN For Clogged Feeding Tube Sodium Chloride 10 ml 11/19/19 22:00 11/22/19 09:45 Sodium Chloride Flush Syringe 10 Ml IV 10 ml BID JAVED Administration Sodium Chloride 10 ml 11/19/19 12:43 Sodium Chloride Flush Syringe 10 Ml IV PRN PRN LINE FLUSH Nutrition/Malnutrition Assess - Dietary Evaluation Nutrition/Malnutrition Findings: Nutrition Notes Start: 11/19/19 12:57 Freq: Status: Active Protocol: Document 11/21/19 11:20 KS (Rec: 11/21/19 11:31 KS [id number]) Co-Sign 11/21/19 11:20 LP Nutrition Notes Initial or Follow up Reassessment Other Pertinent Diagnosis Opiod overdose, hyperkalemia, renal insufficiency Current Diet NPO Labs/Tests BUN 24 Cr 1.7 Pertinent Medications Reviewed Height 6 ft Weight 112.491 kg [place] Body Weight (kg) 80.90 BMI 33.6 Weight Status Obese Subjective/Other Information MD consult to write/manage TF. Burn Absent Trauma Absent Current % PO Negligible Minimum of two criteria No physical signs of malnutrition #1 Nutrition Diagnosis Inadequate oral intake Diagnosis Progress(for reassessment Continues documentation) Is patient on ventilator? Yes Is Patient Ambulatory and/or Out of Bed No REE[facility]) 2495.892 Kcal/Kg value to use for calculation 18 Approximate Energy Requirements Using 5 kcal/Kg Calculation Used for Recommendations Kcal/kg Additional Notes PRO: >162g (>2g IBW 80.9kg) Fluid: 1mL/kcal or per MD Nutrition Intervention Change Diet Order: TF start Nutrition Support: Nepro 1.8 at 50mL/hr Free water flush 200mL q4h. Kcal 2,106 Protein (gm) 97 Fluid (mL) 872 Goal #1 TF start Goal #2 TF tolerance Anticipated Discharge Needs: Unable to determine at this time Follow-Up By: 11/24/19 Additional Comments Follow for TF start/tolerance
[2019-11-23 05:42] LABS: Basophils % (Auto) 0.5 % (0.0-1.8); Eosinophils # (Auto) 0.1 K/mm3 (0.0-0.4); Eosinophils % (Auto) 1.3 % (0.0-4.3); Hematocrit 35.2 % (35.5-45.6); Hemoglobin 11.6 gm/dl (11.8-15.2); Lymphocytes # (Auto) 1.2 K/mm3 (1.2-5.4); Lymphocytes % (Auto) 11.5 % (13.4-35.0); Mean Corpuscular HGB Conc 33 % (32-34); Mean Corpuscular Volume 78 fl (84-94); Monocytes # (Auto) 0.9 K/mm3 (0.0-0.8); Monocytes % (Auto) 8.5 % (0.0-7.3); Platelet Count 338 K/mm3 (140-440); Red Blood Count 4.52 M/mm3 (3.65-5.03); Red Cell Distribution Width 13.9 % (13.2-15.2)
[2019-11-23 06:01] LABS: BUN/Creatinine Ratio 12; Blood Urea Nitrogen 16 mg/dL (9-20); Calcium 9.2 mg/dL (8.4-10.2); Hemolysis Index 1
--- NOTE | 2019-11-23 09:41 | Progress Note ---
Subjective Date of service: 11/23/19 Principal diagnosis: Acute Respiratory Failure on MVS; Acute Toxic/Metabolic Encephalopathy Interval history: Patient is seen today for: Acute Respiratory Failure s/p MVS; Drug OD; Acute Toxic/Metabolic Encephalopathy; CHRIS Seen and examined at bedside; 24hour events reviewed; nursing and respiratory care staff consulted; no adverse overnight events reported to me; laying in bed; no emesis or overt aspiration; No seizures, remains extubated Objective Vital Signs - 12hr 11/22/19 11/22/19 11/22/19 21:45 22:00 22:15 Temperature Pulse Rate 59 L 63 66 Pulse Rate [ 71 Apical] Pulse Rate [ 71 From Monitor] Pulse Rate [ 71 Right Dorsalis Pedis] Respiratory 19 20 22 Rate Blood Pressure 130/68 139/70 139/70 O2 Sat by Pulse 97 93 96 Oximetry 11/22/19 11/22/19 11/22/19 22:27 22:31 22:38 Temperature Pulse Rate 63 62 64 Pulse Rate [ Apical] Pulse Rate [ From Monitor] Pulse Rate [ Right Dorsalis Pedis] Respiratory 21 16 10 L Rate Blood Pressure 139/70 139/70 139/70 O2 Sat by Pulse 96 97 98 Oximetry 11/22/19 11/22/19 11/22/19 22:45 23:00 23:15 Temperature Pulse Rate 60 65 64 Pulse Rate [ Apical] Pulse Rate [ From Monitor] Pulse Rate [ Right Dorsalis Pedis] Respiratory 18 19 8 L Rate Blood Pressure 139/70 140/63 139/70 O2 Sat by Pulse 98 99 98 Oximetry 11/22/19 11/22/19 11/22/19 23:31 23:40 23:45 Temperature 100.5 F H Pulse Rate 64 Pulse Rate [ Apical] Pulse Rate [ From Monitor] Pulse Rate [ Right Dorsalis Pedis] Respiratory 19 Rate Blood Pressure 139/70 140/63 O2 Sat by Pulse 98 99 Oximetry 11/23/19 11/23/19 11/23/19 00:00 00:01 00:15 Temperature Pulse Rate 67 62 Pulse Rate [ 64 Apical] Pulse Rate [ 64 From Monitor] Pulse Rate [ 64 Right Dorsalis Pedis] Respiratory 13 36 H 31 H Rate Blood Pressure 150/76 150/76 O2 Sat by Pulse 98 97 96 Oximetry 11/23/19 11/23/19 11/23/19 00:31 00:45 01:01 Temperature Pulse Rate 62 60 67 Pulse Rate [ Apical] Pulse Rate [ From Monitor] Pulse Rate [ Right Dorsalis Pedis] Respiratory 28 H 32 H 22 Rate Blood Pressure 150/76 150/76 148/123 O2 Sat by Pulse 98 97 98 Oximetry 11/23/19 11/23/19 11/23/19 01:15 01:31 01:45 Temperature Pulse Rate 60 67 Pulse Rate [ Apical] Pulse Rate [ From Monitor] Pulse Rate [ Right Dorsalis Pedis] Respiratory 18 19 22 Rate Blood Pressure 148/123 148/123 148/123 O2 Sat by Pulse 98 98 95 Oximetry 11/23/19 11/23/19 11/23/19 02:00 02:01 02:15 Temperature Pulse Rate 62 64 Pulse Rate [ 64 Apical] Pulse Rate [ 64 From Monitor] Pulse Rate [ 64 Right Dorsalis Pedis] Respiratory 12 14 12 Rate Blood Pressure 128/69 128/69 O2 Sat by Pulse 98 97 97 Oximetry 11/23/19 11/23/19 11/23/19 02:31 02:45 03:00 Temperature Pulse Rate 75 62 62 Pulse Rate [ Apical] Pulse Rate [ From Monitor] Pulse Rate [ Right Dorsalis Pedis] Respiratory 18 16 17 Rate Blood Pressure 128/69 128/69 128/69 O2 Sat by Pulse 96 97 97 Oximetry 11/23/19 11/23/19 11/23/19 03:15 03:31 03:45 Temperature Pulse Rate 62 58 L 63 Pulse Rate [ Apical] Pulse Rate [ From Monitor] Pulse Rate [ Right Dorsalis Pedis] Respiratory 18 18 17 Rate Blood Pressure 139/84 139/84 139/84 O2 Sat by Pulse 98 95 98 Oximetry 11/23/19 11/23/19 11/23/19 04:00 04:01 04:15 Temperature Pulse Rate 68 Pulse Rate [ 72 Apical] Pulse Rate [ 72 From Monitor] Pulse Rate [ 72 Right Dorsalis Pedis] Respiratory 14 29 H 19 Rate Blood Pressure 147/66 147/66 O2 Sat by Pulse 98 98 98 Oximetry 11/23/19 11/23/19 11/23/19 04:31 04:45 05:00 Temperature Pulse Rate 62 61 84 Pulse Rate [ Apical] Pulse Rate [ From Monitor] Pulse Rate [ Right Dorsalis Pedis] Respiratory 19 18 17 Rate Blood Pressure 147/66 147/66 140/87 O2 Sat by Pulse 99 97 97 Oximetry 11/23/19 11/23/19 11/23/19 05:15 05:31 05:44 Temperature 97.7 F Pulse Rate 81 60 Pulse Rate [ Apical] Pulse Rate [ From Monitor] Pulse Rate [ Right Dorsalis Pedis] Respiratory 27 H 17 Rate Blood Pressure 140/87 140/87 O2 Sat by Pulse 97 97 Oximetry 11/23/19 11/23/19 11/23/19 05:45 06:00 06:15 Temperature Pulse Rate 61 60 61 Pulse Rate [ Apical] Pulse Rate [ From Monitor] Pulse Rate [ Right Dorsalis Pedis] Respiratory 17 15 17 Rate Blood Pressure 140/87 139/86 139/86 O2 Sat by Pulse 98 97 97 Oximetry 11/23/19 11/23/19 11/23/19 06:31 06:45 07:00 Temperature Pulse Rate 63 63 59 L Pulse Rate [ Apical] Pulse Rate [ From Monitor] Pulse Rate [ Right Dorsalis Pedis] Respiratory 17 15 15 Rate Blood Pressure 139/86 139/86 161/87 O2 Sat by Pulse 97 97 98 Oximetry 11/23/19 11/23/19 11/23/19 07:15 07:31 07:45 Temperature Pulse Rate 61 62 Pulse Rate [ Apical] Pulse Rate [ From Monitor] Pulse Rate [ Right Dorsalis Pedis] Respiratory 18 16 16 Rate Blood Pressure 161/87 161/87 161/87 O2 Sat by Pulse 98 98 98 Oximetry 11/23/19 11/23/19 11/23/19 07:58 08:00 08:15 Temperature 98.5 F Pulse Rate 85 57 L Pulse Rate [ 65 Apical] Pulse Rate [ 65 From Monitor] Pulse Rate [ Right Dorsalis Pedis] Respiratory 32 H 21 Rate Blood Pressure 162/97 162/97 O2 Sat by Pulse 92 94 Oximetry 11/23/19 11/23/19 08:31 08:45 Temperature Pulse Rate 101 H 60 Pulse Rate [ Apical] Pulse Rate [ From Monitor] Pulse Rate [ Right Dorsalis Pedis] Respiratory 19 13 Rate Blood Pressure 162/97 162/97 O2 Sat by Pulse 95 96 Oximetry Constitutional: lethargic, other (young obese AAM, normocephalic riding the set rate on MVS at rest) Eyes: non-icteric ENT: oropharynx moist, other (ETT 24 cm Alejandra) Neck: supple, no lymphadenopathy, no JVD, other (large neck circumference) Effort: normal Ascultation: Bilateral: diminished breath sounds, rhonchi Percussion: Bilateral: not dull Cardiovascular: regular rate and rhythm Gastrointestinal: normoactive bowel sounds, soft, non-tender, non-distended Integumentary: normal Extremities: no cyanosis, no edema, pulses normal, no ischemia or petechiae Neurologic: non-focal exam (grossly), pupils equal and round, motor strength normal and Psychiatric: other (unable to assess re: AMS) CBC and BMP: 11/23/19 04:35 11/23/19 04:35 ABG, PT/INR, D-dimer: ABG POC ABG pH 7.321 (7.35-7.45) L 11/21/19 20:45 ABG pH 7.168 pH Units (7.350-7.450) L* 11/19/19 04:20 POC ABG pCO2 60.5 (35-45) H 11/21/19 20:45 ABG pCO2 52.1 mm Hg 11/19/19 04:20 POC ABG pO2 74 (80-105) L 11/21/19 20:45 ABG pO2 51.2 mm Hg (80.0-90.0) L 11/19/19 04:20 POC ABG HCO3 31.2 (22-26 mml/L) 11/21/19 20:45 POC ABG Total CO2 33 (23-27mmol/L) 11/21/19 20:45 POC ABG O2 Sat 93 11/21/19 20:45 ABG O2 Saturation 76.7 % (95.0-99.0) L 11/19/19 04:20 PT/INR, D-dimer PT 15.7 Sec. (12.2-14.9) H 11/19/19 04:21 INR 1.23 (0.87-1.13) H 11/19/19 04:21 Abnormal lab findings: Abnormal Labs 11/19/19 11/19/19 11/19/19 04:20 04:21 04:21 WBC 11.2 H RBC 5.20 H Hgb Hct MCV 81 L MCH 26 L Lymph % (Auto) [place] % (Auto) Lymph # [place] # Seg Neutrophils % 79.0 H Seg Neutrophils # 8.9 H PT 15.7 H INR 1.23 H POC ABG pH ABG pH 7.168 L* POC ABG pCO2 POC ABG pO2 ABG pO2 51.2 L ABG HCO3 18.5 L ABG O2 Saturation 76.7 L ABG Base Excess -10.2 L ABG Hemoglobin 13.5 L Oxyhemoglobin 75.0 L Sodium Potassium Chloride Carbon Dioxide BUN Creatinine Glucose Uric Acid Calcium Total Creatine Kinase Urine WBC (Auto) Urine Creatinine Salicylates Acetaminophen 11/19/19 11/19/19 11/19/19 04:21 04:56 04:56 WBC RBC Hgb Hct MCV MCH Lymph % (Auto) [place] % (Auto) Lymph # [place] # Seg Neutrophils % Seg Neutrophils # PT INR POC ABG pH ABG pH POC ABG pCO2 POC ABG pO2 ABG pO2 ABG HCO3 ABG O2 Saturation ABG Base Excess ABG Hemoglobin Oxyhemoglobin Sodium 136 L Potassium 5.5 H Chloride 96.6 L Carbon Dioxide 18 L BUN 21 H Creatinine 2.2 H Glucose 393 H Uric Acid Calcium Total Creatine Kinase 392 H Urine WBC (Auto) Urine Creatinine Salicylates < 0.3 L Acetaminophen < 5.0 L 11/19/19 11/19/19 11/19/19 06:29 09:04 12:42 WBC RBC Hgb Hct MCV MCH Lymph % (Auto) [place] % (Auto) Lymph # [place] # Seg Neutrophils % Seg Neutrophils # PT INR POC ABG pH 7.208 L 7.186 L 7.205 L ABG pH POC ABG pCO2 57.1 H 66.6 H 62.8 H POC ABG pO2 59 L 58 L ABG pO2 ABG HCO3 ABG O2 Saturation ABG Base Excess ABG Hemoglobin Oxyhemoglobin Sodium Potassium Chloride Carbon Dioxide BUN Creatinine Glucose Uric Acid Calcium Total Creatine Kinase Urine WBC (Auto) Urine Creatinine Salicylates Acetaminophen 11/19/19 11/19/19 11/19/19 12:57 17:59 22:00 WBC RBC Hgb Hct MCV MCH Lymph % (Auto) [place] % (Auto) Lymph # [place] # Seg Neutrophils % Seg Neutrophils # PT INR POC ABG pH 7.204 L 7.180 L ABG pH POC ABG pCO2 66.2 H 68.5 H POC ABG pO2 68 L ABG pO2 ABG HCO3 ABG O2 Saturation ABG Base Excess ABG Hemoglobin Oxyhemoglobin Sodium 135 L Potassium 8.5 H* D Chloride Carbon Dioxide 18 L BUN 40 H Creatinine 3.5 H D Glucose 127 H Uric Acid 10.2 H Calcium 8.0 L Total Creatine Kinase Urine WBC (Auto) Urine Creatinine Salicylates Acetaminophen 11/19/19 11/19/19 11/20/19 22:49 Unknown 05:57 WBC 15.1 H RBC Hgb 11.5 L Hct 35.1 L D MCV 80 L MCH 26 L Lymph % (Auto) 5.0 L [place] % (Auto) 9.0 H Lymph # 0.8 L [place] # 1.4 H Seg Neutrophils % 85.7 H Seg Neutrophils # 13.0 H PT INR POC ABG pH ABG pH POC ABG pCO2 POC ABG pO2 ABG pO2 ABG HCO3 ABG O2 Saturation ABG Base Excess ABG Hemoglobin Oxyhemoglobin Sodium Potassium 8.6 H* Chloride Carbon Dioxide BUN Creatinine Glucose Uric Acid Calcium Total Creatine Kinase 396 H Urine WBC (Auto) Urine Creatinine Salicylates Acetaminophen 11/20/19 11/20/19 11/20/19 05:57 06:05 08:07 WBC RBC Hgb Hct MCV MCH Lymph % (Auto) [place] % (Auto) Lymph # [place] # Seg Neutrophils % Seg Neutrophils # PT INR POC ABG pH 7.312 L ABG pH POC ABG pCO2 57.9 H POC ABG pO2 ABG pO2 ABG HCO3 ABG O2 Saturation ABG Base Excess ABG Hemoglobin Oxyhemoglobin Sodium Potassium Chloride Carbon Dioxide BUN 25 H Creatinine 2.6 H Glucose 120 H Uric Acid Calcium 8.0 L Total Creatine Kinase Urine WBC (Auto) 9.0 H Urine Creatinine Salicylates Acetaminophen 11/20/19 11/20/19 11/21/19 08:07 18:38 04:44 WBC RBC Hgb Hct MCV MCH Lymph % (Auto) [place] % (Auto) Lymph # [place] # Seg Neutrophils % Seg Neutrophils # PT INR POC ABG pH 7.291 L ABG pH POC ABG pCO2 65.9 H POC ABG pO2 77 L ABG pO2 ABG HCO3 ABG O2 Saturation ABG Base Excess ABG Hemoglobin Oxyhemoglobin Sodium Potassium Chloride Carbon Dioxide BUN 24 H Creatinine 1.7 H Glucose Uric Acid Calcium Total Creatine Kinase Urine WBC (Auto) Urine Creatinine 170.7 H Salicylates Acetaminophen 11/21/19 11/21/19 11/21/19 09:54 14:36 20:45 WBC RBC Hgb Hct MCV MCH Lymph % (Auto) [place] % (Auto) Lymph # [place] # Seg Neutrophils % Seg Neutrophils # PT INR POC ABG pH 7.485 H 7.321 L ABG pH POC ABG pCO2 60.5 H POC ABG pO2 74 L ABG pO2 ABG HCO3 ABG O2 Saturation ABG Base Excess ABG Hemoglobin Oxyhemoglobin Sodium 146 H Potassium Chloride 107.3 H Carbon Dioxide BUN Creatinine Glucose Uric Acid Calcium Total Creatine Kinase Urine WBC (Auto) Urine Creatinine Salicylates Acetaminophen 11/23/19 04:35 WBC RBC Hgb 11.6 L Hct 35.2 L MCV 78 L MCH 26 L Lymph % (Auto) 11.5 L [place] % (Auto) 8.5 H Lymph # [place] # 0.9 H Seg Neutrophils % 78.2 H Seg Neutrophils # 8.0 H PT INR POC ABG pH ABG pH POC ABG pCO2 POC ABG pO2 ABG pO2 ABG HCO3 ABG O2 Saturation ABG Base Excess ABG Hemoglobin Oxyhemoglobin Sodium Potassium Chloride Carbon Dioxide BUN Creatinine Glucose Uric Acid Calcium Total Creatine Kinase Urine WBC (Auto) Urine Creatinine Salicylates Acetaminophen Allied health notes reviewed: nursing
[2019-11-23] MEDS: FAMOTIDINE 20 MG TAB PO SCH ×2 (09:57→21:51)
[2019-11-23] MEDS: ENOXAPARIN 40 MG/0.4 ML INJ SUB-Q SCH (09:57)
[2019-11-23] MEDS: QUEtiapine 100 MG TAB PO SCH ×2 (09:57→21:51)
[2019-11-23] MEDS: amLODIPine 5 MG TAB PO SCH (12:38)
--- NOTE | 2019-11-23 13:19 | Progress Note ---
Assessment and Plan Assessment and plan: Acute hypoxemic hypercapnic respiratory failure. Patient is extubated. Continue BiPAP as clinically indicated. Pulmonary following. Opioid overdose. Psychiatric consultation. Acute kidney injury. Etiology likely secondary to ATN from hypotension from drug overdose. Patient required one dialysis treatment due to severe hyperkalemia, his urine output has markedly improved his electrolytes have been stable now. Nephrology does not believe that he needs any further dialysis Aspiration pneumonia. Continue antibiotics. Follow-up chest x-ray. Hyperkalemia. Etiology secondary to renal insufficiency. Hyperglycemia. Resolved. History Interval history: Patient on [place] Hospitalist Physical - Constitutional Vitals: Temp Pulse Resp BP Pulse Ox 97.9 F 66 18 112/66 96 11/23/19 12:00 11/23/19 12:38 11/23/19 12:00 11/23/19 12:38 11/23/19 12:01 General appearance: Present: no acute distress, well-nourished, other (Patient is orally intubated on mechanical ventilation.) - EENT Eyes: Present: PERRL, EOM intact ENT: hearing intact, clear oral mucosa, dentition normal - Neck Neck: Present: supple, normal ROM - Respiratory Respiratory effort: normal Respiratory: bilateral: CTA - Cardiovascular Rhythm: regular Heart Sounds: Present: S1 & S2. Absent: gallop, rub - Extremities Extremities: no ischemia, No edema, Full ROM - Abdominal General gastrointestinal: soft, non-tender, non-distended, normal bowel sounds - Integumentary Integumentary: Present: clear, warm, dry - Neurologic Neurologic: CNII-XII intact, moves all extremities Results - Labs CBC & Chem 7: 11/23/19 04:35 11/23/19 04:35 Labs: Laboratory Last Values WBC 10.3 K/mm3 (4.5-11.0) 11/23/19 04:35 RBC 4.52 M/mm3 (3.65-5.03) 11/23/19 04:35 Hgb 11.6 gm/dl (11.8-15.2) L 11/23/19 04:35 Hct 35.2 % (35.5-45.6) L 11/23/19 04:35 MCV 78 fl (84-94) L 11/23/19 04:35 MCH 26 pg (28-32) L 11/23/19 04:35 MCHC 33 % (32-34) 11/23/19 04:35 RDW 13.9 % (13.2-15.2) 11/23/19 04:35 Plt Count 338 K/mm3 (140-440) 11/23/19 04:35 Lymph % (Auto) 11.5 % (13.4-35.0) L 11/23/19 04:35 [place] % (Auto) 8.5 % (0.0-7.3) H 11/23/19 04:35 Eos % (Auto) 1.3 % (0.0-4.3) 11/23/19 04:35 Baso % (Auto) 0.5 % (0.0-1.8) 11/23/19 04:35 Lymph # 1.2 K/mm3 (1.2-5.4) 11/23/19 04:35 [place] # 0.9 K/mm3 (0.0-0.8) H 11/23/19 04:35 Eos # 0.1 K/mm3 (0.0-0.4) 11/23/19 04:35 Baso # 0.0 K/mm3 (0.0-0.1) 11/23/19 04:35 Seg Neutrophils % 78.2 % (40.0-70.0) H 11/23/19 04:35 Seg Neutrophils # 8.0 K/mm3 (1.8-7.7) H 11/23/19 04:35 PT 15.7 Sec. (12.2-14.9) H 11/19/19 04:21 INR 1.23 (0.87-1.13) H 11/19/19 04:21 POC ABG pH 7.321 (7.35-7.45) L 11/21/19 20:45 ABG pH 7.168 pH Units (7.350-7.450) L* 11/19/19 04:20 POC ABG pCO2 60.5 (35-45) H 11/21/19 20:45 ABG pCO2 52.1 mm Hg 11/19/19 04:20 POC ABG pO2 74 (80-105) L 11/21/19 20:45 ABG pO2 51.2 mm Hg (80.0-90.0) L 11/19/19 04:20 POC ABG HCO3 31.2 (22-26 mml/L) 11/21/19 20:45 ABG HCO3 18.5 mmol/L (20.0-26.0) L 11/19/19 04:20 POC ABG Total CO2 33 (23-27mmol/L) 11/21/19 20:45 POC ABG O2 Sat 93 11/21/19 20:45 ABG O2 Saturation 76.7 % (95.0-99.0) L 11/19/19 04:20 ABG O2 Content 14.3 (0.0-44) 11/19/19 04:20 POC ABG Base Excess 5 ((-2) - (+3)mmol/L) 11/21/19 20:45 ABG Base Excess -10.2 mmol/L (-2.0-3.0) L 11/19/19 04:20 ABG Hemoglobin 13.5 gm/dl (14.0-18.0) L 11/19/19 04:20 ABG Carboxyhemoglobin 1.6 % (0.0-5.0) 11/19/19 04:20 ABG Methemoglobin 0.6 % (0.0-1.5) 11/19/19 04:20 Oxyhemoglobin 75.0 % (95.0-99.0) L 11/19/19 04:20 FiO2 100 % 11/21/19 20:45 Sodium 144 mmol/L (137-145) 11/23/19 04:35 Potassium 3.9 mmol/L (3.6-5.0) 11/23/19 04:35 Chloride 105.5 mmol/L (98-107) 11/23/19 04:35 Carbon Dioxide 22 mmol/L (22-30) D 11/23/19 04:35 Anion Gap 20 mmol/L 11/23/19 04:35 BUN 16 mg/dL (9-20) 11/23/19 04:35 Creatinine 1.3 mg/dL (0.8-1.5) 11/23/19 04:35 Estimated GFR > 60 ml/min 11/23/19 04:35 BUN/Creatinine Ratio 12 % 11/23/19 04:35 Glucose 77 mg/dL (75-100) 11/23/19 04:35 Osmolality 300 Mosm/kg 11/19/19 22:00 Uric Acid 10.2 mg/dL (3.5-7.6) H 11/19/19 22:00 Calcium 9.2 mg/dL (8.4-10.2) 11/23/19 04:35 Total Bilirubin < 0.20 mg/dL (0.1-1.2) 11/19/19 04:21 AST 27 units/L (5-40) 11/19/19 04:21 ALT 32 units/L (7-56) 11/19/19 04:21 Alkaline Phosphatase 61 units/L (35-129) 11/19/19 04:21 Total Creatine Kinase 396 units/L (55-170) H 11/19/19 Unknown CK-MB (CK-2) 4.0 ng/mL (0.0-4.0) 11/19/19 04:21 CK-MB (CK-2) Rel Index 1.0 (0-4) 11/19/19 04:21 Troponin T < 0.010 ng/mL (0.00-0.029) 11/19/19 04:21 NT-Pro-B Natriuret Pep 55.89 pg/mL (0-450) 11/19/19 04:21 Total Protein 7.2 g/dL (6.3-8.2) 11/19/19 04:21 Albumin 4.6 g/dL (3.9-5) 11/19/19 04:21 Albumin/Globulin Ratio 1.8 % 11/19/19 04:21 Urine Color Yellow (Yellow) 11/20/19 08:07 Urine Turbidity Slightly-cloudy (Clear) 11/20/19 08:07 Urine pH 5.0 (5.0-7.0) 11/20/19 08:07 Ur Specific [place] 1.013 (1.003-1.030) 11/20/19 08:07 Urine Protein 30 mg/dl mg/dL (Negative) 11/20/19 08:07 Urine Glucose (UA) Neg mg/dL (Negative) 11/20/19 08:07 Urine Ketones Neg mg/dL (Negative) 11/20/19 08:07 Urine Blood Lg (Negative) 11/20/19 08:07 Urine Nitrite Neg (Negative) 11/20/19 08:07 Urine Bilirubin Neg (Negative) 11/20/19 08:07 Urine Urobilinogen < 2.0 mg/dL (<2.0) 11/20/19 08:07 Ur Leukocyte Esterase Neg (Negative) 11/20/19 08:07 Urine WBC (Auto) 9.0 /HPF (0.0-6.0) H 11/20/19 08:07 Urine RBC (Auto) 24.0 /HPF (0.0-6.0) 11/20/19 08:07 U Epithel Cells (Auto) 1.0 /HPF (0-13.0) 11/20/19 08:07 Urine Bacteria (Auto) 1+ /HPF (Negative) 11/20/19 08:07 Hyaline Casts 4 /LPF 11/20/19 08:07 Urine Mucus Few /HPF 11/20/19 08:07 Urine Creatinine 170.7 mg/dL (0.1-20.0) H 11/20/19 08:07 Urine Sodium 17 mmol/L 11/20/19 08:07 Salicylates < 0.3 mg/dL (2.8-20.0) L 11/19/19 04:56 Urine Opiates Screen Presumptive positive 11/19/19 Unknown Urine Methadone Screen Presumptive negative 11/19/19 Unknown Acetaminophen < 5.0 ug/mL (10.0-30.0) L 11/19/19 04:56 Ur Barbiturates Screen Presumptive negative 11/19/19 Unknown Ur Phencyclidine Scrn Presumptive negative 11/19/19 Unknown Ur Amphetamines Screen Presumptive negative 11/19/19 Unknown U Benzodiazepines Scrn Presumptive negative 11/19/19 Unknown Urine Cocaine Screen Presumptive negative 11/19/19 Unknown U Marijuana (THC) Screen Presumptive negative 11/19/19 Unknown Drugs of Abuse Note Disclamer 11/19/19 Unknown Plasma/Serum Alcohol < 0.01 % (0-0.07) 11/19/19 04:21 Hepatitis A IgM Ab Non-reactive (NonReactive) 11/20/19 02:20 Hep Bs Antigen Non-reactive (Negative) 11/20/19 02:20 Hep B Core IgM Ab Non-reactive (NonReactive) 11/20/19 02:20 Hepatitis C Antibody Non-reactive (NonReactive) 11/20/19 02:20 Active Medications - Current Medications Current Medications: Generic Name Dose Route Start Last Admin Trade Name Freq PRN Reason Stop Dose Admin Amlodipine Besylate 5 mg 11/23/19 11:00 11/23/19 12:38 Amlodipine PO 5 mg QDAY JAVED Administration Lipase/Protease/Amylase 1 each 11/21/19 11:31 Pancreaze 10,500 Unit FEEDTUBE PRN PRN For Clogged Feeding Tube Enoxaparin Sodium 40 mg 11/21/19 10:00 11/23/19 09:57 Enoxaparin SUB-Q 40 mg QDAY@1000 JAVED Administration Famotidine 20 mg 11/23/19 10:00 11/23/19 09:57 Pepcid PO 20 mg BID JAVED Administration Haloperidol Lactate 5 mg 11/21/19 21:18 11/21/19 22:16 Haldol IV 11/23/19 21:17 5 mg Q6H PRN Administration Agitation Haloperidol Lactate 5 mg 11/21/19 20:30 Haldol IM 11/23/19 20:29 Q6H PRN Agitation Hydrophilic Ointment 1 applic 11/19/19 04:42 Vaseline Lip Therapy TP Q2HR PRN Dry Lips Levofloxacin/Dextrose 500 mg in 100 mls @ 100 mls/hr 11/22/19 10:00 11/23/19 10:13 Levaquin 500mg/100ml IV 11/25/19 10:59 100 mls/hr Q24HR JAVED Administration Multi-Ingred Cream/Lotion/Oil/Oint 1 applic 11/19/19 04:42 Artificial Tears Ophth Oint OU Q4HR PRN Dry Eye(s) Quetiapine Fumarate 200 mg 11/21/19 22:00 11/23/19 09:57 Seroquel PO 200 mg BID JAVED Administration Simple Syrup 15 ml 11/21/19 11:31 Simple Syrup FEEDTUBE PRN PRN Hypoglycemia Simple Syrup 30 ml 11/21/19 11:31 Simple Syrup FEEDTUBE PRN PRN Hypoglycemia Sodium Bicarbonate 325 mg 11/21/19 11:31 Sodium Bicarbonate FEEDTUBE PRN PRN For Clogged Feeding Tube Sodium Chloride 10 ml 11/19/19 22:00 11/23/19 01:00 Sodium Chloride Flush Syringe 10 Ml IV 10 ml BID JAVED Administration Sodium Chloride 10 ml 11/19/19 12:43 Sodium Chloride Flush Syringe 10 Ml IV PRN PRN LINE FLUSH Nutrition/Malnutrition Assess - Dietary Evaluation Nutrition/Malnutrition Findings: Nutrition Notes Start: 11/19/19 12:57 Freq: Status: Active Protocol: Document 11/21/19 11:20 KS (Rec: 11/21/19 11:31 KS [id number]) Co-Sign 11/21/19 11:20 LP Nutrition Notes Initial or Follow up Reassessment Other Pertinent Diagnosis Opiod overdose, hyperkalemia, renal insufficiency Current Diet NPO Labs/Tests BUN 24 Cr 1.7 Pertinent Medications Reviewed Height 6 ft Weight 112.491 kg [place] Body Weight (kg) 80.90 BMI 33.6 Weight Status Obese Subjective/Other Information MD consult to write/manage TF. Burn Absent Trauma Absent Current % PO Negligible Minimum of two criteria No physical signs of malnutrition #1 Nutrition Diagnosis Inadequate oral intake Diagnosis Progress(for reassessment Continues documentation) Is patient on ventilator? Yes Is Patient Ambulatory and/or Out of Bed No REE-([facility]-confined to bed) 2495.892 Kcal/Kg value to use for calculation 18 Approximate Energy Requirements Using 2024 kcal/Kg Calculation Used for Recommendations Kcal/kg Additional Notes PRO: >162g (>2g IBW 80.9kg) Fluid: 1mL/kcal or per MD Nutrition Intervention Change Diet Order: TF start Nutrition Support: Nepro 1.8 at 50mL/hr Free water flush 200mL q4h. Kcal 2,106 Protein (gm) 97 Fluid (mL) 872 Goal #1 TF start Goal #2 TF tolerance Anticipated Discharge Needs: Unable to determine at this time Follow-Up By: 11/24/19 Additional Comments Follow for TF start/tolerance
--- NOTE | 2019-11-24 09:02 | XRay Report ---
CHEST 1 VIEW INDICATION: follow up respiratory failure. COMPARISON: 11/22/2019 FINDINGS: Support devices: None. Heart: Within normal limits. Lungs/Pleura: No acute air space or interstitial disease. Bibasilar atelectatic changes have resolved . Additional findings: None. IMPRESSION: No acute findings. Essentially unremarkable AP chest. Signer Name: Burt Lindsay Jr, MD Signed: 11/24/2019 8:58 AM Workstation Name: [id number]
[2019-11-24] MEDS: QUEtiapine 100 MG TAB PO SCH ×2 (09:50→22:08)
[2019-11-24] MEDS: FAMOTIDINE 20 MG TAB PO SCH ×2 (09:50→22:08)
[2019-11-24] MEDS: ENOXAPARIN 40 MG/0.4 ML INJ SUB-Q SCH (09:50)
[2019-11-24] MEDS: amLODIPine 5 MG TAB PO SCH (09:51)
--- NOTE | 2019-11-24 11:24 | Consultation ---
History of Present Illness - Reason for Consult Consult date: 11/24/19 Reason for consult: overdose - Chief Complaint Chief complaint: OD - History of Present Psychiatric Illness Daniel Wood is a 39y/o male patient who was admitted for hypotenstion, secondary to overdose. During my interview this morning, the patient is lying in bed. Awake. He is a/o x 3. He is dressed appropriately. He makes good eye contact. The patient is calm and cooperative. Mr. Wood states that he was "drinking and passed out." He says he "[place] the gas station when this happened." The patient also states he took "two adderalls that were given to him by his friend." He denies SI/HI now or ever in the past. He says he has never seen a psychiatrist or ever been diagnosed or hospitalized with any psychiatric disorders. He says he "sometimes does cocaine and marijuana." He also says he "drinks beer about twice weekly." The patient says he "feels good" and has no fear or feelings of endangerment. He denies hallucinations of any kind. PAST PSYCHIATRIC HISTORY: Diagnoses: Denies Suicide attempts or Self-harm behavior: denies Prior psychiatric hospitalizations:denies Substance Abuse history: Cocaine, THC, amphetamines Previous psychiatric medications tried: adderall not prescribed, states got from friend Outpatient treatment: no REVIEW OF SYSTEMS Constitutional: Negative for weight loss ENT: Negative for stridor Respiratory: Negative for cough All other systems reviewed and are negative PAST MEDICAL HISTORY: Denies any history, but says "I don't really go to the doctor." Family Psychiatric History None reported or documented SOCIAL HISTORY Marital Status: Single Living Arrangements: Lives with a friend Employment Status: Employed Access to guns/weapons: Denies Education: 2 years of college History of Abuse: Denies Legal History: Misdemeanors MSE Appearance: In bed. Appropriate clothing. Good eye contact. Behavior: calm and cooperative Mood: "feels good" Affect: consisted with mood Thought Process: Goal directed Speech: Normal tone and pace Thought Content Harmfulness Denies SI/HI Hallucinations: patient denies Delusions: none elicited Consciousness: Alert Cognition/Memory: Good Insight/Judgment: Fair Assessment: Polysubstance Abuse Disorder Treatment Plan No medications prescribed or ordered at this time Medical: Per primary team Disposition: The patient does not meet requirement for acute inpatient psychiatric hospitalization. May discharge home once medically clear. No alcohol, or elicit drug use Will sign off Please call with any questions or concerns. Thank you for this consult. Medications and Allergies Allergies Allergy/AdvReac Type Severity Reaction Status Date / Time No Known Allergies Allergy Verified 11/19/19 05:44 Home Medications Medication Instructions Recorded Confirmed Last Taken Type No Known Home Medications [No 11/19/19 11/19/19 Unknown History Reported Home Medications] Active Meds: Active Medications Amlodipine Besylate (Amlodipine) 5 mg PO QDAY [facility] Last Admin: 11/24/19 09:51 Dose: 5 mg Documented by: Lipase/Protease/Amylase (Pancremicky Raymond 10,500 Unit) 1 each FEEDTUBE PRN PRN PRN Reason: For Clogged Feeding Tube Enoxaparin Sodium (Enoxaparin) 40 mg SUB-Q QDAY@1000 [facility] Last Admin: 11/24/19 09:50 Dose: 40 mg Documented by: Famotidine (Pepcid) 20 mg PO BID [facility] Last Admin: 11/24/19 09:50 Dose: 20 mg Documented by: Hydrophilic Ointment (Vaseline Lip Therapy) 1 applic TP Q2HR PRN PRN Reason: Dry Lips Levofloxacin/Dextrose (Levaquin 500mg/100ml) 500 mg in 100 mls @ 100 mls/hr IV Q24HR [facility] Stop: 11/25/19 10:59 Last Admin: 11/24/19 09:50 Dose: 100 mls/hr Documented by: Multi-Ingred Cream/Lotion/Oil/Oint (Artificial Tears Ophth Oint) 1 applic OU Q4HR PRN PRN Reason: Dry Eye(s) Quetiapine Fumarate (Seroquel) 200 mg PO BID [facility] Last Admin: 11/24/19 09:50 Dose: 200 mg Documented by: Simple Syrup (Simple Syrup) 15 ml FEEDTUBE PRN PRN PRN Reason: Hypoglycemia Simple Syrup (Simple Syrup) 30 ml FEEDTUBE PRN PRN PRN Reason: Hypoglycemia Sodium Bicarbonate (Sodium Bicarbonate) 325 mg FEEDTUBE PRN PRN PRN Reason: For Clogged Feeding Tube Sodium Chloride (Sodium Chloride Flush Syringe 10 Ml) 10 ml IV BID [facility] Last Admin: 11/23/19 21:51 Dose: 10 ml Documented by: Sodium Chloride (Sodium Chloride Flush Syringe 10 Ml) 10 ml IV PRN PRN PRN Reason: LINE FLUSH Mental Status Exam - Vital signs Last Vital Signs Temp 97.9 F 11/24/19 04:20 Pulse 60 11/24/19 09:51 Resp 20 11/24/19 04:20 BP 129/81 11/24/19 09:51 Pulse Ox 93 11/24/19 07:40 Results Result Diagrams: 11/23/19 04:35 11/23/19 04:35 All other labs normal.
--- NOTE | 2019-11-24 11:30 | Progress Note ---
Assessment and Plan Assessment and plan: Acute hypoxemic hypercapnic respiratory failure. Improved. Patient currently on 3 L nasal cannula. Pulmonary following. Opioid overdose. Psychiatric consultation pending. Acute kidney injury. Etiology likely secondary to ATN from hypotension from drug overdose. Patient required one dialysis treatment due to severe hyperkalemia, his urine output has markedly improved his electrolytes have been stable now. Nephrology does not believe that he needs any further dialysis. Follow-up BMP Aspiration pneumonia. Continue antibiotics. Hyperkalemia. Etiology secondary to renal insufficiency. Hyperglycemia. Resolved. Disposition. Anticipate discharge in a.m. if okay with psych History Interval history: Patient on HFNC Hospitalist Physical - Constitutional Vitals: Temp Pulse Resp BP Pulse Ox 97.9 F 60 20 129/81 93 11/24/19 04:20 11/24/19 09:51 11/24/19 04:20 11/24/19 09:51 11/24/19 07:40 General appearance: Present: no acute distress, well-nourished, other (Patient is orally intubated on mechanical ventilation.) - EENT Eyes: Present: PERRL, EOM intact ENT: hearing intact, clear oral mucosa, dentition normal - Neck Neck: Present: supple, normal ROM - Respiratory Respiratory effort: normal Respiratory: bilateral: CTA - Cardiovascular Rhythm: regular Heart Sounds: Present: S1 & S2. Absent: gallop, rub - Extremities Extremities: no ischemia, No edema, Full ROM - Abdominal General gastrointestinal: soft, non-tender, non-distended, normal bowel sounds - Integumentary Integumentary: Present: clear, warm, dry - Neurologic Neurologic: CNII-XII intact, moves all extremities Results - Labs CBC & Chem 7: 11/23/19 04:35 11/23/19 04:35 Labs: Laboratory Last Values WBC 10.3 K/mm3 (4.5-11.0) 11/23/19 04:35 RBC 4.52 M/mm3 (3.65-5.03) 11/23/19 04:35 Hgb 11.6 gm/dl (11.8-15.2) L 11/23/19 04:35 Hct 35.2 % (35.5-45.6) L 11/23/19 04:35 MCV 78 fl (84-94) L 11/23/19 04:35 MCH 26 pg (28-32) L 11/23/19 04:35 MCHC 33 % (32-34) 11/23/19 04:35 RDW 13.9 % (13.2-15.2) 11/23/19 04:35 Plt Count 338 K/mm3 (140-440) 11/23/19 04:35 Lymph % (Auto) 11.5 % (13.4-35.0) L 11/23/19 04:35 [place] % (Auto) 8.5 % (0.0-7.3) H 11/23/19 04:35 Eos % (Auto) 1.3 % (0.0-4.3) 11/23/19 04:35 Baso % (Auto) 0.5 % (0.0-1.8) 11/23/19 04:35 Lymph # 1.2 K/mm3 (1.2-5.4) 11/23/19 04:35 [place] # 0.9 K/mm3 (0.0-0.8) H 11/23/19 04:35 Eos # 0.1 K/mm3 (0.0-0.4) 11/23/19 04:35 Baso # 0.0 K/mm3 (0.0-0.1) 11/23/19 04:35 Seg Neutrophils % 78.2 % (40.0-70.0) H 11/23/19 04:35 Seg Neutrophils # 8.0 K/mm3 (1.8-7.7) H 11/23/19 04:35 PT 15.7 Sec. (12.2-14.9) H 11/19/19 04:21 INR 1.23 (0.87-1.13) H 11/19/19 04:21 POC ABG pH 7.321 (7.35-7.45) L 11/21/19 20:45 ABG pH 7.168 pH Units (7.350-7.450) L* 11/19/19 04:20 POC ABG pCO2 60.5 (35-45) H 11/21/19 20:45 ABG pCO2 52.1 mm Hg 11/19/19 04:20 POC ABG pO2 74 (80-105) L 11/21/19 20:45 ABG pO2 51.2 mm Hg (80.0-90.0) L 11/19/19 04:20 POC ABG HCO3 31.2 (22-26 mml/L) 11/21/19 20:45 ABG HCO3 18.5 mmol/L (20.0-26.0) L 11/19/19 04:20 POC ABG Total CO2 33 (23-27mmol/L) 11/21/19 20:45 POC ABG O2 Sat 93 11/21/19 20:45 ABG O2 Saturation 76.7 % (95.0-99.0) L 11/19/19 04:20 ABG O2 Content 14.3 (0.0-44) 11/19/19 04:20 POC ABG Base Excess 5 ((-2) - (+3)mmol/L) 11/21/19 20:45 ABG Base Excess -10.2 mmol/L (-2.0-3.0) L 11/19/19 04:20 ABG Hemoglobin 13.5 gm/dl (14.0-18.0) L 11/19/19 04:20 ABG Carboxyhemoglobin 1.6 % (0.0-5.0) 11/19/19 04:20 ABG Methemoglobin 0.6 % (0.0-1.5) 11/19/19 04:20 Oxyhemoglobin 75.0 % (95.0-99.0) L 11/19/19 04:20 FiO2 100 % 11/21/19 20:45 Sodium 144 mmol/L (137-145) 11/23/19 04:35 Potassium 3.9 mmol/L (3.6-5.0) 11/23/19 04:35 Chloride 105.5 mmol/L (98-107) 11/23/19 04:35 Carbon Dioxide 22 mmol/L (22-30) D 11/23/19 04:35 Anion Gap 20 mmol/L 11/23/19 04:35 BUN 16 mg/dL (9-20) 11/23/19 04:35 Creatinine 1.3 mg/dL (0.8-1.5) 11/23/19 04:35 Estimated GFR > 60 ml/min 11/23/19 04:35 BUN/Creatinine Ratio 12 % 11/23/19 04:35 Glucose 77 mg/dL (75-100) 11/23/19 04:35 Osmolality 300 Mosm/kg 11/19/19 22:00 Uric Acid 10.2 mg/dL (3.5-7.6) H 11/19/19 22:00 Calcium 9.2 mg/dL (8.4-10.2) 11/23/19 04:35 Total Bilirubin < 0.20 mg/dL (0.1-1.2) 11/19/19 04:21 AST 27 units/L (5-40) 11/19/19 04:21 ALT 32 units/L (7-56) 11/19/19 04:21 Alkaline Phosphatase 61 units/L (35-129) 11/19/19 04:21 Total Creatine Kinase 396 units/L (55-170) H 11/19/19 Unknown CK-MB (CK-2) 4.0 ng/mL (0.0-4.0) 11/19/19 04:21 CK-MB (CK-2) Rel Index 1.0 (0-4) 11/19/19 04:21 Troponin T < 0.010 ng/mL (0.00-0.029) 11/19/19 04:21 NT-Pro-B Natriuret Pep 55.89 pg/mL (0-450) 11/19/19 04:21 Total Protein 7.2 g/dL (6.3-8.2) 11/19/19 04:21 Albumin 4.6 g/dL (3.9-5) 11/19/19 04:21 Albumin/Globulin Ratio 1.8 % 11/19/19 04:21 Urine Color Yellow (Yellow) 11/20/19 08:07 Urine Turbidity Slightly-cloudy (Clear) 11/20/19 08:07 Urine pH 5.0 (5.0-7.0) 11/20/19 08:07 Ur Specific [place] 1.013 (1.003-1.030) 11/20/19 08:07 Urine Protein 30 mg/dl mg/dL (Negative) 11/20/19 08:07 Urine Glucose (UA) Neg mg/dL (Negative) 11/20/19 08:07 Urine Ketones Neg mg/dL (Negative) 11/20/19 08:07 Urine Blood Lg (Negative) 11/20/19 08:07 Urine Nitrite Neg (Negative) 11/20/19 08:07 Urine Bilirubin Neg (Negative) 11/20/19 08:07 Urine Urobilinogen < 2.0 mg/dL (<2.0) 11/20/19 08:07 Ur Leukocyte Esterase Neg (Negative) 11/20/19 08:07 Urine WBC (Auto) 9.0 /HPF (0.0-6.0) H 11/20/19 08:07 Urine RBC (Auto) 24.0 /HPF (0.0-6.0) 11/20/19 08:07 U Epithel Cells (Auto) 1.0 /HPF (0-13.0) 11/20/19 08:07 Urine Bacteria (Auto) 1+ /HPF (Negative) 11/20/19 08:07 Hyaline Casts 4 /LPF 11/20/19 08:07 Urine Mucus Few /HPF 11/20/19 08:07 Urine Creatinine 170.7 mg/dL (0.1-20.0) H 11/20/19 08:07 Urine Sodium 17 mmol/L 11/20/19 08:07 Salicylates < 0.3 mg/dL (2.8-20.0) L 11/19/19 04:56 Urine Opiates Screen Presumptive positive 11/19/19 Unknown Urine Methadone Screen Presumptive negative 11/19/19 Unknown Acetaminophen < 5.0 ug/mL (10.0-30.0) L 11/19/19 04:56 Ur Barbiturates Screen Presumptive negative 11/19/19 Unknown Ur Phencyclidine Scrn Presumptive negative 11/19/19 Unknown Ur Amphetamines Screen Presumptive negative 11/19/19 Unknown U Benzodiazepines Scrn Presumptive negative 11/19/19 Unknown Urine Cocaine Screen Presumptive negative 11/19/19 Unknown U Marijuana (THC) Screen Presumptive negative 11/19/19 Unknown Drugs of Abuse Note Disclamer 11/19/19 Unknown Plasma/Serum Alcohol < 0.01 % (0-0.07) 11/19/19 04:21 Hepatitis A IgM Ab Non-reactive (NonReactive) 11/20/19 02:20 Hep Bs Antigen Non-reactive (Negative) 11/20/19 02:20 Hep B Core IgM Ab Non-reactive (NonReactive) 11/20/19 02:20 Hepatitis C Antibody Non-reactive (NonReactive) 11/20/19 02:20 Active Medications - Current Medications Current Medications: Generic Name Dose Route Start Last Admin Trade Name Freq PRN Reason Stop Dose Admin Amlodipine Besylate 5 mg 11/23/19 11:00 11/24/19 09:51 Amlodipine PO 5 mg QDAY JAVED Administration Lipase/Protease/Amylase 1 each 11/21/19 11:31 Pancremicky Raymond 10,500 Unit FEEDTUBE PRN PRN For Clogged Feeding Tube Enoxaparin Sodium 40 mg 11/21/19 10:00 11/24/19 09:50 Enoxaparin SUB-Q 40 mg QDAY@1000 JAVED Administration Famotidine 20 mg 11/23/19 10:00 11/24/19 09:50 Pepcid PO 20 mg BID JAVED Administration Hydrophilic Ointment 1 applic 11/19/19 04:42 Vaseline Lip Therapy TP Q2HR PRN Dry Lips Levofloxacin/Dextrose 500 mg in 100 mls @ 100 mls/hr 11/22/19 10:00 11/24/19 09:50 Levaquin 500mg/100ml IV 11/25/19 10:59 100 mls/hr Q24HR JAVED Administration Multi-Ingred Cream/Lotion/Oil/Oint 1 applic 11/19/19 04:42 Artificial Tears Ophth Oint OU Q4HR PRN Dry Eye(s) Quetiapine Fumarate 200 mg 11/21/19 22:00 11/24/19 09:50 Seroquel PO 200 mg BID JAVED Administration Simple Syrup 15 ml 11/21/19 11:31 Simple Syrup FEEDTUBE PRN PRN Hypoglycemia Simple Syrup 30 ml 11/21/19 11:31 Simple Syrup FEEDTUBE PRN PRN Hypoglycemia Sodium Bicarbonate 325 mg 11/21/19 11:31 Sodium Bicarbonate FEEDTUBE PRN PRN For Clogged Feeding Tube Sodium Chloride 10 ml 11/19/19 22:00 11/23/19 21:51 Sodium Chloride Flush Syringe 10 Ml IV 10 ml BID JAVED Administration Sodium Chloride 10 ml 11/19/19 12:43 Sodium Chloride Flush Syringe 10 Ml IV PRN PRN LINE FLUSH Nutrition/Malnutrition Assess - Dietary Evaluation Nutrition/Malnutrition Findings: Nutrition Notes Start: 11/19/19 12:57 Freq: Status: Active Protocol: Document 11/21/19 11:20 KS (Rec: 11/21/19 11:31 KS [id number]) Co-Sign 11/21/19 11:20 LP Nutrition Notes Initial or Follow up Reassessment Other Pertinent Diagnosis Opiod overdose, hyperkalemia, renal insufficiency Current Diet NPO Labs/Tests BUN 24 Cr 1.7 Pertinent Medications Reviewed Height 6 ft Weight 112.491 kg [place] Body Weight (kg) 80.90 BMI 33.6 Weight Status Obese Subjective/Other Information MD consult to write/manage TF. Burn Absent Trauma Absent Current % PO Negligible Minimum of two criteria No physical signs of malnutrition #1 Nutrition Diagnosis Inadequate oral intake Diagnosis Progress(for reassessment Continues documentation) Is patient on ventilator? Yes Is Patient Ambulatory and/or Out of Bed No REE-([facility]-confined to bed) 2495.892 Kcal/Kg value to use for calculation 18 Approximate Energy Requirements Using 2024 kcal/Kg Calculation Used for Recommendations Kcal/kg Additional Notes PRO: >162g (>2g IBW 80.9kg) Fluid: 1mL/kcal or per MD Nutrition Intervention Change Diet Order: TF start Nutrition Support: Nepro 1.8 at 50mL/hr Free water flush 200mL q4h. Kcal 2,106 Protein (gm) 97 Fluid (mL) 872 Goal #1 TF start Goal #2 TF tolerance Anticipated Discharge Needs: Unable to determine at this time Follow-Up By: 11/24/19 Additional Comments Follow for TF start/tolerance
--- NOTE | 2019-11-24 14:55 | Progress Note ---
Assessment and Plan Patient is awake, alert, & endorses cough. Patient is on 3L O2 via nasal canula with O2 saturation 96%. Patient is afebrile with no leukocytosis. 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 Chest X-ray Reported 11/24/2019 No acute findings. Essentially unremarkable AP chest. - Patient Problems (1) Overdose Current Visit: Yes Status: Acute Plan to address problem: Management as per primary care (2) Pneumonia Current Visit: Yes Status: Acute Plan to address problem: 1. On 3L O2 via nasal canula 2. Albuterol/Atrovent aerosol treatments q6 3. Patient is on levaquin. (3) Respiratory failure Current Visit: Yes Status: Acute Plan to address problem: 1. Improved. On 3L O2 via nasal canula and o2 saturation 96% 2. Albuterol/Atrovent aerosol treatments q6 3. Continue Levaquin 4. Continue S/C Lovenox. 5. Continue Famotidine. Subjective Date of service: 11/24/19 Principal diagnosis: Acute Respiratory Failure on MVS; Acute Toxic/Metabolic Encephalopathy Interval history: Patient is awake, alert, & endorses cough. Patient is on 3L O2 via nasal canula with O2 saturation 96%. Patient is afebrile with no leukocytosis. 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 Chest X-ray Reported 11/24/2019 No acute findings. Essentially unremarkable AP chest. Objective Vital Signs - 12hr 11/24/19 11/24/19 11/24/19 04:20 07:40 09:51 Temperature 97.9 F Pulse Rate 83 60 Respiratory 20 Rate Blood Pressure 130/68 129/81 O2 Sat by Pulse 88 93 Oximetry 11/24/19 11:56 Temperature 97.9 F Pulse Rate 79 Respiratory 20 Rate Blood Pressure 125/84 O2 Sat by Pulse 96 Oximetry Constitutional: no acute distress, alert, other (young obese AAM, normocephalic riding the set rate on MVS at rest) Eyes: non-icteric ENT: oropharynx moist, other (ETT 24 cm Alejandra) Neck: supple, no lymphadenopathy, no JVD, other (large neck circumference) Effort: normal Ascultation: Bilateral: diminished breath sounds, rhonchi Percussion: Bilateral: not dull Cardiovascular: regular rate and rhythm Gastrointestinal: normoactive bowel sounds, soft, non-tender, non-distended Integumentary: normal Extremities: no cyanosis, no edema, pulses normal, no ischemia or petechiae Neurologic: non-focal exam (grossly), pupils equal and round, motor strength normal and Psychiatric: mood appropriate, affect normal CBC and BMP: 11/23/19 04:35 11/23/19 04:35 ABG, PT/INR, D-dimer: ABG POC ABG pH 7.321 (7.35-7.45) L 11/21/19 20:45 ABG pH 7.168 pH Units (7.350-7.450) L* 11/19/19 04:20 POC ABG pCO2 60.5 (35-45) H 11/21/19 20:45 ABG pCO2 52.1 mm Hg 11/19/19 04:20 POC ABG pO2 74 (80-105) L 11/21/19 20:45 ABG pO2 51.2 mm Hg (80.0-90.0) L 11/19/19 04:20 POC ABG HCO3 31.2 (22-26 mml/L) 11/21/19 20:45 POC ABG Total CO2 33 (23-27mmol/L) 11/21/19 20:45 POC ABG O2 Sat 93 11/21/19 20:45 ABG O2 Saturation 76.7 % (95.0-99.0) L 11/19/19 04:20 PT/INR, D-dimer PT 15.7 Sec. (12.2-14.9) H 11/19/19 04:21 INR 1.23 (0.87-1.13) H 11/19/19 04:21 Abnormal lab findings: Abnormal Labs 11/19/19 11/19/19 11/19/19 04:20 04:21 04:21 WBC 11.2 H RBC 5.20 H Hgb Hct MCV 81 L MCH 26 L Lymph % (Auto) [place] % (Auto) Lymph # [place] # Seg Neutrophils % 79.0 H Seg Neutrophils # 8.9 H PT 15.7 H INR 1.23 H POC ABG pH ABG pH 7.168 L* POC ABG pCO2 POC ABG pO2 ABG pO2 51.2 L ABG HCO3 18.5 L ABG O2 Saturation 76.7 L ABG Base Excess -10.2 L ABG Hemoglobin 13.5 L Oxyhemoglobin 75.0 L Sodium Potassium Chloride Carbon Dioxide BUN Creatinine Glucose Uric Acid Calcium Total Creatine Kinase Urine WBC (Auto) Urine Creatinine Salicylates Acetaminophen 11/19/19 11/19/19 11/19/19 04:21 04:56 04:56 WBC RBC Hgb Hct MCV MCH Lymph % (Auto) [place] % (Auto) Lymph # [place] # Seg Neutrophils % Seg Neutrophils # PT INR POC ABG pH ABG pH POC ABG pCO2 POC ABG pO2 ABG pO2 ABG HCO3 ABG O2 Saturation ABG Base Excess ABG Hemoglobin Oxyhemoglobin Sodium 136 L Potassium 5.5 H Chloride 96.6 L Carbon Dioxide 18 L BUN 21 H Creatinine 2.2 H Glucose 393 H Uric Acid Calcium Total Creatine Kinase 392 H Urine WBC (Auto) Urine Creatinine Salicylates < 0.3 L Acetaminophen < 5.0 L 11/19/19 11/19/19 11/19/19 06:29 09:04 12:42 WBC RBC Hgb Hct MCV MCH Lymph % (Auto) [place] % (Auto) Lymph # [place] # Seg Neutrophils % Seg Neutrophils # PT INR POC ABG pH 7.208 L 7.186 L 7.205 L ABG pH POC ABG pCO2 57.1 H 66.6 H 62.8 H POC ABG pO2 59 L 58 L ABG pO2 ABG HCO3 ABG O2 Saturation ABG Base Excess ABG Hemoglobin Oxyhemoglobin Sodium Potassium Chloride Carbon Dioxide BUN Creatinine Glucose Uric Acid Calcium Total Creatine Kinase Urine WBC (Auto) Urine Creatinine Salicylates Acetaminophen 11/19/19 11/19/19 11/19/19 12:57 17:59 22:00 WBC RBC Hgb Hct MCV MCH Lymph % (Auto) [place] % (Auto) Lymph # [place] # Seg Neutrophils % Seg Neutrophils # PT INR POC ABG pH 7.204 L 7.180 L ABG pH POC ABG pCO2 66.2 H 68.5 H POC ABG pO2 68 L ABG pO2 ABG HCO3 ABG O2 Saturation ABG Base Excess ABG Hemoglobin Oxyhemoglobin Sodium 135 L Potassium 8.5 H* D Chloride Carbon Dioxide 18 L BUN 40 H Creatinine 3.5 H D Glucose 127 H Uric Acid 10.2 H Calcium 8.0 L Total Creatine Kinase Urine WBC (Auto) Urine Creatinine Salicylates Acetaminophen 11/19/19 11/19/19 11/20/19 22:49 Unknown 05:57 WBC 15.1 H RBC Hgb 11.5 L Hct 35.1 L D MCV 80 L MCH 26 L Lymph % (Auto) 5.0 L [place] % (Auto) 9.0 H Lymph # 0.8 L [place] # 1.4 H Seg Neutrophils % 85.7 H Seg Neutrophils # 13.0 H PT INR POC ABG pH ABG pH POC ABG pCO2 POC ABG pO2 ABG pO2 ABG HCO3 ABG O2 Saturation ABG Base Excess ABG Hemoglobin Oxyhemoglobin Sodium Potassium 8.6 H* Chloride Carbon Dioxide BUN Creatinine Glucose Uric Acid Calcium Total Creatine Kinase 396 H Urine WBC (Auto) Urine Creatinine Salicylates Acetaminophen 11/20/19 11/20/19 11/20/19 05:57 06:05 08:07 WBC RBC Hgb Hct MCV MCH Lymph % (Auto) [place] % (Auto) Lymph # [place] # Seg Neutrophils % Seg Neutrophils # PT INR POC ABG pH 7.312 L ABG pH POC ABG pCO2 57.9 H POC ABG pO2 ABG pO2 ABG HCO3 ABG O2 Saturation ABG Base Excess ABG Hemoglobin Oxyhemoglobin Sodium Potassium Chloride Carbon Dioxide BUN 25 H Creatinine 2.6 H Glucose 120 H Uric Acid Calcium 8.0 L Total Creatine Kinase Urine WBC (Auto) 9.0 H Urine Creatinine Salicylates Acetaminophen 11/20/19 11/20/19 11/21/19 08:07 18:38 04:44 WBC RBC Hgb Hct MCV MCH Lymph % (Auto) [place] % (Auto) Lymph # [place] # Seg Neutrophils % Seg Neutrophils # PT INR POC ABG pH 7.291 L ABG pH POC ABG pCO2 65.9 H POC ABG pO2 77 L ABG pO2 ABG HCO3 ABG O2 Saturation ABG Base Excess ABG Hemoglobin Oxyhemoglobin Sodium Potassium Chloride Carbon Dioxide BUN 24 H Creatinine 1.7 H Glucose Uric Acid Calcium Total Creatine Kinase Urine WBC (Auto) Urine Creatinine 170.7 H Salicylates Acetaminophen 11/21/19 11/21/19 11/21/19 09:54 14:36 20:45 WBC RBC Hgb Hct MCV MCH Lymph % (Auto) [place] % (Auto) Lymph # [place] # Seg Neutrophils % Seg Neutrophils # PT INR POC ABG pH 7.485 H 7.321 L ABG pH POC ABG pCO2 60.5 H POC ABG pO2 74 L ABG pO2 ABG HCO3 ABG O2 Saturation ABG Base Excess ABG Hemoglobin Oxyhemoglobin Sodium 146 H Potassium Chloride 107.3 H Carbon Dioxide BUN Creatinine Glucose Uric Acid Calcium Total Creatine Kinase Urine WBC (Auto) Urine Creatinine Salicylates Acetaminophen 11/23/19 04:35 WBC RBC Hgb 11.6 L Hct 35.2 L MCV 78 L MCH 26 L Lymph % (Auto) 11.5 L [place] % (Auto) 8.5 H Lymph # [place] # 0.9 H Seg Neutrophils % 78.2 H Seg Neutrophils # 8.0 H PT INR POC ABG pH ABG pH POC ABG pCO2 POC ABG pO2 ABG pO2 ABG HCO3 ABG O2 Saturation ABG Base Excess ABG Hemoglobin Oxyhemoglobin Sodium Potassium Chloride Carbon Dioxide BUN Creatinine Glucose Uric Acid Calcium Total Creatine Kinase Urine WBC (Auto) Urine Creatinine Salicylates Acetaminophen Chest x-ray: report reviewed (Reported no acute findings. Unremarkable AP chest.), image reviewed Allied health notes reviewed: nursing
[2019-11-25] MEDS: amLODIPine 5 MG TAB PO SCH (10:53)
[2019-11-25] MEDS: FAMOTIDINE 20 MG TAB PO SCH ×2 (10:53→21:25)
[2019-11-25] MEDS: ENOXAPARIN 40 MG/0.4 ML INJ SUB-Q SCH (10:54)
[2019-11-25] MEDS: QUEtiapine 100 MG TAB PO SCH ×2 (10:59→21:25)
--- NOTE | 2019-11-25 11:06 | Progress Note ---
Assessment and Plan Assessment and plan: Acute hypoxemic hypercapnic respiratory failure. Patient currently on 3 L nasal cannula. O2 sat down to 88 % on room air needs home Oxygen. Pulmonary following. Opioid overdose. Psychiatric consultation pending. Acute kidney injury. Etiology likely secondary to ATN from hypotension from drug overdose. Patient required one dialysis treatment due to severe hyperkalemia, his urine output has markedly improved his electrolytes have been stable now. Nephrology does not believe that he needs any further dialysis. Aspiration pneumonia. Continue antibiotics. Hyperkalemia. Etiology secondary to renal insufficiency. Hyperglycemia. Resolved. Disposition. needs home Oxygen. psych to see. History Interval history: Shortness of breath on exertion Hospitalist Physical - Physical exam Narrative exam: GEN: Not in acute distress, lying in bed, obese HEENT: Normocephalic, atraumatic, Neck: supple, No JVD Lungs: Clear to auscultation bilaterally, no wheeze, heart;S1 and S2 reg, no murmurs Abd:soft, non tender, non distended, normal bowel sounds Ext: No edema, no clubbing, no cyanosis Neuro: AAO X 3, no focal neurological signs - Constitutional Vitals: Temp Pulse Resp BP Pulse Ox 98.4 F 69 16 116/73 90 11/25/19 05:30 11/25/19 10:53 11/25/19 05:30 11/25/19 10:53 11/25/19 05:30 General appearance: Present: no acute distress, well-nourished, other (Patient is orally intubated on mechanical ventilation.) Results - Labs CBC & Chem 7: 11/23/19 04:35 11/23/19 04:35 Labs: Laboratory Last Values WBC 10.3 K/mm3 (4.5-11.0) 11/23/19 04:35 RBC 4.52 M/mm3 (3.65-5.03) 11/23/19 04:35 Hgb 11.6 gm/dl (11.8-15.2) L 11/23/19 04:35 Hct 35.2 % (35.5-45.6) L 11/23/19 04:35 MCV 78 fl (84-94) L 11/23/19 04:35 MCH 26 pg (28-32) L 11/23/19 04:35 MCHC 33 % (32-34) 11/23/19 04:35 RDW 13.9 % (13.2-15.2) 11/23/19 04:35 Plt Count 338 K/mm3 (140-440) 11/23/19 04:35 Lymph % (Auto) 11.5 % (13.4-35.0) L 11/23/19 04:35 [place] % (Auto) 8.5 % (0.0-7.3) H 11/23/19 04:35 Eos % (Auto) 1.3 % (0.0-4.3) 11/23/19 04:35 Baso % (Auto) 0.5 % (0.0-1.8) 11/23/19 04:35 Lymph # 1.2 K/mm3 (1.2-5.4) 11/23/19 04:35 [place] # 0.9 K/mm3 (0.0-0.8) H 11/23/19 04:35 Eos # 0.1 K/mm3 (0.0-0.4) 11/23/19 04:35 Baso # 0.0 K/mm3 (0.0-0.1) 11/23/19 04:35 Seg Neutrophils % 78.2 % (40.0-70.0) H 11/23/19 04:35 Seg Neutrophils # 8.0 K/mm3 (1.8-7.7) H 11/23/19 04:35 PT 15.7 Sec. (12.2-14.9) H 11/19/19 04:21 INR 1.23 (0.87-1.13) H 11/19/19 04:21 POC ABG pH 7.321 (7.35-7.45) L 11/21/19 20:45 ABG pH 7.168 pH Units (7.350-7.450) L* 11/19/19 04:20 POC ABG pCO2 60.5 (35-45) H 11/21/19 20:45 ABG pCO2 52.1 mm Hg 11/19/19 04:20 POC ABG pO2 74 (80-105) L 11/21/19 20:45 ABG pO2 51.2 mm Hg (80.0-90.0) L 11/19/19 04:20 POC ABG HCO3 31.2 (22-26 mml/L) 11/21/19 20:45 ABG HCO3 18.5 mmol/L (20.0-26.0) L 11/19/19 04:20 POC ABG Total CO2 33 (23-27mmol/L) 11/21/19 20:45 POC ABG O2 Sat 93 11/21/19 20:45 ABG O2 Saturation 76.7 % (95.0-99.0) L 11/19/19 04:20 ABG O2 Content 14.3 (0.0-44) 11/19/19 04:20 POC ABG Base Excess 5 ((-2) - (+3)mmol/L) 11/21/19 20:45 ABG Base Excess -10.2 mmol/L (-2.0-3.0) L 11/19/19 04:20 ABG Hemoglobin 13.5 gm/dl (14.0-18.0) L 11/19/19 04:20 ABG Carboxyhemoglobin 1.6 % (0.0-5.0) 11/19/19 04:20 ABG Methemoglobin 0.6 % (0.0-1.5) 11/19/19 04:20 Oxyhemoglobin 75.0 % (95.0-99.0) L 11/19/19 04:20 FiO2 100 % 11/21/19 20:45 Sodium 144 mmol/L (137-145) 11/23/19 04:35 Potassium 3.9 mmol/L (3.6-5.0) 11/23/19 04:35 Chloride 105.5 mmol/L (98-107) 11/23/19 04:35 Carbon Dioxide 22 mmol/L (22-30) D 11/23/19 04:35 Anion Gap 20 mmol/L 11/23/19 04:35 BUN 16 mg/dL (9-20) 11/23/19 04:35 Creatinine 1.3 mg/dL (0.8-1.5) 11/23/19 04:35 Estimated GFR > 60 ml/min 11/23/19 04:35 BUN/Creatinine Ratio 12 % 11/23/19 04:35 Glucose 77 mg/dL (75-100) 11/23/19 04:35 Osmolality 300 Mosm/kg 11/19/19 22:00 Uric Acid 10.2 mg/dL (3.5-7.6) H 11/19/19 22:00 Calcium 9.2 mg/dL (8.4-10.2) 11/23/19 04:35 Total Bilirubin < 0.20 mg/dL (0.1-1.2) 11/19/19 04:21 AST 27 units/L (5-40) 11/19/19 04:21 ALT 32 units/L (7-56) 11/19/19 04:21 Alkaline Phosphatase 61 units/L (35-129) 11/19/19 04:21 Total Creatine Kinase 396 units/L (55-170) H 11/19/19 Unknown CK-MB (CK-2) 4.0 ng/mL (0.0-4.0) 11/19/19 04:21 CK-MB (CK-2) Rel Index 1.0 (0-4) 11/19/19 04:21 Troponin T < 0.010 ng/mL (0.00-0.029) 11/19/19 04:21 NT-Pro-B Natriuret Pep 55.89 pg/mL (0-450) 11/19/19 04:21 Total Protein 7.2 g/dL (6.3-8.2) 11/19/19 04:21 Albumin 4.6 g/dL (3.9-5) 11/19/19 04:21 Albumin/Globulin Ratio 1.8 % 11/19/19 04:21 Urine Color Yellow (Yellow) 11/20/19 08:07 Urine Turbidity Slightly-cloudy (Clear) 11/20/19 08:07 Urine pH 5.0 (5.0-7.0) 11/20/19 08:07 Ur Specific [place] 1.013 (1.003-1.030) 11/20/19 08:07 Urine Protein 30 mg/dl mg/dL (Negative) 11/20/19 08:07 Urine Glucose (UA) Neg mg/dL (Negative) 11/20/19 08:07 Urine Ketones Neg mg/dL (Negative) 11/20/19 08:07 Urine Blood Lg (Negative) 11/20/19 08:07 Urine Nitrite Neg (Negative) 11/20/19 08:07 Urine Bilirubin Neg (Negative) 01/09/20 08:07 Urine Urobilinogen < 2.0 mg/dL (<2.0) 11/20/19 08:07 Ur Leukocyte Esterase Neg (Negative) 11/20/19 08:07 Urine WBC (Auto) 9.0 /HPF (0.0-6.0) H 11/20/19 08:07 Urine RBC (Auto) 24.0 /HPF (0.0-6.0) 11/20/19 08:07 U Epithel Cells (Auto) 1.0 /HPF (0-13.0) 11/20/19 08:07 Urine Bacteria (Auto) 1+ /HPF (Negative) 11/20/19 08:07 Hyaline Casts 4 /LPF 11/20/19 08:07 Urine Mucus Few /HPF 11/20/19 08:07 Urine Creatinine 170.7 mg/dL (0.1-20.0) H 11/20/19 08:07 Urine Sodium 17 mmol/L 11/20/19 08:07 Salicylates < 0.3 mg/dL (2.8-20.0) L 11/19/19 04:56 Urine Opiates Screen Presumptive positive 11/19/19 Unknown Urine Methadone Screen Presumptive negative 11/19/19 Unknown Acetaminophen < 5.0 ug/mL (10.0-30.0) L 11/19/19 04:56 Ur Barbiturates Screen Presumptive negative 11/19/19 Unknown Ur Phencyclidine Scrn Presumptive negative 11/19/19 Unknown Ur Amphetamines Screen Presumptive negative 11/19/19 Unknown U Benzodiazepines Scrn Presumptive negative 11/19/19 Unknown Urine Cocaine Screen Presumptive negative 11/19/19 Unknown U Marijuana (THC) Screen Presumptive negative 11/19/19 Unknown Drugs of Abuse Note Disclamer 11/19/19 Unknown Plasma/Serum Alcohol < 0.01 % (0-0.07) 11/19/19 04:21 Hepatitis A IgM Ab Non-reactive (NonReactive) 11/20/19 02:20 Hep Bs Antigen Non-reactive (Negative) 11/20/19 02:20 Hep B Core IgM Ab Non-reactive (NonReactive) 11/20/19 02:20 Hepatitis C Antibody Non-reactive (NonReactive) 11/20/19 02:20 Active Medications - Current Medications Current Medications: Generic Name Dose Route Start Last Admin Trade Name Freq PRN Reason Stop Dose Admin Amlodipine Besylate 5 mg 11/23/19 11:00 11/25/19 10:53 Amlodipine PO 5 mg QDAY JAVED Administration Lipase/Protease/Amylase 1 each 11/21/19 11:31 Pancreaztawanda Raymond 10,500 Unit FEEDTUBE PRN PRN For Clogged Feeding Tube Enoxaparin Sodium 40 mg 11/21/19 10:00 11/25/19 10:54 Enoxaparin SUB-Q 40 mg QDAY@1000 JAVED Administration Famotidine 20 mg 11/23/19 10:00 11/25/19 10:53 Pepcid PO 20 mg BID JAVED Administration Hydrophilic Ointment 1 applic 11/19/19 04:42 Vaseline Lip Therapy TP Q2HR PRN Dry Lips Multi-Ingred Cream/Lotion/Oil/Oint 1 applic 11/19/19 04:42 Artificial Tears Ophth Oint OU Q4HR PRN Dry Eye(s) Quetiapine Fumarate 200 mg 11/21/19 22:00 11/25/19 10:59 Seroquel PO 200 mg BID JAVED Administration Simple Syrup 15 ml 11/21/19 11:31 Simple Syrup FEEDTUBE PRN PRN Hypoglycemia Simple Syrup 30 ml 11/21/19 11:31 Simple Syrup FEEDTUBE PRN PRN Hypoglycemia Sodium Bicarbonate 325 mg 11/21/19 11:31 Sodium Bicarbonate FEEDTUBE PRN PRN For Clogged Feeding Tube Sodium Chloride 10 ml 11/19/19 22:00 11/25/19 10:54 Sodium Chloride Flush Syringe 10 Ml IV 10 ml BID JAVED Administration Sodium Chloride 10 ml 11/19/19 12:43 Sodium Chloride Flush Syringe 10 Ml IV PRN PRN LINE FLUSH Nutrition/Malnutrition Assess - Dietary Evaluation Nutrition/Malnutrition Findings: Nutrition Notes Start: 11/19/19 12:57 Freq: Status: Active Protocol: Document 11/24/19 14:08 LM (Rec: 11/24/19 14:18 LM [facility]) Nutrition Notes Initial or Follow up Reassessment Other Pertinent Diagnosis Opiod overdose, hyperkalemia, renal insufficiency Current Diet Renal diet Labs/Tests no new labs Pertinent Medications Reviewed Height 6 ft Weight 106.9 kg [place] Body Weight (kg) 80.90 BMI 31.9 Weight change and time frame Wt change noted. Possiblt due to inaccurate bedscale. Weight Status Obese Subjective/Other Information Pt extubated and diet advanced to renal diet for lunch. Pt did not get breakfast this AM but stated he has a good appetite. Burn Absent Trauma Absent Current % PO Negligible Minimum of two criteria No physical signs of malnutrition #1 Nutrition Diagnosis Inadequate oral intake As Evidenced by Signs and Symptoms pt extubated and diet advanced Diagnosis Progress(for reassessment Improved documentation) Is patient on ventilator? No Is Patient Ambulatory and/or Out of Bed No REE-([facility]-confined to bed) 2428.860 Kcal/Kg value to use for calculation 18 Approximate Energy Requirements Using 1924 kcal/Kg Calculation Used for Recommendations Kcal/kg Additional Notes PRO: 75-113g (0.8-1.2g/kg) using AdjBW 94kg Fluid: 1mL/kcal or per MD Nutrition Intervention Change Diet Order: Continue renal Goal #1 meet at least 75% of energy and protein needs Anticipated Discharge Needs: Regular diet Follow-Up By: 11/26/19 Additional Comments F/U for intakes
[2019-11-25] MEDS ORDERED: levoFLOXacin 500 MG TAB PO ONE (12:00)
--- NOTE | 2019-11-25 13:59 | Progress Note ---
Assessment and Plan Patient is awake and alert. Patient is currently on room air with O2 saturation of 91%. He has 3L O2 via nasal canula on standby. Walk test was performed today with O2 saturation of 93%. Patient is afebrile with no leukocytosis. 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 Chest X-ray Reported 11/24/2019 No acute findings. Essentially unremarkable AP chest. - Patient Problems (1) Overdose Current Visit: Yes Status: Acute Plan to address problem: Management as per primary care (2) Pneumonia Current Visit: Yes Status: Acute Plan to address problem: 1. On 3L O2 via nasal canula 2. Albuterol/Atrovent aerosol treatments q6 3. Patient is on levaquin. (3) Respiratory failure Current Visit: Yes Status: Acute Plan to address problem: 1. Improved. On 3L O2 via nasal canula and o2 saturation 96% 2. Albuterol/Atrovent aerosol treatments q6 3. Continue Levaquin 4. Continue S/C Lovenox. 5. Continue Famotidine. Subjective Date of service: 11/25/19 Principal diagnosis: Acute Respiratory Failure on MVS; Acute Toxic/Metabolic Encephalopathy Interval history: Patient is awake and alert. Patient is currently on room air with O2 saturation of 91%. He has 3L O2 via nasal canula on standby. Walk test was performed today with O2 saturation of 93%. Patient is afebrile with no leukocytosis. 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 Chest X-ray Reported 11/24/2019 No acute findings. Essentially unremarkable AP chest. Objective Vital Signs - 12hr 11/25/19 11/25/19 11/25/19 05:30 10:53 11:45 Temperature 98.4 F 98.1 F Pulse Rate 72 69 83 Respiratory 16 20 Rate Blood Pressure 124/73 116/73 128/75 O2 Sat by Pulse 90 91 Oximetry 11/25/19 12:00 Temperature Pulse Rate Respiratory Rate Blood Pressure O2 Sat by Pulse 93 Oximetry Constitutional: no acute distress, alert, other (young obese AAM, normocephalic riding the set rate on MVS at rest) Eyes: non-icteric ENT: oropharynx moist, other (ETT 24 cm Alejandra) Neck: supple, no lymphadenopathy, no JVD, other (large neck circumference) Effort: normal Ascultation: Bilateral: diminished breath sounds, rhonchi Percussion: Bilateral: not dull Cardiovascular: regular rate and rhythm Gastrointestinal: normoactive bowel sounds, soft, non-tender, non-distended Integumentary: normal Extremities: no cyanosis, no edema, pulses normal, no ischemia or petechiae Neurologic: non-focal exam (grossly), pupils equal and round, motor strength normal and Psychiatric: mood appropriate, affect normal CBC and BMP: 11/23/19 04:35 11/23/19 04:35 ABG, PT/INR, D-dimer: ABG POC ABG pH 7.321 (7.35-7.45) L 11/21/19 20:45 ABG pH 7.168 pH Units (7.350-7.450) L* 11/19/19 04:20 POC ABG pCO2 60.5 (35-45) H 11/21/19 20:45 ABG pCO2 52.1 mm Hg 11/19/19 04:20 POC ABG pO2 74 (80-105) L 11/21/19 20:45 ABG pO2 51.2 mm Hg (80.0-90.0) L 11/19/19 04:20 POC ABG HCO3 31.2 (22-26 mml/L) 11/21/19 20:45 POC ABG Total CO2 33 (23-27mmol/L) 11/21/19 20:45 POC ABG O2 Sat 93 11/21/19 20:45 ABG O2 Saturation 76.7 % (95.0-99.0) L 11/19/19 04:20 PT/INR, D-dimer PT 15.7 Sec. (12.2-14.9) H 11/19/19 04:21 INR 1.23 (0.87-1.13) H 11/19/19 04:21 Abnormal lab findings: Abnormal Labs 11/19/19 11/19/19 11/19/19 04:20 04:21 04:21 WBC 11.2 H RBC 5.20 H Hgb Hct MCV 81 L MCH 26 L Lymph % (Auto) [place] % (Auto) Lymph # [place] # Seg Neutrophils % 79.0 H Seg Neutrophils # 8.9 H PT 15.7 H INR 1.23 H POC ABG pH ABG pH 7.168 L* POC ABG pCO2 POC ABG pO2 ABG pO2 51.2 L ABG HCO3 18.5 L ABG O2 Saturation 76.7 L ABG Base Excess -10.2 L ABG Hemoglobin 13.5 L Oxyhemoglobin 75.0 L Sodium Potassium Chloride Carbon Dioxide BUN Creatinine Glucose Uric Acid Calcium Total Creatine Kinase Urine WBC (Auto) Urine Creatinine Salicylates Acetaminophen 11/19/19 11/19/19 11/19/19 04:21 04:56 04:56 WBC RBC Hgb Hct MCV MCH Lymph % (Auto) [place] % (Auto) Lymph # [place] # Seg Neutrophils % Seg Neutrophils # PT INR POC ABG pH ABG pH POC ABG pCO2 POC ABG pO2 ABG pO2 ABG HCO3 ABG O2 Saturation ABG Base Excess ABG Hemoglobin Oxyhemoglobin Sodium 136 L Potassium 5.5 H Chloride 96.6 L Carbon Dioxide 18 L BUN 21 H Creatinine 2.2 H Glucose 393 H Uric Acid Calcium Total Creatine Kinase 392 H Urine WBC (Auto) Urine Creatinine Salicylates < 0.3 L Acetaminophen < 5.0 L 11/19/19 11/19/19 11/19/19 06:29 09:04 12:42 WBC RBC Hgb Hct MCV MCH Lymph % (Auto) [place] % (Auto) Lymph # [place] # Seg Neutrophils % Seg Neutrophils # PT INR POC ABG pH 7.208 L 7.186 L 7.205 L ABG pH POC ABG pCO2 57.1 H 66.6 H 62.8 H POC ABG pO2 59 L 58 L ABG pO2 ABG HCO3 ABG O2 Saturation ABG Base Excess ABG Hemoglobin Oxyhemoglobin Sodium Potassium Chloride Carbon Dioxide BUN Creatinine Glucose Uric Acid Calcium Total Creatine Kinase Urine WBC (Auto) Urine Creatinine Salicylates Acetaminophen 11/19/19 11/19/19 11/19/19 12:57 17:59 22:00 WBC RBC Hgb Hct MCV MCH Lymph % (Auto) [place] % (Auto) Lymph # [place] # Seg Neutrophils % Seg Neutrophils # PT INR POC ABG pH 7.204 L 7.180 L ABG pH POC ABG pCO2 66.2 H 68.5 H POC ABG pO2 68 L ABG pO2 ABG HCO3 ABG O2 Saturation ABG Base Excess ABG Hemoglobin Oxyhemoglobin Sodium 135 L Potassium 8.5 H* D Chloride Carbon Dioxide 18 L BUN 40 H Creatinine 3.5 H D Glucose 127 H Uric Acid 10.2 H Calcium 8.0 L Total Creatine Kinase Urine WBC (Auto) Urine Creatinine Salicylates Acetaminophen 11/19/19 11/19/19 11/20/19 22:49 Unknown 05:57 WBC 15.1 H RBC Hgb 11.5 L Hct 35.1 L D MCV 80 L MCH 26 L Lymph % (Auto) 5.0 L [place] % (Auto) 9.0 H Lymph # 0.8 L [place] # 1.4 H Seg Neutrophils % 85.7 H Seg Neutrophils # 13.0 H PT INR POC ABG pH ABG pH POC ABG pCO2 POC ABG pO2 ABG pO2 ABG HCO3 ABG O2 Saturation ABG Base Excess ABG Hemoglobin Oxyhemoglobin Sodium Potassium 8.6 H* Chloride Carbon Dioxide BUN Creatinine Glucose Uric Acid Calcium Total Creatine Kinase 396 H Urine WBC (Auto) Urine Creatinine Salicylates Acetaminophen 11/20/19 11/20/19 11/20/19 05:57 06:05 08:07 WBC RBC Hgb Hct MCV MCH Lymph % (Auto) [place] % (Auto) Lymph # [place] # Seg Neutrophils % Seg Neutrophils # PT INR POC ABG pH 7.312 L ABG pH POC ABG pCO2 57.9 H POC ABG pO2 ABG pO2 ABG HCO3 ABG O2 Saturation ABG Base Excess ABG Hemoglobin Oxyhemoglobin Sodium Potassium Chloride Carbon Dioxide BUN 25 H Creatinine 2.6 H Glucose 120 H Uric Acid Calcium 8.0 L Total Creatine Kinase Urine WBC (Auto) 9.0 H Urine Creatinine Salicylates Acetaminophen 11/20/19 11/20/19 11/21/19 08:07 18:38 04:44 WBC RBC Hgb Hct MCV MCH Lymph % (Auto) [place] % (Auto) Lymph # [place] # Seg Neutrophils % Seg Neutrophils # PT INR POC ABG pH 7.291 L ABG pH POC ABG pCO2 65.9 H POC ABG pO2 77 L ABG pO2 ABG HCO3 ABG O2 Saturation ABG Base Excess ABG Hemoglobin Oxyhemoglobin Sodium Potassium Chloride Carbon Dioxide BUN 24 H Creatinine 1.7 H Glucose Uric Acid Calcium Total Creatine Kinase Urine WBC (Auto) Urine Creatinine 170.7 H Salicylates Acetaminophen 11/21/19 11/21/19 11/21/19 09:54 14:36 20:45 WBC RBC Hgb Hct MCV MCH Lymph % (Auto) [place] % (Auto) Lymph # [place] # Seg Neutrophils % Seg Neutrophils # PT INR POC ABG pH 7.485 H 7.321 L ABG pH POC ABG pCO2 60.5 H POC ABG pO2 74 L ABG pO2 ABG HCO3 ABG O2 Saturation ABG Base Excess ABG Hemoglobin Oxyhemoglobin Sodium 146 H Potassium Chloride 107.3 H Carbon Dioxide BUN Creatinine Glucose Uric Acid Calcium Total Creatine Kinase Urine WBC (Auto) Urine Creatinine Salicylates Acetaminophen 11/23/19 04:35 WBC RBC Hgb 11.6 L Hct 35.2 L MCV 78 L MCH 26 L Lymph % (Auto) 11.5 L [place] % (Auto) 8.5 H Lymph # [place] # 0.9 H Seg Neutrophils % 78.2 H Seg Neutrophils # 8.0 H PT INR POC ABG pH ABG pH POC ABG pCO2 POC ABG pO2 ABG pO2 ABG HCO3 ABG O2 Saturation ABG Base Excess ABG Hemoglobin Oxyhemoglobin Sodium Potassium Chloride Carbon Dioxide BUN Creatinine Glucose Uric Acid Calcium Total Creatine Kinase Urine WBC (Auto) Urine Creatinine Salicylates Acetaminophen Allied health notes reviewed: nursing
[2019-11-26] MEDS: ENOXAPARIN 40 MG/0.4 ML INJ SUB-Q SCH (09:45)
[2019-11-26] MEDS: FAMOTIDINE 20 MG TAB PO SCH (09:45)
[2019-11-26] MEDS: QUEtiapine 100 MG TAB PO SCH (09:46)
[2019-11-26] MEDS: amLODIPine 5 MG TAB PO SCH (09:47)
--- NOTE | 2019-11-26 12:09 | Discharge Summary ---
Providers - Providers Date of Admission: 11/19/19 06:33 Date of discharge: 11/26/19 Attending physician: BARRY GEORGE 11/19/19 04:42 Consult to Dietitian/Nutrition [CONS] Routine Physician Instructions: Reason For Exam: Reason for Consult: Evaluate nutritional intake 11/19/19 05:51 Consult to Physician [CONS] Urgent Comment: md abdullahi montilla spoke with md Consulting Provider: ROBERT SANTACRUZ Physician Instructions: Reason For Exam: respiratory failure, overdose 11/19/19 11:27 Consult to Dietitian/Nutrition [CONS] Routine Physician Instructions: Reason For Exam: Reason for Consult: Evaluate nutritional intake 11/19/19 12:43 Consult to Physician [CONS] Routine Comment: Consulting Provider: RADHA LOUISE Physician Instructions: Reason For Exam: ARF 11/20/19 00:06 Consult to Physician [CONS] Stat Comment: Dr. Fermin spoke with Dr. Ruiz @ [phone] Consulting Provider: BARBARA RUIZ Physician Instructions: Reason For Exam: Vas cath Placement 11/21/19 09:48 Consult to Dietitian/Nutrition [CONS] Routine Physician Instructions: Reason For Exam: Reason for Consult: Write/Manage Tube Feeding 11/22/19 17:41 Physical Therapy Evaluation and Treat [CONS] Routine Comment: Weakness Reason For Exam: eval and treat. 11/23/19 10:22 psychiatry consult [Consult to Mental Health] [CONS] Routine Reason For Exam: drug OD Place consult to:: pls 11/23/19 13:20 psychiatry consult [Consult to Mental Health] [CONS] Routine Reason For Exam: drug od Place consult to:: elliot Was contact made?: Yes Time called:: 11:55 11/25/19 11:18 Consult to Case Management [CONS] Routine Services Needed at Discharge: Home O2 Notified:: COPY GIVEN TO CM 11/26/19 08:53 Consult to Mental Health [CONS] Routine Reason For Exam: Polysubstance abuse Primary care physician: [employer] Hospitalization Condition: Fair Disposition: DC-01 TO HOME OR SELFCARE Exam - Constitutional Vitals: Temp Pulse Resp BP Pulse Ox 98.1 F 88 18 124/78 92 11/26/19 05:08 11/26/19 09:47 11/26/19 05:08 11/26/19 09:47 11/26/19 05:08 Plan Activity: no restrictions Diet: low fat, low cholesterol, low salt Plan of Treatment: 1.Follow up with [facility] in 1 week. 2.Follow up with [facility] in 1 week. 3.Avoid cocaine, Amphetamines, Marijuana and other illicit drugs. Follow up with: PRIMARY CARE, [Primary Care Provider] - 3-5 Days Prescriptions: Famotidine [Pepcid] 20 mg PO BID #60 tablet
[2019-11-26 14:25] VITALS: BP 115/68
== END 2019-11-26 15:30 | disposition home or self-care (01) | DRG 917 ==
LOC: ED 03:54 → CC1 06:33 → 3A 11-23 17:34
PROVIDERS: ADMIT Internal Medicine Geriatric Medicine; ATTEND Internal Medicine
PROC: 06H033Z Insertion of Infusion Device into Inferior Vena Cava, Percutaneous Approach (ICD-10-PCS; principal; 2019-11-19)
PROC: 5A1945Z Respiratory Ventilation, 24-96 Consecutive Hours (ICD-10-PCS; 2019-11-19)
PROC: B549ZZA Ultrasonography of Inferior Vena Cava, Guidance (ICD-10-PCS; 2019-11-19)
PROC: 4A033R1 Measurement of Arterial Saturation, Peripheral, Percutaneous Approach (ICD-10-PCS; 2019-11-19)
PROC: 5A09357 Assistance with Respiratory Ventilation, Less than 24 Consecutive Hours, Continuous Positive Airway Pressure (ICD-10-PCS; 2019-11-19)
PROC: 0BH17EZ Insertion of Endotracheal Airway into Trachea, Via Natural or Artificial Opening (ICD-10-PCS; 2019-11-19)
PROC: 5A1D70Z Performance of Urinary Filtration, Intermittent, Less than 6 Hours Per Day (ICD-10-PCS; 2019-11-20)
PROC: 5A09357 Assistance with Respiratory Ventilation, Less than 24 Consecutive Hours, Continuous Positive Airway Pressure (ICD-10-PCS; 2019-11-21)
PROC: 5A09357 Assistance with Respiratory Ventilation, Less than 24 Consecutive Hours, Continuous Positive Airway Pressure (ICD-10-PCS; 2019-11-22)
DX: T40.2X1A Poisoning by other opioids, accidental (unintentional), initial encounter (principal); J96.01 Acute respiratory failure with hypoxia; J69.0 Pneumonitis due to inhalation of food and vomit; G92 Toxic encephalopathy; J96.02 Acute respiratory failure with hypercapnia; E87.0 Hyperosmolality and hypernatremia; Y92.89 Other specified places as the place of occurrence of the external cause; F17.210 Nicotine dependence, cigarettes, uncomplicated; F14.90 Cocaine use, unspecified, uncomplicated; E87.6 Hypokalemia; R73.9 Hyperglycemia, unspecified; E66.9 Obesity, unspecified; Z68.33 Body mass index [BMI] 33.0-33.9, adult; D64.9 Anemia, unspecified; F19.10 Other psychoactive substance abuse, uncomplicated
CPT/HCPCS: 31500; 36415; 36600; 71045; 74018; 76770; 80048; 80053; 80074; 80307; 80320; 81001; 82550; 82553; 82570; 82803; 83880; 83930; 84132; 84300; 84484; 84550; 85025; 85610; 87040; 87070; 87086; 87205; 93005; 93010; 94002; 94003; 94660; 94760; G0378; A6250; G0480; J0330; J0456; J0610; J0696; J1630; J1650; J1815; J1956; J2060; J2250; J2704; J3010; J7042; J7050; P9047